=== PATIENT | female | born 1960 | race Caucasian/White ===

== ENCOUNTER 2016-05-01 12:46 | Emergency (ER) | payer MEDICARE ==
--- NOTE | 2016-05-01 14:02 | EDDOCDS ---
Nurse's Notes [facility] Name: Amy Mathis Age: 55 yrs Sex: Female : 1960 Arrival Date: 05/01/2016 Time: 12:46 Bed Triage 1 Private MD: Iban Carlos Diagnosis: Acute sinusitis Presentation: 05/01 12:55 Presenting complaint: Patient states: sick since day after Mary. Patient states hs1 needs something because she hasn't gotten any better. Patient states OTC not helping. Patient states ear ached left side and nasal congestion. Risk factors: Stridor is not present. Drooling is not present. Shortness of breath is not present. Cellulitis is not present. Adult Sepsis Screening: The patient does not have new or worsening altered mentation. Patient's respiratory rate is less than 22. Systolic blood pressure is greater than 100. Patient has a qSOFA score of 0- Negative Sepsis Screen. Suicide/Homicide risk assessment- the patient denies having any suicidal and/or homicidal ideations and does not present with any other emotional, behavioral or mental health complaints. Status: Patient is not a emergency service worker or dependent. Transition of care: patient was not received from another setting of care. 12:55 Acuity: KAYLEY Level 4 hs1 12:55 Method Of Arrival: Walkin/Carried/Asstd hs1 Triage Assessment: 12:57 General: Appears in no apparent distress, Behavior is appropriate for age, cooperative. hs1 Pain: Denies pain. Pain currently is 0 out of 10 on a pain scale. HIV screening NA for this visit Offered previously. EENT: Reports nasal congestion nasal discharge. Respiratory: Airway is patent Respiratory effort is even, unlabored, Respiratory pattern is regular, symmetrical. 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 none - PMHx: none; - PSHx: Cholecystectomy; Tubal ligation; - Family history: Son has/had similar symptoms recently. - Social history: Smoking status: Patient states former smoker of tobacco. No barriers to communication noted, The patient speaks fluent Gibraltarian. - : The pt / caregiver states he / she is not on anticoagulants. Home medication list is obtained from the patient. - Exposure Risk Screening:: None identified. Screenin:58 Screening information is obtained from the patient. Fall risk: No risks identified. hs1 Assistance ADL's: requires no assistance with activities of daily living. Abuse/DV Screen: The patient / caregiver reports he/she is: not in a situation that causes fear, pain or injury. Nutritional screening: No deficits noted. Advance Directives: There is no active DNR order. home support is adequate. Assessment: 13:52 General: Appears in no apparent distress, comfortable, obese, Behavior is appropriate ms18 for age, cooperative. Neurological: No deficits noted. Respiratory: Airway is patent Respiratory effort is even, unlabored. Derm: Skin is pink, warm & dry. 13:58 EENT: Throat is reddened. ms18 Vital Signs: 12:48 BP 156 / 94; Pulse 94; Resp 18 S; Temp 97.4(O); Pulse Ox 97% on R/A; Weight 125.19 kg dd6 (R); Height 5 ft. 4 in. (162.56 cm) (R); 13:55 Pulse 99; Resp 18; Pulse Ox 95% ; Pain 1/10; ms18 12:48 Body Mass Index 47.37 (125.19 kg, 162.56 cm) dd6 Vitals: 12:48 Log In Time: May 01, 2016 at 12:46. dd6 13:52 Strep Screen is obtained and tested: Negative, a GATSNEG culture is ordered in [facility] ms18 and sent. ED Course: 12:47 Patient visited by John Paul Oliva PCA. dd6 12:47 Iban Carlos is Private Physician. dd6 12:47 Patient moved to Waiting dd6 12:49 Patient moved to Pre RCE dd6 12:57 Triage Initiated hs1 13:16 [facility] ef1 13:16 Debbie Coles MD is Attending Physician. ef1 13:21 Patient moved to Triage 1 ms18 13:24 Patient visited by Verena Johnson PA-C. ef1 13:51 Iban Carlos is Referral Physician. ef1 13:53 No IV's were initiated during this patient's visit. No procedures done that require hs1 assistance. 13:55 The patient / caregiver is instructed regarding the plan of care and ED course. Patient ms18 has correct armband on for positive identification. Property sent home with patient. :Personal belongings accompany Pt. 13:55 GATS (NEGATIVE STREP SCREEN) Sent. ms18 Order Results: There are currently no results for this order. Outcome: 13:51 Discharge ordered by Provider. ef1 13:55 Discharge Assessment: Patient awake, alert and oriented x 3. No cognitive and/or ms18 functional deficits noted. Patient verbalized understanding of disposition instructions. patient administered narcotics - no. The following High Risk Discharge criteria are identified: None. Discharged to home ambulatory. Condition: good Condition: stable Condition: improved. Discharge instructions given to patient, Instructed on discharge instructions, follow up and referral plans. medication usage, Demonstrated understanding of instructions, medications, Pt was receptive of discharge instructions/ teaching. Prescriptions given X 3. No special radiology studies were completed. 14:01 Patient left the ED. ms18 Signatures: John Paul Oliva, CURING OVEN TENDER CURING OVEN TENDER dd6 Verena Johnson, PA-C PA-C ef1 Nikki Romano RN RN hs1 Maribell Luna RN RN ms18 Corrections: (The following items were deleted from the chart) 13:54 13:53 Discharge Assessment: Patient awake, alert and oriented x 3. No cognitive and/or hs1 functional deficits noted. Patient verbalized understanding of disposition instructions. patient administered narcotics - no [facility] 13:54 13:53 The following High Risk Discharge criteria are identified: None. Discharged to [facility] home ambulatory, with parent. [facility] 13:54 13:53 Condition: stable [place] [id number] 13:54 13:53 CT Study completed. [place] [address] 13:54 13:53 Discharge instructions given to parents Instructed on discharge instructions, [facility] follow up and referral plans. medication usage, Demonstrated understanding of instructions, medications, Pt was receptive of discharge instructions/ teaching. [facility] 13:54 13:53 Property sent home with patient. [place] [id number] MTDD
--- NOTE | 2016-05-01 14:02 | EDDOCDS ---
Physician Documentation [facility] Name: Amy Mathis Age: 55 yrs Sex: Female : 1960 Arrival Date: 05/01/2016 Time: 12:46 Bed Triage 1 Private MD: Iban Carlos Disposition: 05/01/16 13:51 Discharged to Home/Self Care. Impression: Acute sinusitis. - Condition is Stable. - Discharge Instructions: Sinusitis, [id number]. - Prescriptions for Augmentin 875- 125 mg Oral Tablet - take 1 tablet by ORAL route every 12 hours for 10 days; 20 tablet. Claritin 10 mg Oral Tablet - take 1 tablet by ORAL route once daily As needed; 30 tablet. Mucinex 600 mg - take 1 tablet by ORAL route 2 times per day; 30 tablet. - Medication Reconciliation, Local Pharmacy Hours form. - Follow up: Iban Carlos; When: 1 - 2 days; Reason: Recheck today's complaints, Continuance of care. Follow up: Emergency Department; Reason: Worsening of conditions. - Problem is new. - Symptoms are unchanged. Historical: - Allergies: No known drug Allergies; - Home Meds: 1. none - PMHx: none; - PSHx: Cholecystectomy; Tubal ligation; - Family history: Son has/had similar symptoms recently. - Social history: Smoking status: Patient states former smoker of tobacco. No barriers to communication noted, The patient speaks fluent Zambian. - : The pt / caregiver states he / she is not on anticoagulants. Home medication list is obtained from the patient. - Exposure Risk Screening:: None identified. 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 4 in. (162.56 cm) (R); 13:55 Pulse 99; Resp 18; Pulse Ox 95% ; Pain 1/10; ms18 12:48 Body Mass Index 47.37 (125.19 kg, 162.56 cm) dd6 MDM: 13:17 Strep Screen, Nursing ordered. ef1 13:53 GATS (NEGATIVE STREP SCREEN) Ordered. EDMS Signatures: Dispatcher [employer] EDMS Verena Johnson, JENELLE ALMANZAR ef1 Nikki Romano, RN RN hs1 Maribell LunaRN RN ms18 MTDD
--- NOTE | 2016-05-03 15:02 | EDDOCDS ---
Nurse's Notes [facility] Name: Amy Mathis Age: 55 yrs Sex: Female : 1960 Arrival Date: 05/01/2016 Time: 12:46 Bed Triage 1 Private MD: Iban Carlos Diagnosis: Acute sinusitis Presentation: 05/01 12:55 Presenting complaint: Patient states: sick since day after Mary. Patient states hs1 needs something because she hasn't gotten any better. Patient states OTC not helping. Patient states ear ached left side and nasal congestion. Risk factors: Stridor is not present. Drooling is not present. Shortness of breath is not present. Cellulitis is not present. Adult Sepsis Screening: The patient does not have new or worsening altered mentation. Patient's respiratory rate is less than 22. Systolic blood pressure is greater than 100. Patient has a qSOFA score of 0- Negative Sepsis Screen. Suicide/Homicide risk assessment- the patient denies having any suicidal and/or homicidal ideations and does not present with any other emotional, behavioral or mental health complaints. Status: Patient is not a support services specialist or dependent. Transition of care: patient was not received from another setting of care. 12:55 Acuity: KAYLEY Level 4 hs1 12:55 Method Of Arrival: Walkin/Carried/Asstd hs1 Triage Assessment: 12:57 General: Appears in no apparent distress, Behavior is appropriate for age, cooperative. hs1 Pain: Denies pain. Pain currently is 0 out of 10 on a pain scale. HIV screening NA for this visit Offered previously. EENT: Reports nasal congestion nasal discharge. Respiratory: Airway is patent Respiratory effort is even, unlabored, Respiratory pattern is regular, symmetrical. 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 none - PMHx: none; - PSHx: Cholecystectomy; Tubal ligation; - Family history: Son has/had similar symptoms recently. - Social history: Smoking status: Patient states former smoker of tobacco. No barriers to communication noted, The patient speaks fluent Prydeinig. - : The pt / caregiver states he / she is not on anticoagulants. Home medication list is obtained from the patient. - Exposure Risk Screening:: None identified. Screenin:58 Screening information is obtained from the patient. Fall risk: No risks identified. hs1 Assistance ADL's: requires no assistance with activities of daily living. Abuse/DV Screen: The patient / caregiver reports he/she is: not in a situation that causes fear, pain or injury. Nutritional screening: No deficits noted. Advance Directives: There is no active DNR order. home support is adequate. Assessment: 13:52 General: Appears in no apparent distress, comfortable, obese, Behavior is appropriate ms18 for age, cooperative. Neurological: No deficits noted. Respiratory: Airway is patent Respiratory effort is even, unlabored. Derm: Skin is pink, warm & dry. 13:58 EENT: Throat is reddened. ms18 Vital Signs: 12:48 BP 156 / 94; Pulse 94; Resp 18 S; Temp 97.4(O); Pulse Ox 97% on R/A; Weight 125.19 kg dd6 (R); Height 5 ft. 4 in. (162.56 cm) (R); 13:55 Pulse 99; Resp 18; Pulse Ox 95% ; Pain 1/10; ms18 12:48 Body Mass Index 47.37 (125.19 kg, 162.56 cm) dd6 Vitals: 12:48 Log In Time: May 01, 2016 at 12:46. dd6 13:52 Strep Screen is obtained and tested: Negative, a GATSNEG culture is ordered in [facility] ms18 and sent. ED Course: 12:47 Patient visited by John Paul Oliva PCA. dd6 12:47 Iban Carlos is Private Physician. dd6 12:47 Patient moved to Waiting dd6 12:49 Patient moved to Pre RCE dd6 12:57 Triage Initiated hs1 13:16 [facility] ef1 13:16 Debbie Coles MD is Attending Physician. ef1 13:21 Patient moved to Triage 1 ms18 13:24 Patient visited by Verena Johnson PA-C. ef1 13:51 Iban Carlos is Referral Physician. ef1 13:53 No IV's were initiated during this patient's visit. No procedures done that require hs1 assistance. 13:55 The patient / caregiver is instructed regarding the plan of care and ED course. Patient ms18 has correct armband on for positive identification. Property sent home with patient. :Personal belongings accompany Pt. 13:55 GATS (NEGATIVE STREP SCREEN) Sent. ms18 14:04 [facility] Payment Agreement was scanned into MED[employer] and attached to record. pm4 14:47 T-Sheet-- Draft Copy was scanned into [employer] and attached to record. gb Order Results: There are currently no results for this order. Outcome: 13:51 Discharge ordered by Provider. ef1 13:55 Discharge Assessment: Patient awake, alert and oriented x 3. No cognitive and/or ms18 functional deficits noted. Patient verbalized understanding of disposition instructions. patient administered narcotics - no. The following High Risk Discharge criteria are identified: None. Discharged to home ambulatory. Condition: good Condition: stable Condition: improved. Discharge instructions given to patient, Instructed on discharge instructions, follow up and referral plans. medication usage, Demonstrated understanding of instructions, medications, Pt was receptive of discharge instructions/ teaching. Prescriptions given X 3. No special radiology studies were completed. 14:01 Patient left the ED. ms18 Signatures: Naima Hernandez, Reg Reg gb John Paul Oliva, COOK HELPER PRESERVES COOK HELPER PRESERVES dd6 Verena Johnson, PA-C PA-C ef1 Nikki Romano RN RN hs1 Maribell Luna RN RN ms18 Vitor Dorsey, Reg Reg pm4 Corrections: (The following items were deleted from the chart) 13:54 13:53 Discharge Assessment: Patient awake, alert and oriented x 3. No cognitive and/or hs1 functional deficits noted. Patient verbalized understanding of disposition instructions. patient administered narcotics - no 1 13:54 13:53 The following High Risk Discharge criteria are identified: None. Discharged to [facility] home ambulatory, with parent. hs1 13:54 13:53 Condition: stable hs1 hs1 13:54 13:53 CT Study completed. 1 1 13:54 13:53 Discharge instructions given to parents Instructed on discharge instructions, 1 follow up and referral plans. medication usage, Demonstrated understanding of instructions, medications, Pt was receptive of discharge instructions/ teaching. hs1 13:54 13:53 Property sent home with patient. 1 [facility] Chart Complete MTDD
--- NOTE | 2016-05-03 15:02 | EDDOCDS ---
Physician Documentation [facility] Name: Amy Mathis Age: 55 yrs Sex: Female : 1960 Arrival Date: 05/01/2016 Time: 12:46 Bed Triage 1 Private MD: Iban Carlos Disposition: 05/01/16 13:51 Discharged to Home/Self Care. Impression: Acute sinusitis. - Condition is Stable. - Discharge Instructions: Sinusitis, [id number]. - Prescriptions for Augmentin 875- 125 mg Oral Tablet - take 1 tablet by ORAL route every 12 hours for 10 days; 20 tablet. Claritin 10 mg Oral Tablet - take 1 tablet by ORAL route once daily As needed; 30 tablet. Mucinex 600 mg - take 1 tablet by ORAL route 2 times per day; 30 tablet. - Medication Reconciliation, Local Pharmacy Hours form. - Follow up: Iban Carlos; When: 1 - 2 days; Reason: Recheck today's complaints, Continuance of care. Follow up: Emergency Department; Reason: Worsening of conditions. - Problem is new. - Symptoms are unchanged. Historical: - Allergies: No known drug Allergies; - Home Meds: 1. none - PMHx: none; - PSHx: Cholecystectomy; Tubal ligation; - Family history: Son has/had similar symptoms recently. - Social history: Smoking status: Patient states former smoker of tobacco. No barriers to communication noted, The patient speaks fluent Lithuanian. - : The pt / caregiver states he / she is not on anticoagulants. Home medication list is obtained from the patient. - Exposure Risk Screening:: None identified. 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 4 in. (162.56 cm) (R); 13:55 Pulse 99; Resp 18; Pulse Ox 95% ; Pain 1/10; ms18 12:48 Body Mass Index 47.37 (125.19 kg, 162.56 cm) dd6 MDM: 13:17 Strep Screen, Nursing ordered. ef1 13:53 GATS (NEGATIVE STREP SCREEN) Ordered. EDMS 14:04 [facility] Payment Agreement was scanned into MED[employer] and attached to record. pm4 14:47 T-Sheet-- Draft Copy was scanned into MEDHOST and attached to record. gb Signatures: Dispatcher [employer] EDMS Naima Hernandez, Reg Reg gb Verena Johnson PA-C PA-C ef1 Nikki Romano RN RN hs1 Maribell Luna RN RN ms18 Vitor Dorsey, Reg Reg pm4 The chart was reviewed and I authenticate all verbal orders and agree with the evaluation and treatment provided.Attachments: 14:04 [place] [place] pm4 14:47 T-Sheet-- Draft Copy gb Chart Complete MTDD
--- NOTE | 2016-05-03 15:02 | EDDOCDS ---
Physician Documentation [facility] Name: Amy Mathis Age: 55 yrs Sex: Female : 1960 Arrival Date: 05/01/2016 Time: 12:46 Bed Triage 1 Private MD: Iban Carlos Disposition: 05/01/16 13:51 Discharged to Home/Self Care. Impression: Acute sinusitis. - Condition is Stable. - Discharge Instructions: Sinusitis, [id number]. - Prescriptions for Augmentin 875- 125 mg Oral Tablet - take 1 tablet by ORAL route every 12 hours for 10 days; 20 tablet. Claritin 10 mg Oral Tablet - take 1 tablet by ORAL route once daily As needed; 30 tablet. Mucinex 600 mg - take 1 tablet by ORAL route 2 times per day; 30 tablet. - Medication Reconciliation, Local Pharmacy Hours form. - Follow up: Iban Carlos; When: 1 - 2 days; Reason: Recheck today's complaints, Continuance of care. Follow up: Emergency Department; Reason: Worsening of conditions. - Problem is new. - Symptoms are unchanged. Historical: - Allergies: No known drug Allergies; - Home Meds: 1. none - PMHx: none; - PSHx: Cholecystectomy; Tubal ligation; - Family history: Son has/had similar symptoms recently. - Social history: Smoking status: Patient states former smoker of tobacco. No barriers to communication noted, The patient speaks fluent Swiss. - : The pt / caregiver states he / she is not on anticoagulants. Home medication list is obtained from the patient. - Exposure Risk Screening:: None identified. 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 4 in. (162.56 cm) (R); 13:55 Pulse 99; Resp 18; Pulse Ox 95% ; Pain 1/10; ms18 12:48 Body Mass Index 47.37 (125.19 kg, 162.56 cm) dd6 MDM: 13:17 Strep Screen, Nursing ordered. ef1 13:53 GATS (NEGATIVE STREP SCREEN) Ordered. EDMS 14:04 [place] Payment Agreement was scanned into MEDHOST and attached to record. pm4 14:47 T-Sheet-- Draft Copy was scanned into MEDHOST and attached to record. gb Signatures: Dispatcher [employer] EDMS Naima Hernandez, Reg Reg gb Verena Johnson PA-C PA-C ef1 Nikki Romano RN RN hs1 Maribell Luna RN RN ms18 Vitor Dorsey, Reg Reg pm4 The chart was reviewed and I authenticate all verbal orders and agree with the evaluation and treatment provided.Attachments: 14:04 [place] [place] pm4 14:47 T-Sheet-- Draft Copy gb Chart Complete MTDD
--- NOTE | 2016-05-05 13:13 | EDDOCDS ---
Physician Documentation [facility] Name: Amy Mathis Age: 55 yrs Sex: Female : 1960 Arrival Date: 05/01/2016 Time: 12:46 Bed Triage 1 Private MD: Iban Carlos Disposition: 05/01/16 13:51 Discharged to Home/Self Care. Impression: Acute sinusitis. - Condition is Stable. - Discharge Instructions: Sinusitis, [id number]. - Prescriptions for Augmentin 875- 125 mg Oral Tablet - take 1 tablet by ORAL route every 12 hours for 10 days; 20 tablet. Claritin 10 mg Oral Tablet - take 1 tablet by ORAL route once daily As needed; 30 tablet. Mucinex 600 mg - take 1 tablet by ORAL route 2 times per day; 30 tablet. - Medication Reconciliation, Local Pharmacy Hours form. - Follow up: Iban Carlos; When: 1 - 2 days; Reason: Recheck today's complaints, Continuance of care. Follow up: Emergency Department; Reason: Worsening of conditions. - Problem is new. - Symptoms are unchanged. Historical: - Allergies: No known drug Allergies; - Home Meds: 1. none - PMHx: none; - PSHx: Cholecystectomy; Tubal ligation; - Family history: Son has/had similar symptoms recently. - Social history: Smoking status: Patient states former smoker of tobacco. No barriers to communication noted, The patient speaks fluent Salvadorean. - : The pt / caregiver states he / she is not on anticoagulants. Home medication list is obtained from the patient. - Exposure Risk Screening:: None identified. 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 4 in. (162.56 cm) (R); 13:55 Pulse 99; Resp 18; Pulse Ox 95% ; Pain 1/10; ms18 12:48 Body Mass Index 47.37 (125.19 kg, 162.56 cm) dd6 MDM: 13:17 Strep Screen, Nursing ordered. ef1 13:53 GATS (NEGATIVE STREP SCREEN) Ordered. EDMS 14:04 [place] Payment Agreement was scanned into MEDHOST and attached to record. pm4 14:47 T-Sheet-- Draft Copy was scanned into MEDHOST and attached to record. gb Signatures: Dispatcher [employer] EDMS Naima Hernandez, Reg Reg gb Verena Johnson PA-C PA-C ef1 Nikki Romano RN RN hs1 Maribell Luna RN RN ms18 Vitor Dorsey, Reg Reg pm4 The chart was reviewed and I authenticate all verbal orders and agree with the evaluation and treatment provided.Attachments: 14:04 [place] [place] Payment Agreement pm4 14:47 T-Sheet-- Draft Copy gb Chart Complete MTDD
--- NOTE | 2016-05-05 13:13 | EDDOCDS ---
Physician Documentation [facility] Name: Amy Mathis Age: 55 yrs Sex: Female : 1960 Arrival Date: 05/01/2016 Time: 12:46 Bed Triage 1 Private MD: Iban Carlos Disposition: 05/01/16 13:51 Discharged to Home/Self Care. Impression: Acute sinusitis. - Condition is Stable. - Discharge Instructions: Sinusitis, Aeal-[id number]. - Prescriptions for Augmentin 875- 125 mg Oral Tablet - take 1 tablet by ORAL route every 12 hours for 10 days; 20 tablet. Claritin 10 mg Oral Tablet - take 1 tablet by ORAL route once daily As needed; 30 tablet. Mucinex 600 mg - take 1 tablet by ORAL route 2 times per day; 30 tablet. - Medication Reconciliation, Local Pharmacy Hours form. - Follow up: Iban Carlos; When: 1 - 2 days; Reason: Recheck today's complaints, Continuance of care. Follow up: Emergency Department; Reason: Worsening of conditions. - Problem is new. - Symptoms are unchanged. Historical: - Allergies: No known drug Allergies; - Home Meds: 1. none - PMHx: none; - PSHx: Cholecystectomy; Tubal ligation; - Family history: Son has/had similar symptoms recently. - Social history: Smoking status: Patient states former smoker of tobacco. No barriers to communication noted, The patient speaks fluent Serbian. - : The pt / caregiver states he / she is not on anticoagulants. Home medication list is obtained from the patient. - Exposure Risk Screening:: None identified. 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 4 in. (162.56 cm) (R); 13:55 Pulse 99; Resp 18; Pulse Ox 95% ; Pain 1/10; ms18 12:48 Body Mass Index 47.37 (125.19 kg, 162.56 cm) dd6 MDM: 13:17 Strep Screen, Nursing ordered. ef1 13:53 GATS (NEGATIVE STREP SCREEN) Ordered. EDMS 14:04 [place] Payment Agreement was scanned into [employer] and attached to record. pm4 14:47 T-Sheet-- Draft Copy was scanned into MED[employer] and attached to record. gb Signatures: Dispatcher [employer] EDMS Naima Hernandez, Reg Reg gb Verena Johnson PA-C PA-C ef1 Nikki Romano RN RN hs1 Maribell Luna RN RN ms18 Vitor Dorsey, Reg Reg pm4 The chart was reviewed and I authenticate all verbal orders and agree with the evaluation and treatment provided.Attachments: 14:04 [place] Payment Agreement pm4 14:47 T-Sheet-- Draft Copy gb Chart Complete MTDD
--- NOTE | 2016-05-05 13:13 | EDDOCDS ---
[facility] Name: Amy Mathis Age: 55 yrs Sex: Female : 1960 Arrival Date: 05/01/2016 Time: 12:46 Bed Triage 1 Private MD: Iban Carlos Diagnosis: Acute sinusitis Presentation: 05/01 12:55 Presenting complaint: Patient states: sick since day after Mary. Patient states hs1 needs something because she hasn't gotten any better. Patient states OTC not helping. Patient states ear ached left side and nasal congestion. Risk factors: Stridor is not present. Drooling is not present. Shortness of breath is not present. Cellulitis is not present. Adult Sepsis Screening: The patient does not have new or worsening altered mentation. Patient's respiratory rate is less than 22. Systolic blood pressure is greater than 100. Patient has a qSOFA score of 0- Negative Sepsis Screen. Suicide/Homicide risk assessment- the patient denies having any suicidal and/or homicidal ideations and does not present with any other emotional, behavioral or mental health complaints. Status: Patient is not a provider service representative or dependent. Transition of care: patient was not received from another setting of care. 12:55 Acuity: KAYLEY Level 4 hs1 12:55 Method Of Arrival: Walkin/Carried/Asstd hs1 Triage Assessment: 12:57 General: Appears in no apparent distress, Behavior is appropriate for age, cooperative. hs1 Pain: Denies pain. Pain currently is 0 out of 10 on a pain scale. HIV screening NA for this visit Offered previously. EENT: Reports nasal congestion nasal discharge. Respiratory: Airway is patent Respiratory effort is even, unlabored, Respiratory pattern is regular, symmetrical. 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 none - PMHx: none; - PSHx: Cholecystectomy; Tubal ligation; - Family history: Son has/had similar symptoms recently. - Social history: Smoking status: Patient states former smoker of tobacco. No barriers to communication noted, The patient speaks fluent Iranian. - : The pt / caregiver states he / she is not on anticoagulants. Home medication list is obtained from the patient. - Exposure Risk Screening:: None identified. Screenin:58 Screening information is obtained from the patient. Fall risk: No risks identified. hs1 Assistance ADL's: requires no assistance with activities of daily living. Abuse/DV Screen: The patient / caregiver reports he/she is: not in a situation that causes fear, pain or injury. Nutritional screening: No deficits noted. Advance Directives: There is no active DNR order. home support is adequate. Assessment: 13:52 General: Appears in no apparent distress, comfortable, obese, Behavior is appropriate ms18 for age, cooperative. Neurological: No deficits noted. Respiratory: Airway is patent Respiratory effort is even, unlabored. Derm: Skin is pink, warm & dry. 13:58 EENT: Throat is reddened. ms18 Vital Signs: 12:48 BP 156 / 94; Pulse 94; Resp 18 S; Temp 97.4(O); Pulse Ox 97% on R/A; Weight 125.19 kg dd6 (R); Height 5 ft. 4 in. (162.56 cm) (R); 13:55 Pulse 99; Resp 18; Pulse Ox 95% ; Pain 1/10; ms18 12:48 Body Mass Index 47.37 (125.19 kg, 162.56 cm) dd6 Vitals: 12:48 Log In Time: May 01, 2016 at 12:46. dd6 13:52 Strep Screen is obtained and tested: Negative, a GATSNEG culture is ordered in [facility] ms18 and sent. ED Course: 12:47 Patient visited by John Paul Oliva PCA. dd6 12:47 Iban Carlos is Private Physician. dd6 12:47 Patient moved to Waiting dd6 12:49 Patient moved to Pre RCE dd6 12:57 Triage Initiated hs1 13:16 Verena Johnson PA-C is [facility]. ef1 13:16 Debbie Coles MD is Attending Physician. ef1 13:21 Patient moved to Triage 1 ms18 13:24 Patient visited by Verena Johnson PA-C. ef1 13:51 Iban Carlos is Referral Physician. ef1 13:53 No IV's were initiated during this patient's visit. No procedures done that require hs1 assistance. 13:55 The patient / caregiver is instructed regarding the plan of care and ED course. Patient ms18 has correct armband on for positive identification. Property sent home with patient. :Personal belongings accompany Pt. 13:55 GATS (NEGATIVE STREP SCREEN) Sent. ms18 14:04 [facility] Payment Agreement was scanned into MEDHOMotally and attached to record. pm4 14:47 T-Sheet-- Draft Copy was scanned into [email or web address] and attached to record. gb Order Results: Lab Order: GATS (NEGATIVE STREP SCREEN); SPEC'M 05/01/16 13:38 Test: GATS CULTURE (NEG STREP SCR); Value: GATS RESULT NEGATIVE FOR STREP PYOGENES (GROUP A); Status: F Test: GATS CULTURE (NEG STREP SCR); Value: ORGANISM 1: STREP AGALACTIAE GROUP B; Status: F Test: GATS CULTURE (NEG STREP SCR); Value: STREP AGALACTIAE GROUP B; Status: F Test: GATS CULTURE (NEG STREP SCR); Value: QUANTITY OF GROWTH FEW; Status: F Outcome: 13:51 Discharge ordered by Provider. ef1 13:55 Discharge Assessment: Patient awake, alert and oriented x 3. No cognitive and/or ms18 functional deficits noted. Patient verbalized understanding of disposition instructions. patient administered narcotics - no. The following High Risk Discharge criteria are identified: None. Discharged to home ambulatory. Condition: good Condition: stable Condition: improved. Discharge instructions given to patient, Instructed on discharge instructions, follow up and referral plans. medication usage, Demonstrated understanding of instructions, medications, Pt was receptive of discharge instructions/ teaching. Prescriptions given X 3. No special radiology studies were completed. 14:01 Patient left the ED. ms18 Signatures: Naima Hernandez, Reg Reg gb John Paul Oliva, GRAPHIC ART DESIGNER GRAPHIC ART DESIGNER dd6 Verena Johnson, PA-C PA-C ef1 Nikki Romano RN RN hs1 Maribell Luna RN RN ms18 Vitor Dorsey, Reg Reg pm4 Corrections: (The following items were deleted from the chart) 13:54 13:53 Discharge Assessment: Patient awake, alert and oriented x 3. No cognitive and/or hs1 functional deficits noted. Patient verbalized understanding of disposition instructions. patient administered narcotics - no hs1 13:54 13:53 The following High Risk Discharge criteria are identified: None. Discharged to [facility] home ambulatory, with parent. hs1 13:54 13:53 Condition: stable hs1 hs1 13:53 CT Study completed. hs1 hs1 13:53 Discharge instructions given to parents Instructed on discharge instructions, hs1 follow up and referral plans. medication usage, Demonstrated understanding of instructions, medications, Pt was receptive of discharge instructions/ teaching. hs1 13:53 Property sent home with patient. hs1 hs1 Chart Complete MTDD
== END 2016-05-01 14:01 | disposition home or self-care (01) ==
LOC: M ED 12:46
DX: J01.90 Acute sinusitis, unspecified (principal); Z87.891 Personal history of nicotine dependence

== ENCOUNTER 2016-07-30 20:39 | Emergency (ER) | payer MEDICARE ==
[~2016-07-30] VITALS: Ht 162.6 cm; Wt 117.9 kg
[2016-07-30 20:40] VITALS: BP 203/89
== END 2016-07-30 22:59 | disposition left against medical advice (07) ==
LOC: M ED 22:46
DX: R51 Headache (principal); Z53.21 Procedure and treatment not carried out due to patient leaving prior to being seen by health care provider

== ENCOUNTER → 2016-11-08 | Outpatient (REF) | payer MEDICARE ==
[2016-11-08 15:14] LABS: MEAN CORPUSCULAR HEMOGLOBIN 27.1 pg (27.0-33.0); MEAN CORPUSCULAR HGB CONC 32.9 g/dl (32.0-36.5); MEAN CORPUSCULAR VOLUME 82.4 fl (80.0-96.0); RED CELL DISTRIBUTION WIDTH 14.7 % (11.5-14.5)
[2016-11-08 16:09] LABS: ALBUMIN 3.6 GM/DL (3.2-5.2); ALBUMIN/GLOBULIN RATIO 0.95 (1.00-1.93); ALKALINE PHOSPHATASE 103 U/L (45-117); ALT/SGPT 23 U/L (12-78); ANION GAP 7 MEQ/L (8-16); AST/SGOT 16 U/L (15-37); BILIRUBIN,TOTAL 0.4 MG/DL (0.2-1.0); BLOOD UREA NITROGEN 17 MG/DL (7-18); CALCIUM LEVEL 9.3 MG/DL (8.5-10.1); CARBON DIOXIDE LEVEL 28 MEQ/L (21-32); CHLORIDE LEVEL 102 MEQ/L (98-107); CHOLESTEROL LEVEL 235 MG/DL (<200); CREATININE FOR GFR 0.74 MG/DL (0.55-1.02); GLOMERULAR FILTRATION RATE > 60.0 (>51); GLUCOSE, FASTING 100 MG/DL (70-105); POTASSIUM SERUM 4.4 MEQ/L (3.5-5.1); SODIUM LEVEL 137 MEQ/L (136-145); TOTAL PROTEIN 7.4 GM/DL (6.4-8.2); TRIGLYCERIDES LEVEL 333 MG/DL (<150)
== END ==
LOC: M LAB REF 12:56
PROVIDERS: ATTEND Nurse Practitioner Family
DX: I10 Essential (primary) hypertension (principal); R07.89 Other chest pain; R06.09 Other forms of dyspnea; R61 Generalized hyperhidrosis; Z13.220 Encounter for screening for lipoid disorders; R20.2 Paresthesia of skin; Z13.29 Encounter for screening for other suspected endocrine disorder

== ENCOUNTER → 2016-11-23 | Outpatient (CLI) | payer MEDICARE ==
--- NOTE | 2016-11-23 16:45 | ECGEPIP ---
Stationary ECG Study [facility] Test Date: 2016-11-23 Pat Name: ANGELY HOYOS Department: Room: - Gender: F Regional Trainer: NIKKI : 1960 Requested By: Dari Wood [facility] Order Number: [id number] Reading MD: Fredy Caba Measurements Intervals [place] Rate: 93 P: 58 [place]: 158 QRS: 26 QRSD: 86 T: 49 QT: 365 QTc: 454 Interpretive Statements SINUS RHYTHM Somewhat prominent R waves in V1 and V2, and persistent S waves in V5 and V6, and small Q waves III and aVF; body habitus versus pulmonary disease. Rule out prior inferoposterior injury. No acute ST/T-wave abnormality. No prior tracing for comparison. Clinical correlation advised Electronically Signed On 11-23-2016 16:45:27 EDT by Fredy Caba
--- NOTE | 2016-11-23 17:18 | REP ---
HISTORY: Dyspnea. COMPARISON: 06/25/2013 FINDINGS: The superior mediastinal structures are midline. The cardiac silhouette is unremarkable in size, shape and position. The diaphragmatic surfaces of the lungs are regular and the costophrenic angles are clear. The pulmonary troy are clear. The imaged osseous structures are intact. IMPRESSION: There is no acute cardiopulmonary disease. No significant change from the prior exam. Signed by Ace Vitale DO 11/28/2016 04:24 P
== END ==
LOC: M EKG 15:48
PROVIDERS: ATTEND Nurse Practitioner Family
DX: R06.09 Other forms of dyspnea (principal); R07.89 Other chest pain

== ENCOUNTER → 2018-07-23 | Outpatient (CLI) | payer BC ==
[2018-07-23 13:55] LABS: ALBUMIN 3.9 GM/DL (3.2-5.2); CALCIUM LEVEL 9.2 MG/DL (8.5-10.1); CREATININE FOR GFR 1.08 MG/DL (0.55-1.30); FREE T4 1.03 NG/DL (0.76-1.46); GLOMERULAR FILTRATION RATE 55.7 (>51); PHOSPHORUS LEVEL 4.6 MG/DL (2.5-4.9); POTASSIUM SERUM 4.3 MEQ/L (3.5-5.1); THYROID STIMULATING HORMONE 3.07 uIU/ML (0.358-3.740)
[2018-07-23 14:11] LABS: BASO # 0.1 10^3/uL (0.0-0.2); BASO % 0.7 % (0.0-1.0); EOS # 0.2 10^3/uL (0.0-0.50); EOS % 1.7 % (0.0-3.0); HEMATOCRIT 40.7 % (36.0-47.0); HEMOGLOBIN 12.8 g/dl (12.0-15.5); LYMPH # 3.2 10^3/uL (1.5-4.5); LYMPH % 29.3 % (24.0-44.0); MEAN CORPUSCULAR HEMOGLOBIN 26.4 pg (27.0-33.0); MEAN CORPUSCULAR HGB CONC 31.4 g/dl (32.0-36.5); MEAN CORPUSCULAR VOLUME 83.9 fl (80.0-96.0); MONO # 0.7 10^3/uL (0.0-0.8); MONO % 6.5 % (0.0-5.0); NEUTROPHILS # 6.6 10^3/uL (1.8-7.7); NEUTROPHILS % 61.1 % (36.0-66.0); PLATELET COUNT, AUTOMATED 284 10^3/uL (150-450); RED BLOOD COUNT 4.85 10^6/uL (4.00-5.40); WHITE BLOOD COUNT 10.8 10^3/uL (4.0-10.0)
[2018-07-23 15:02] LABS: HEMOGLOBIN A1c 5.7 %
== END ==
LOC: M WUC 09:36
PROVIDERS: ATTEND Physician Assistant
DX: I10 Essential (primary) hypertension (principal)

== ENCOUNTER → 2020-09-14 | Outpatient (REF) | payer BC | LOC: M LAB REF 14:56 | PROVIDERS: ATTEND Physician Assistant | DX: R30.0 Dysuria (principal) ==

== ENCOUNTER 2020-11-18 14:36 | Emergency (ER) | payer BC ==
[~2020-11-18] VITALS: Ht 162.6 cm; Wt 134.6 kg
[2020-11-18] MEDS ORDERED: LOSA25TA14 (15:30)
[2020-11-18 19:10] LABS: BASO # 0.1 10^3/uL (0.0-0.2); BASO % 0.4 % (0.0-1.0); EOS # 0.1 10^3/uL (0.0-0.5); EOS % 0.6 % (0.0-3.0); HEMATOCRIT 40.9 % (36.0-47.0); HEMOGLOBIN 13.1 g/dl (12.0-15.5); LYMPH % 13.6 % (24.0-44.0); MEAN CORPUSCULAR HEMOGLOBIN 25.6 pg (27.0-33.0); MONO # 0.9 10^3/uL (0.0-0.8); MONO % 5.9 % (2.0-8.0); NEUTROPHILS # 11.8 10^3/uL (1.5-8.5); PLATELET COUNT, AUTOMATED 274 10^3/uL (150-450); RED BLOOD COUNT 5.11 10^6/uL (4.00-5.40)
[2020-11-18 19:28] LABS: ALBUMIN 3.7 GM/DL (3.2-5.2); ALT/SGPT 19 U/L (12-78); BILIRUBIN,DIRECT < 0.1 MG/DL (0.0-0.2); BILIRUBIN,TOTAL 0.5 MG/DL (0.2-1.0); BLOOD UREA NITROGEN 30 MG/DL (7-18); CALCIUM LEVEL 9.8 MG/DL (8.5-10.1); CARBON DIOXIDE LEVEL 26 MEQ/L (21-32); CHLORIDE LEVEL 104 MEQ/L (98-107); CREATININE FOR GFR 1.99 MG/DL (0.55-1.30); GLOMERULAR FILTRATION RATE 27.3 (>51); GLUCOSE, FASTING 102 MG/DL (70-100); LIPASE 70 U/L (73-393); POTASSIUM SERUM 4.6 MEQ/L (3.5-5.1); SODIUM LEVEL 137 MEQ/L (136-145); TOTAL PROTEIN 8.5 GM/DL (6.4-8.2)
--- NOTE | 2020-11-18 21:33 | REPVR ---
PROCEDURE INFORMATION: Exam: US Pelvis Complete, Transabdominal and US Pelvis, Transvaginal Exam date and time: 11/18/2020 8:13 PM Age: 60 years old Clinical indication: Postmenopausal vaginal bleeding. TECHNIQUE: Imaging protocol: Real-time transabdominal and transvaginal pelvic ultrasound (complete) with image documentation. Transvaginal imaging was used for better evaluation of the endometrium, adnexa, and/or cervix. COMPARISON: No relevant prior studies available. FINDINGS: Uterus/cervix: The uterus is anteverted, heterogeneous, and measures 8.2 cm x 4.8 cm x 5.1 cm. The endometrium is thickened and measures approximately 14 mm in thickness. The uterus and endometrium are poorly visualized due to the patient's body habitus. Right adnexa: The right ovary was not visualized due to obscuration by intestinal gas. Left adnexa: The left ovary was not visualized due to obscuration by intestinal gas. Intraperitoneal space: No free fluid is seen in the pelvis from the images obtained. Urinary bladder: The urinary bladder was not distended for optimal evaluation. IMPRESSION: Thickened endometrium. Electronically signed by: Logan Barnes On 11/18/2020 21:32:41 PM
--- NOTE | 2020-11-18 21:33 | REPVR ---
PROCEDURE INFORMATION: Exam: US Retroperitoneal Limited, Kidneys Exam date and time: 11/18/2020 8:13 PM Age: 60 years old Clinical indication: Left flank pain. TECHNIQUE: Imaging protocol: Real-time ultrasound of the retroperitoneum with image documentation. Examination was focused on the kidneys. COMPARISON: No relevant prior studies available. FINDINGS: Right kidney: The right kidney is normal in appearance and measures 10.9 cm in length. There is no renal cortical thinning. The renal cortical echogenicity is within normal limits. No renal lesion is seen. There is no hydronephrosis. No obvious stones are seen in the renal collecting system. Left kidney: The left kidney measures 12.8 cm in length. There is no renal cortical thinning. The renal cortical echogenicity is within normal limits. No renal lesion is seen. There is mild left hydronephrosis. No obvious stones are seen in the renal collecting system. IMPRESSION: Mild left hydronephrosis. Electronically signed by: Logan Barnes On 11/18/2020 21:32:47 PM
[2020-11-18] MEDS ORDERED: NS 1,000 ML IV ONE (22:10)
[2020-11-18] MEDS ORDERED: MORPHINE 4 MG/ML 1ML VIAL/SYRINGE (J2270) IV ONE (23:30)
[2020-11-18] MEDS ORDERED: ONDANSETRON 4MG/2ML VIAL IV ONE (23:30)
--- NOTE | 2020-11-18 23:32 | REPVR ---
PROCEDURE INFORMATION: Exam: CT Abdomen And Pelvis Without Contrast Exam date and time: 11/18/2020 11:00 PM Age: 60 years old Clinical indication: Left flank pain, elevated CR. TECHNIQUE: Imaging protocol: Computed tomography of the abdomen and pelvis without contrast. Radiation optimization: All CT scans at this facility use at least one of these dose optimization techniques: automated exposure control; mA and/or kV adjustment per patient size (includes targeted exams where dose is matched to clinical indication); or iterative reconstruction. COMPARISON: 1. US PELVIC NON-OB COMPLETE 11/18/2020 7:59 PM 2. RENAL US 11/18/2020 7:53:09 PM FINDINGS: Lungs: There is a 3 mm calcified granuloma in the left lower lobe. The lungs were not fully imaged. Heart: No cardiomegaly or pericardial effusion is noted. There are aortic valve and mitral annular calcifications. Mediastinal space: There is a small sliding hiatal hernia. Liver: No liver lesion is seen. The contour of the liver is smooth. The liver is enlarged and in craniocaudal dimension and at the level of the right midclavicular line, the liver measures 16.7 cm. Gallbladder and bile ducts: There has been a cholecystectomy. There is no fluid collection in the gallbladder fossa. No dilation of the bile ducts is noted. No calcified stones are seen in the common bile duct. Pancreas: Unremarkable. No dilation of the main pancreatic duct is noted. Spleen: Unremarkable. No splenomegaly is noted. Adrenal glands: There is a 1.3 cm left adrenal nodule that measures 24 Hounsfield units. The right adrenal gland is normal. Kidneys and ureters: There is a 4 mm calculus in the left proximal ureter and mild left hydronephrosis. There is a 2 mm calculus in a lower pole calyx of the left kidney and a 4 mm calculus in an interpolar calyx of the left kidney. No calculi are noted in the right renal collecting system or right ureter. There is a 1.3 cm fat density lesion in the posterior aspect of the upper pole of the left kidney, which is compatible with an angiomyolipoma (image 57 of the axial series 201). Stomach and bowel: The intra-abdominal portion of the stomach is unremarkable. The small bowel is unremarkable. There is colonic diverticulosis without evidence for diverticulitis. There is no evidence for a bowel obstruction, colitis, pneumatosis intestinalis, intussusception, volvulus, or perforated viscus. Appendix: Normal. There is no evidence for appendicitis. Intraperitoneal space: No free air. No ascites. No abscess. Retroperitoneal space: No fluid collection. No mass. Vasculature: The abdominal aorta is normal in caliber. There are extensive atherosclerotic calcifications. Incidental note is made of small round calcifications in the pelvis, which are compatible with phleboliths. Lymph nodes: No enlarged lymph nodes. Urinary bladder: The partially distended urinary bladder is unremarkable. No stones or masses are seen in the bladder. Reproductive: The endometrium is thickened and measures approximately 14 mm in thickness. The uterus is anteverted. The ovaries are unremarkable. No ovarian cyst or adnexal mass is identified. Bones/joints: There is no fracture or dislocation. No suspicious osteolytic or osteoblastic lesion. There are degenerative changes involving the lower thoracic spine and lumbar spine. Soft tissues: There is a small fat and fluid containing right paramedian ventral hernia located at the level of the left hepatic lobe (image 45 of the axial series 201). IMPRESSION: 1. 4 mm calculus in the left proximal ureter, left nephrolithiasis, and mild left hydronephrosis. 2. Thickened endometrium, which measures approximately 14 mm in thickness. 4. Small fat and fluid containing right paramedian ventral hernia located at the level of the left hepatic lobe. 5. 1.3 cm left adrenal nodule. Consider further evaluation with an adrenal protocol CT abdomen without and with intravenous contrast using 70-second and 15-minute scan delays after the administration of the intravenous contrast in 12 months. ([facility] System[facility]remy Bermudez, ACR White Paper, 2017) 6. 1.3 cm angiomyolipoma arising from the posterior aspect of the upper pole of the left kidney. 7. Colonic diverticulosis without evidence for diverticulitis. 8. Hepatomegaly. COMMENTS: 1. Consistent with the [employer]'s Incidental Findings Committee white paper (J Am Risa Radiol 2017): For any incidental adrenal lesion greater than 1 cm but less than 4 cm classified in this report as benign, likely benign, or containing fat (including classification as an adenoma or myelolipoma), no follow-up imaging is recommended per consensus recommendations based on imaging criteria. Further lab evaluation could be pursued if warranted based on clinical findings. 2. Consistent with the [employer]'s Incidental Findings Committee white paper (J Am Risa Radiol 2018): Any incidental renal lesion less than 1 cm or classified as too small to characterize, or any incidental cystic renal lesion characterized as simple-appearing, is likely benign. No follow-up imaging is recommended for these lesions per consensus recommendations based on imaging criteria. Electronically signed by: Logan Barnes On 11/18/2020 23:32:13 PM
[2020-11-19] MEDS ORDERED: FLOM0.4C39 PO (00:39)
[2020-11-19] MEDS ORDERED: ONDA4TAB6 PO (00:39)
[2020-11-19] MEDS ORDERED: HYDR-3713 PO (00:39)
[2020-11-19 00:46] VITALS: BP 144/65
--- NOTE | 2020-11-19 09:52 | ED PDOC ---
Post-Departure Follow-Up radiology report faxed to Dr. Sanchez, Debbie Roberson MD Nov 19, 2020 09:52
== END 2020-11-19 00:57 | disposition home or self-care (01) ==
LOC: M ED 14:36
DX: K76.0 Fatty (change of) liver, not elsewhere classified (principal); N20.1 Calculus of ureter; D30.02 Benign neoplasm of left kidney; K43.9 Ventral hernia without obstruction or gangrene; E27.9 Disorder of adrenal gland, unspecified; N85.00 Endometrial hyperplasia, unspecified; K57.30 Diverticulosis of large intestine without perforation or abscess without bleeding; R16.2 Hepatomegaly with splenomegaly, not elsewhere classified; I10 Essential (primary) hypertension
CPT/HCPCS: 36415; 74176; 76775; 76830; 76856; 80048; 80076; 81001; 83690; 85025; 99284; J2270; J2405

== ENCOUNTER 2021-03-10 15:31 | Inpatient (IN) | payer BC ==
[~2021-03-10] VITALS: Ht 162.6 cm; Wt 133.6 kg
[~2021-03-10 15:31] MED LIST: FLOM0.4C39 PO; HYDR-3713 PO; LOSA25TA13; ONDA4TAB6 PO
[2021-03-10 18:30] LABS: ABG BASE EXCESS -0.5 (-2.0-2.0); ABG HCO3 23.3 MEQ/L (22.0-26.0); ABG O2 SATURATION 92.9 % (95.0-99.0); ABG PARTIAL PRESSURE CO2 35.7 mmHg (35.0-45.0); ABG STANDARD HCO3 23.9 MEQ/L (22.0-26.0); ABG TOTAL CO2 24.4 MEQ/L (22.0-29.0); ABG pH (ARTERIAL) 7.432 UNITS (7.350-7.450)
[2021-03-10 19:25] LABS: BASO # 0.1 10^3/uL (0.0-0.2); BASO % 0.4 % (0.0-1.0); HEMOGLOBIN 12.1 g/dl (12.0-15.5); LYMPH # 1.3 10^3/uL (1.5-5.0); LYMPH % 8.1 % (24.0-44.0); MEAN CORPUSCULAR HEMOGLOBIN 25.1 pg (27.0-33.0); MEAN CORPUSCULAR VOLUME 80.9 fl (80.0-96.0); MONO # 0.5 10^3/uL (0.0-0.8); MONO % 3.2 % (2.0-8.0); NEUTROPHILS # 13.7 10^3/uL (1.5-8.5); NEUTROPHILS % 85.3 % (36.0-66.0); PLATELET COUNT, AUTOMATED 358 10^3/uL (150-450); RED BLOOD COUNT 4.82 10^6/uL (4.00-5.40)
[2021-03-10 19:49] LABS: CK-MB VALUE MASS < 1.0 NG/ML (<3.6); CPK CREATINE PHOSPHOKINASE 90 U/L (26-192); MB/CK RELATIVE INDEX 1.11 (< OR =4); TROPONIN I 0.06 NG/ML (< 0.10)
[2021-03-10 19:50] LABS: INR 1.03; PROTHROMBIN TIME 13.9 SECONDS (12.7-14.5)
[2021-03-10 19:51] LABS: PARTIAL THROMBOPLASTIN TIME 32.2 SECONDS (25.9-37.0)
[2021-03-10 19:53] LABS: D-DIMER QUANT 1863.45 ng/ml (<500)
[2021-03-10 19:55] LABS: ALBUMIN 2.4 GM/DL (3.2-5.2); BILIRUBIN,TOTAL 0.5 MG/DL (0.2-1.0); C REACTIVE PROTEIN QUANTITATIV 20.9 MG/DL (0.00-0.30); CALCIUM LEVEL 8.8 MG/DL (8.5-10.1); CREATININE FOR GFR 2.28 MG/DL (0.55-1.30); GLOMERULAR FILTRATION RATE 23.3 (>51); POTASSIUM SERUM 4.7 MEQ/L (3.5-5.1); TOTAL PROTEIN 7.5 GM/DL (6.4-8.2)
[2021-03-10] MEDS ORDERED: NS 1,000 ML IV ONE (20:05)
[2021-03-10] MEDS ORDERED: HOME MED LIST COMPLETE! XX SCH (20:45)
[2021-03-10] MEDS ORDERED: ACETAMINOPHEN TAB 650MG DOSE (2X325MG) PO PRN (20:45)
[2021-03-10] MEDS ORDERED: IPRATROPIUM 0.5MG/ALBUTEROL 2.5MG INH SOL UD 3ML (DUONEB) NEB PRN (20:45)
[2021-03-10] MEDS: dexameTHASONE 4 MG/ML 1ML VIAL (J1100 PER 1MG) IV SCH (22:23)
[2021-03-10] MEDS: guaiFENesin ER 600 MG TAB PO SCH (22:24)
[2021-03-10] MEDS ORDERED: REMDESIVIR 200 MG in NS 250 ML IV ONE (23:00)
[2021-03-11 00:07] LABS: ABG HCO3 21.4 MEQ/L (22.0-26.0); ABG O2 SATURATION 90.6 % (95.0-99.0); ABG PARTIAL PRESSURE CO2 36.2 mmHg (35.0-45.0); ABG PARTIAL PRESSURE O2 60.5 mmHg (75.0-100.0); ABG STANDARD HCO3 21.8 MEQ/L (22.0-26.0); ABG TOTAL CO2 22.5 MEQ/L (22.0-29.0); ABG pH (ARTERIAL) 7.389 UNITS (7.350-7.450)
[2021-03-11] MEDS ORDERED: SODIUM CHLORIDE 0.9% INJ 10 ML SYR IV ONE (01:00)
[2021-03-11] MEDS ORDERED: KETOROLAC 30 MG/ML 1ML VIAL IV PRN (04:55)
[2021-03-11] MEDS ORDERED: diphenhydrAMINE 50MG/ML VIAL (J1200) IV PRN (04:55)
[2021-03-11 07:18] LABS: HEMOGLOBIN 11.5 g/dl (12.0-15.5); MEAN CORPUSCULAR HEMOGLOBIN 24.8 pg (27.0-33.0); MEAN CORPUSCULAR HGB CONC 31.1 g/dl (32.0-36.5); MEAN CORPUSCULAR VOLUME 79.7 fl (80.0-96.0); PLATELET COUNT, AUTOMATED 312 10^3/uL (150-450); RED BLOOD COUNT 4.64 10^6/uL (4.00-5.40); WHITE BLOOD COUNT 12.5 10^3/uL (4.0-10.0)
[2021-03-11 07:46] LABS: ALBUMIN 2.1 GM/DL (3.2-5.2); ALT/SGPT 58 U/L (12-78); BILIRUBIN,DIRECT < 0.1 MG/DL (0.0-0.2); BILIRUBIN,TOTAL 0.3 MG/DL (0.2-1.0); BLOOD UREA NITROGEN 59 MG/DL (7-18); CALCIUM LEVEL 8.9 MG/DL (8.5-10.1); CARBON DIOXIDE LEVEL 25 MEQ/L (21-32); CHLORIDE LEVEL 103 MEQ/L (98-107); CREATININE FOR GFR 1.72 MG/DL (0.55-1.30); GLOMERULAR FILTRATION RATE 32.3 (>51); GLUCOSE, FASTING 158 MG/DL (70-100); MAGNESIUM LEVEL 2.9 MG/DL (1.8-2.4); POTASSIUM SERUM 3.7 MEQ/L (3.5-5.1); SODIUM LEVEL 136 MEQ/L (136-145); TOTAL PROTEIN 7.6 GM/DL (6.4-8.2)
[2021-03-11 07:52] LABS: ANISOCYTOSIS 1+; HYPOCHROMASIA 1+; LYMPHOCYTES 9 % (16-44); NEUTROPHILS 90 % (28-66); PLATELET ESTIMATE NORMAL (NORMAL); PROMYELOCYTES 1 % (0-0)
[2021-03-11 07:53] LABS: MICROCYTOSIS 1+
[2021-03-11] MEDS ORDERED: IPRATROPIUM 0.5MG/ALBUTEROL 2.5MG INH SOL UD 3ML (DUONEB) NEB SCH (08:00)
[2021-03-11 08:13] VITALS: BP 126/72
[2021-03-11] MEDS: LIDOCAINE 5% (LIDODERM) PATCH TD SCH ×2 (08:38→20:04)
[2021-03-11] MEDS: **NOTE PATIENT COMMENT** MISC XX SCH (09:00)
[2021-03-11] MEDS: guaiFENesin ER 600 MG TAB PO SCH ×2 (09:41→20:21)
[2021-03-11] MEDS: DOXYCYCLINE HYCLATE 100 MG in D5W MINI-BAG PLUS 100 ML IV SCH ×2 (09:41→20:21)
[2021-03-11] MEDS: ASPIRIN 81MG ENTERIC TABLET PO SCH (09:41)
[2021-03-11] MEDS: dexameTHASONE 4 MG/ML 1ML VIAL (J1100 PER 1MG) IV SCH (09:42)
[2021-03-11] MEDS: cefTRIAXone SOD 1 GM in D5W MINI-BAG PLUS 50 ML IV SCH (11:05)
[2021-03-11] MEDS: COMBIVENT RESPIMAT 100-20MCG INHALER 4GM INH SCH ×2 (11:51→20:40)
[2021-03-11 12:00] VITALS: BP 132/72
[2021-03-11] MEDS: BARICITINIB 2MG TABLET (OLUMIANT) FOR EUA PO SCH (14:39)
[2021-03-11] MEDS: HEPARIN SOD (PORCINE) 5000UNITS/ML 1ML VIAL/SYRINGE SQ SCH ×2 (14:39→21:42)
[2021-03-11 16:00] VITALS: BP 130/84
[2021-03-11 20:00] VITALS: BP 143/69
[2021-03-11] MEDS ORDERED: SODIUM CHLORIDE NASAL 0.65% SPRAY BTL (OCEAN) PRN (21:00)
[2021-03-11] MEDS ORDERED: PANTOPRAZOLE 40MG VIAL (C9113 PER 1) IV ONE (21:05)
[2021-03-11] MEDS: REMDESIVIR 100 MG in NS 250 ML IV SCH (23:06)
[2021-03-12] VITALS: BP 147/79
[2021-03-12] MEDS: SODIUM CHLORIDE 0.9% INJ 10 ML SYR IV SCH (00:21)
[2021-03-12] MEDS: COMBIVENT RESPIMAT 100-20MCG INHALER 4GM INH SCH ×4 (00:26→20:02)
[2021-03-12 04:00] VITALS: BP 154/84
[2021-03-12 05:02] LABS: HEMATOCRIT 34.4 % (36.0-47.0); HEMOGLOBIN 10.6 g/dl (12.0-15.5); MEAN CORPUSCULAR HGB CONC 30.8 g/dl (32.0-36.5); MEAN CORPUSCULAR VOLUME 81.1 fl (80.0-96.0); PLATELET COUNT, AUTOMATED 347 10^3/uL (150-450); RED BLOOD COUNT 4.24 10^6/uL (4.00-5.40); WHITE BLOOD COUNT 12.5 10^3/uL (4.0-10.0)
[2021-03-12 05:13] LABS: INR 0.97; PROTHROMBIN TIME 13.3 SECONDS (12.7-14.5)
[2021-03-12 05:14] LABS: PARTIAL THROMBOPLASTIN TIME 29.4 SECONDS (25.9-37.0)
[2021-03-12 05:24] LABS: TROPONIN I 0.04 NG/ML (< 0.10)
[2021-03-12 05:32] LABS: LYMPHOCYTES 12 % (16-44); MONOCYTES 2 % (0-5); MYELOCYTES 1 % (0-0); NEUTROPHILS 85 % (28-66); PLATELET ESTIMATE NORMAL (NORMAL)
[2021-03-12 05:33] LABS: ANISOCYTOSIS 1+
[2021-03-12 05:41] LABS: ALBUMIN 2.1 GM/DL (3.2-5.2); BILIRUBIN,DIRECT 0.1 MG/DL (0.0-0.2); BILIRUBIN,TOTAL 0.3 MG/DL (0.2-1.0); CALCIUM LEVEL 8.7 MG/DL (8.5-10.1); CREATININE FOR GFR 1.28 MG/DL (0.55-1.30); GLOMERULAR FILTRATION RATE 45.4 (>51); MAGNESIUM LEVEL 2.4 MG/DL (1.8-2.4); TOTAL PROTEIN 6.3 GM/DL (6.4-8.2)
[2021-03-12] MEDS: HEPARIN SOD (PORCINE) 5000UNITS/ML 1ML VIAL/SYRINGE SQ SCH ×3 (06:16→20:42)
[2021-03-12 08:00] VITALS: BP 168/84
[2021-03-12] MEDS: DOXYCYCLINE HYCLATE 100 MG in D5W MINI-BAG PLUS 100 ML IV SCH ×2 (08:10→20:42)
[2021-03-12] MEDS: **NOTE PATIENT COMMENT** MISC XX SCH (09:00)
[2021-03-12] MEDS: cefTRIAXone SOD 1 GM in D5W MINI-BAG PLUS 50 ML IV SCH (09:23)
[2021-03-12] MEDS: dexameTHASONE 4 MG/ML 1ML VIAL (J1100 PER 1MG) IV SCH (09:24)
[2021-03-12] MEDS: BARICITINIB 2MG TABLET (OLUMIANT) FOR EUA PO SCH (09:25)
[2021-03-12] MEDS: guaiFENesin ER 600 MG TAB PO SCH ×2 (09:25→20:42)
[2021-03-12] MEDS: ASPIRIN 81MG ENTERIC TABLET PO SCH (09:25)
[2021-03-12 12:00] VITALS: BP 153/81
[2021-03-12 16:00] VITALS: BP 160/75
[2021-03-12 20:00] VITALS: BP 161/74
[2021-03-12] MEDS: LIDOCAINE 5% (LIDODERM) PATCH TD SCH (20:42)
[2021-03-12] MEDS: REMDESIVIR 100 MG in NS 250 ML IV SCH (22:28)
[2021-03-13] VITALS: BP 150/70
[2021-03-13] MEDS: SODIUM CHLORIDE 0.9% INJ 10 ML SYR IV SCH (00:06)
[2021-03-13] MEDS: COMBIVENT RESPIMAT 100-20MCG INHALER 4GM INH SCH ×4 (01:39→20:00)
[2021-03-13 04:00] VITALS: BP 143/68
[2021-03-13 04:31] LABS: HEMATOCRIT 34.5 % (36.0-47.0); HEMOGLOBIN 10.5 g/dl (12.0-15.5); MEAN CORPUSCULAR HEMOGLOBIN 25.1 pg (27.0-33.0); MEAN CORPUSCULAR HGB CONC 30.4 g/dl (32.0-36.5); MEAN CORPUSCULAR VOLUME 82.5 fl (80.0-96.0); PLATELET COUNT, AUTOMATED 377 10^3/uL (150-450); RED BLOOD COUNT 4.18 10^6/uL (4.00-5.40); WHITE BLOOD COUNT 14.4 10^3/uL (4.0-10.0)
[2021-03-13 04:51] LABS: CALCIUM LEVEL 8.8 MG/DL (8.5-10.1); CREATININE FOR GFR 1.06 MG/DL (0.55-1.30); GLOMERULAR FILTRATION RATE 56.5 (>51); POTASSIUM SERUM 4.2 MEQ/L (3.5-5.1)
[2021-03-13 05:00] LABS: LYMPHOCYTES 6 % (16-44); METAMYELOCYTES 1 % (0-0); MONOCYTES 2 % (0-5); MYELOCYTES 2 % (0-0); NEUTROPHILS 89 % (28-66); PLATELET ESTIMATE NORMAL (NORMAL)
[2021-03-13 05:01] LABS: HYPOCHROMASIA 1+
[2021-03-13] MEDS: HEPARIN SOD (PORCINE) 5000UNITS/ML 1ML VIAL/SYRINGE SQ SCH ×3 (06:15→21:16)
[2021-03-13 08:00] VITALS: BP 154/81
[2021-03-13] MEDS: DOXYCYCLINE HYCLATE 100 MG in D5W MINI-BAG PLUS 100 ML IV SCH ×2 (08:05→20:00)
[2021-03-13] MEDS: **NOTE PATIENT COMMENT** MISC XX SCH (09:00)
[2021-03-13] MEDS: ASPIRIN 81MG ENTERIC TABLET PO SCH (09:14)
[2021-03-13] MEDS: guaiFENesin ER 600 MG TAB PO SCH (09:15)
[2021-03-13] MEDS: BARICITINIB 2MG TABLET (OLUMIANT) FOR EUA PO SCH (09:15)
[2021-03-13] MEDS: dexameTHASONE 4 MG/ML 1ML VIAL (J1100 PER 1MG) IV SCH (09:16)
[2021-03-13] MEDS: cefTRIAXone SOD 1 GM in D5W MINI-BAG PLUS 50 ML IV SCH (09:20)
[2021-03-13 12:00] VITALS: BP 152/84
[2021-03-13 16:00] VITALS: BP 131/80
[2021-03-13 20:00] VITALS: BP 145/70
[2021-03-13] MEDS: LIDOCAINE 5% (LIDODERM) PATCH TD SCH (21:16)
[2021-03-13] MEDS: REMDESIVIR 100 MG in NS 250 ML IV SCH (23:10)
[2021-03-14] VITALS: BP 132/74
[2021-03-14] MEDS: SODIUM CHLORIDE 0.9% INJ 10 ML SYR IV SCH (00:11)
[2021-03-14] MEDS: COMBIVENT RESPIMAT 100-20MCG INHALER 4GM INH SCH ×4 (02:18→19:28)
[2021-03-14 04:00] VITALS: BP 130/68
[2021-03-14 04:52] LABS: HEMOGLOBIN 10.4 g/dl (12.0-15.5); MEAN CORPUSCULAR HEMOGLOBIN 25.1 pg (27.0-33.0); MEAN CORPUSCULAR HGB CONC 30.6 g/dl (32.0-36.5); MEAN CORPUSCULAR VOLUME 81.9 fl (80.0-96.0); PLATELET COUNT, AUTOMATED 346 10^3/uL (150-450); RED BLOOD COUNT 4.15 10^6/uL (4.00-5.40); WHITE BLOOD COUNT 12.8 10^3/uL (4.0-10.0)
[2021-03-14 05:02] LABS: INR 0.94
[2021-03-14 05:03] LABS: PARTIAL THROMBOPLASTIN TIME 28.5 SECONDS (25.9-37.0)
[2021-03-14 05:14] LABS: TROPONIN I 0.04 NG/ML (< 0.10)
[2021-03-14 05:19] LABS: ALT/SGPT 46 U/L (12-78); BILIRUBIN,DIRECT < 0.1 MG/DL (0.0-0.2); BILIRUBIN,TOTAL 0.3 MG/DL (0.2-1.0); BLOOD UREA NITROGEN 31 MG/DL (7-18); CALCIUM LEVEL 8.1 MG/DL (8.5-10.1); CARBON DIOXIDE LEVEL 27 MEQ/L (21-32); CHLORIDE LEVEL 109 MEQ/L (98-107); CREATININE FOR GFR 0.88 MG/DL (0.55-1.30); FERRITIN 352 NG/ML (8-252); GLOMERULAR FILTRATION RATE > 60.0 (>51); GLUCOSE, FASTING 127 MG/DL (70-100); LDH LACTATE DEHYDROGENASE 399 U/L (84-246); MAGNESIUM LEVEL 1.7 MG/DL (1.8-2.4); NT-PRO BNP 502 PG/ML (<125); POTASSIUM SERUM 4.8 MEQ/L (3.5-5.1); SODIUM LEVEL 141 MEQ/L (136-145); TOTAL PROTEIN 5.9 GM/DL (6.4-8.2)
[2021-03-14 05:30] LABS: ANISOCYTOSIS 1+; LYMPHOCYTES 12 % (16-44); MONOCYTES 5 % (0-5); MYELOCYTES 3 % (0-0); NEUTROPHILS 76 % (28-66); PLATELET ESTIMATE NORMAL (NORMAL)
[2021-03-14] MEDS: HEPARIN SOD (PORCINE) 5000UNITS/ML 1ML VIAL/SYRINGE SQ SCH ×3 (06:12→20:31)
[2021-03-14 08:00] VITALS: BP 161/85
[2021-03-14] MEDS ORDERED: MAG SULF 1GM/100ML (MAG RUN) 1 GM in IV 1 EA IV ONE (08:00)
[2021-03-14 08:18] LABS: CK-MB VALUE MASS 1.5 NG/ML (<3.6); MB/CK RELATIVE INDEX 6.52 (< OR =4)
[2021-03-14] MEDS: **NOTE PATIENT COMMENT** MISC XX SCH (09:00)
[2021-03-14] MEDS: DOXYCYCLINE HYCLATE 100 MG in D5W MINI-BAG PLUS 100 ML IV SCH ×2 (09:16→20:28)
[2021-03-14] MEDS: BARICITINIB 2MG TABLET (OLUMIANT) FOR EUA PO SCH (09:27)
[2021-03-14] MEDS: ASPIRIN 81MG ENTERIC TABLET PO SCH (09:28)
[2021-03-14] MEDS: dexameTHASONE 4 MG/ML 1ML VIAL (J1100 PER 1MG) IV SCH ×2 (09:31→20:31)
[2021-03-14] MEDS: cefTRIAXone SOD 1 GM in D5W MINI-BAG PLUS 50 ML IV SCH (09:37)
[2021-03-14 12:00] VITALS: BP 162/72
[2021-03-14] MEDS: guaiFENesin ER 600 MG TAB PO SCH ×2 (12:06→20:31)
[2021-03-14 16:00] VITALS: BP 133/61
[2021-03-14 20:14] VITALS: BP 198/95
[2021-03-14] MEDS: LIDOCAINE 5% (LIDODERM) PATCH TD SCH (20:31)
[2021-03-14] MEDS: REMDESIVIR 100 MG in NS 250 ML IV SCH (23:23)
[2021-03-15] VITALS (7 sets, daily range): BP systolic 117–162; BP diastolic 61–88
[2021-03-15] MEDS: SODIUM CHLORIDE 0.9% INJ 10 ML SYR IV SCH (00:05)
[2021-03-15] MEDS: COMBIVENT RESPIMAT 100-20MCG INHALER 4GM INH SCH ×4 (01:18→19:19)
[2021-03-15 05:43] LABS: HEMATOCRIT 33.9 % (36.0-47.0); HEMOGLOBIN 10.4 g/dl (12.0-15.5); MEAN CORPUSCULAR HEMOGLOBIN 24.9 pg (27.0-33.0); MEAN CORPUSCULAR HGB CONC 30.7 g/dl (32.0-36.5); MEAN CORPUSCULAR VOLUME 81.3 fl (80.0-96.0); PLATELET COUNT, AUTOMATED 379 10^3/uL (150-450); RED BLOOD COUNT 4.17 10^6/uL (4.00-5.40); WHITE BLOOD COUNT 17.7 10^3/uL (4.0-10.0)
[2021-03-15] MEDS: HEPARIN SOD (PORCINE) 5000UNITS/ML 1ML VIAL/SYRINGE SQ SCH ×3 (06:06→22:00)
[2021-03-15 06:09] LABS: BLOOD UREA NITROGEN 27 MG/DL (7-18); CALCIUM LEVEL 8.2 MG/DL (8.5-10.1); CARBON DIOXIDE LEVEL 25 MEQ/L (21-32); CHLORIDE LEVEL 109 MEQ/L (98-107); CREATININE FOR GFR 0.69 MG/DL (0.55-1.30); GLOMERULAR FILTRATION RATE > 60.0 (>51); GLUCOSE, FASTING 177 MG/DL (70-100); POTASSIUM SERUM 5.1 MEQ/L (3.5-5.1); SODIUM LEVEL 138 MEQ/L (136-145)
[2021-03-15 06:48] LABS: ANISOCYTOSIS 1+; LYMPHOCYTES 6 % (16-44); METAMYELOCYTES 4 % (0-0); MONOCYTES 6 % (0-5); MYELOCYTES 1 % (0-0); NEUTROPHILS 83 % (28-66); PLATELET ESTIMATE NORMAL (NORMAL)
[2021-03-15] MEDS: BARICITINIB 2MG TABLET (OLUMIANT) FOR EUA PO SCH (08:46)
[2021-03-15] MEDS: dexameTHASONE 4 MG/ML 1ML VIAL (J1100 PER 1MG) IV SCH ×2 (08:46→22:19)
[2021-03-15] MEDS: guaiFENesin ER 600 MG TAB PO SCH ×2 (08:46→22:01)
[2021-03-15] MEDS: PANTOPRAZOLE 40MG TAB (PROTONIX) PO SCH ×2 (08:46→22:01)
[2021-03-15] MEDS: ASPIRIN 81MG ENTERIC TABLET PO SCH (08:46)
[2021-03-15] MEDS: DOXYCYCLINE HYCLATE 100 MG in D5W MINI-BAG PLUS 100 ML IV SCH (08:47)
[2021-03-15] MEDS: **NOTE PATIENT COMMENT** MISC XX SCH (09:00)
[2021-03-15] MEDS: cefTRIAXone SOD 1 GM in D5W MINI-BAG PLUS 50 ML IV SCH (10:30)
[2021-03-15] MEDS: LIDOCAINE 5% (LIDODERM) PATCH TD SCH ×2 (22:01→22:31)
[2021-03-16] VITALS (9 sets, daily range): BP systolic 136–167; BP diastolic 63–80; O2SAT 92–97
[2021-03-16] MEDS: COMBIVENT RESPIMAT 100-20MCG INHALER 4GM INH SCH ×4 (01:32→20:31)
[2021-03-16] MEDS: HEPARIN SOD (PORCINE) 5000UNITS/ML 1ML VIAL/SYRINGE SQ SCH ×3 (06:08→22:25)
[2021-03-16] MEDS: LevoFLOXacin 750 MG TABLET PO SCH (06:08)
[2021-03-16 06:28] LABS: HEMATOCRIT 34.9 % (36.0-47.0); HEMOGLOBIN 10.4 g/dl (12.0-15.5); MEAN CORPUSCULAR HEMOGLOBIN 25.1 pg (27.0-33.0); MEAN CORPUSCULAR HGB CONC 29.8 g/dl (32.0-36.5); MEAN CORPUSCULAR VOLUME 84.3 fl (80.0-96.0); PLATELET COUNT, AUTOMATED 424 10^3/uL (150-450); RED BLOOD COUNT 4.14 10^6/uL (4.00-5.40); WHITE BLOOD COUNT 21.2 10^3/uL (4.0-10.0)
[2021-03-16 06:45] LABS: PROTHROMBIN TIME 13.6 SECONDS (12.7-14.5)
[2021-03-16 06:46] LABS: PARTIAL THROMBOPLASTIN TIME 26.5 SECONDS (25.9-37.0)
[2021-03-16 06:58] LABS: ALT/SGPT 34 U/L (12-78); BILIRUBIN,DIRECT < 0.1 MG/DL (0.0-0.2); BILIRUBIN,TOTAL 0.3 MG/DL (0.2-1.0); BLOOD UREA NITROGEN 26 MG/DL (7-18); CALCIUM LEVEL 8.8 MG/DL (8.5-10.1); CARBON DIOXIDE LEVEL 24 MEQ/L (21-32); CHLORIDE LEVEL 110 MEQ/L (98-107); FERRITIN 241 NG/ML (8-252); GLOMERULAR FILTRATION RATE > 60.0 (>51); GLUCOSE, FASTING 164 MG/DL (70-100); LDH LACTATE DEHYDROGENASE 315 U/L (84-246); NT-PRO BNP 787 PG/ML (<125); POTASSIUM SERUM 5.1 MEQ/L (3.5-5.1); SODIUM LEVEL 141 MEQ/L (136-145); TOTAL PROTEIN 6.2 GM/DL (6.4-8.2)
[2021-03-16] MEDS: BARICITINIB 2MG TABLET (OLUMIANT) FOR EUA PO SCH (08:59)
[2021-03-16] MEDS: PANTOPRAZOLE 40MG TAB (PROTONIX) PO SCH ×2 (08:59→22:24)
[2021-03-16] MEDS: ASPIRIN 81MG ENTERIC TABLET PO SCH (08:59)
[2021-03-16] MEDS: dexameTHASONE 4 MG/ML 1ML VIAL (J1100 PER 1MG) IV SCH ×2 (08:59→22:34)
[2021-03-16] MEDS: guaiFENesin ER 600 MG TAB PO SCH ×2 (09:00→22:24)
[2021-03-16] MEDS: **NOTE PATIENT COMMENT** MISC XX SCH (09:00)
[2021-03-16] MEDS: LIDOCAINE 5% (LIDODERM) PATCH TD SCH (22:27)
[2021-03-17] VITALS (9 sets, daily range): BP systolic 123–154; BP diastolic 58–67; O2SAT 92–98
[2021-03-17] MEDS: COMBIVENT RESPIMAT 100-20MCG INHALER 4GM INH SCH ×4 (01:40→20:44)
[2021-03-17] MEDS: LevoFLOXacin 750 MG TABLET PO SCH (05:35)
[2021-03-17] MEDS: HEPARIN SOD (PORCINE) 5000UNITS/ML 1ML VIAL/SYRINGE SQ SCH ×3 (05:35→20:45)
[2021-03-17] MEDS ORDERED: LIDOCAINE 5% (LIDODERM) PATCH TD PRN (05:45)
[2021-03-17 07:34] LABS: HEMATOCRIT 35.7 % (36.0-47.0); HEMOGLOBIN 10.8 g/dl (12.0-15.5); MEAN CORPUSCULAR HEMOGLOBIN 25.2 pg (27.0-33.0); MEAN CORPUSCULAR HGB CONC 30.3 g/dl (32.0-36.5); MEAN CORPUSCULAR VOLUME 83.4 fl (80.0-96.0); PLATELET COUNT, AUTOMATED 427 10^3/uL (150-450); RED BLOOD COUNT 4.28 10^6/uL (4.00-5.40); WHITE BLOOD COUNT 22.1 10^3/uL (4.0-10.0)
[2021-03-17 07:55] LABS: BLOOD UREA NITROGEN 30 MG/DL (7-18); CALCIUM LEVEL 8.6 MG/DL (8.5-10.1); CARBON DIOXIDE LEVEL 26 MEQ/L (21-32); CHLORIDE LEVEL 108 MEQ/L (98-107); CREATININE FOR GFR 0.83 MG/DL (0.55-1.30); GLOMERULAR FILTRATION RATE > 60.0 (>51); GLUCOSE, FASTING 134 MG/DL (70-100); MAGNESIUM LEVEL 1.6 MG/DL (1.8-2.4); SODIUM LEVEL 140 MEQ/L (136-145)
[2021-03-17] MEDS: guaiFENesin ER 600 MG TAB PO SCH ×2 (08:52→20:44)
[2021-03-17] MEDS: BARICITINIB 2MG TABLET (OLUMIANT) FOR EUA PO SCH (08:52)
[2021-03-17] MEDS: ASPIRIN 81MG ENTERIC TABLET PO SCH (08:52)
[2021-03-17] MEDS: PANTOPRAZOLE 40MG TAB (PROTONIX) PO SCH ×2 (08:53→20:44)
[2021-03-17] MEDS: dexameTHASONE 4 MG/ML 1ML VIAL (J1100 PER 1MG) IV SCH ×2 (08:56→20:45)
[2021-03-17] MEDS ORDERED: MAG SULF 1GM/100ML (MAG RUN) 1 GM in IV 1 EA IV ONE (12:00)
[2021-03-17] MEDS: **NOTE PATIENT COMMENT** MISC XX SCH (21:00)
[2021-03-18] VITALS (8 sets, daily range): BP systolic 128–139; BP diastolic 60–75; O2SAT 92–95
[2021-03-18] MEDS: COMBIVENT RESPIMAT 100-20MCG INHALER 4GM INH SCH ×4 (01:00→20:32)
[2021-03-18] MEDS: LevoFLOXacin 750 MG TABLET PO SCH (06:02)
[2021-03-18] MEDS: HEPARIN SOD (PORCINE) 5000UNITS/ML 1ML VIAL/SYRINGE SQ SCH ×3 (06:02→22:22)
[2021-03-18] MEDS: PANTOPRAZOLE 40MG TAB (PROTONIX) PO SCH ×2 (08:24→20:29)
[2021-03-18] MEDS: dexameTHASONE 4 MG/ML 1ML VIAL (J1100 PER 1MG) IV SCH ×2 (08:24→20:31)
[2021-03-18] MEDS: ASPIRIN 81MG ENTERIC TABLET PO SCH (08:24)
[2021-03-18] MEDS: BARICITINIB 2MG TABLET (OLUMIANT) FOR EUA PO SCH (08:24)
[2021-03-18] MEDS: guaiFENesin ER 600 MG TAB PO SCH ×2 (08:25→20:29)
[2021-03-18 08:41] LABS: HEMATOCRIT 36.2 % (36.0-47.0); HEMOGLOBIN 10.9 g/dl (12.0-15.5); MEAN CORPUSCULAR HEMOGLOBIN 25.2 pg (27.0-33.0); MEAN CORPUSCULAR HGB CONC 30.1 g/dl (32.0-36.5); MEAN CORPUSCULAR VOLUME 83.8 fl (80.0-96.0); PLATELET COUNT, AUTOMATED 450 10^3/uL (150-450); RED BLOOD COUNT 4.32 10^6/uL (4.00-5.40); WHITE BLOOD COUNT 20.7 10^3/uL (4.0-10.0)
[2021-03-18 09:01] LABS: BLOOD UREA NITROGEN 30 MG/DL (7-18); CALCIUM LEVEL 8.9 MG/DL (8.5-10.1); CARBON DIOXIDE LEVEL 28 MEQ/L (21-32); CHLORIDE LEVEL 106 MEQ/L (98-107); CREATININE FOR GFR 0.75 MG/DL (0.55-1.30); GLOMERULAR FILTRATION RATE > 60.0 (>51); GLUCOSE, FASTING 136 MG/DL (70-100); SODIUM LEVEL 138 MEQ/L (136-145)
[2021-03-18] MEDS: **NOTE PATIENT COMMENT** MISC XX SCH (20:31)
[2021-03-19] VITALS (14 sets, daily range): BP systolic 135–153; BP diastolic 61–66; O2SAT 93–98
[2021-03-19] MEDS: COMBIVENT RESPIMAT 100-20MCG INHALER 4GM INH SCH ×4 (02:44→18:29)
[2021-03-19] MEDS: LevoFLOXacin 750 MG TABLET PO SCH (05:27)
[2021-03-19] MEDS: HEPARIN SOD (PORCINE) 5000UNITS/ML 1ML VIAL/SYRINGE SQ SCH (05:27)
[2021-03-19 07:27] LABS: HEMATOCRIT 36.7 % (36.0-47.0); HEMOGLOBIN 11.3 g/dl (12.0-15.5); MEAN CORPUSCULAR HEMOGLOBIN 25.5 pg (27.0-33.0); MEAN CORPUSCULAR HGB CONC 30.8 g/dl (32.0-36.5); MEAN CORPUSCULAR VOLUME 82.7 fl (80.0-96.0); PLATELET COUNT, AUTOMATED 422 10^3/uL (150-450); RED BLOOD COUNT 4.44 10^6/uL (4.00-5.40); WHITE BLOOD COUNT 18.4 10^3/uL (4.0-10.0)
[2021-03-19 07:45] LABS: BLOOD UREA NITROGEN 34 MG/DL (7-18); CALCIUM LEVEL 9.3 MG/DL (8.5-10.1); CARBON DIOXIDE LEVEL 26 MEQ/L (21-32); CHLORIDE LEVEL 106 MEQ/L (98-107); CREATININE FOR GFR 0.85 MG/DL (0.55-1.30); GLOMERULAR FILTRATION RATE > 60.0 (>51); GLUCOSE, FASTING 119 MG/DL (70-100); MAGNESIUM LEVEL 1.7 MG/DL (1.8-2.4); POTASSIUM SERUM 5.1 MEQ/L (3.5-5.1); SODIUM LEVEL 138 MEQ/L (136-145)
[2021-03-19] MEDS: BARICITINIB 2MG TABLET (OLUMIANT) FOR EUA PO SCH (09:18)
[2021-03-19] MEDS: dexameTHASONE 4 MG/ML 1ML VIAL (J1100 PER 1MG) IV SCH ×2 (09:18→20:23)
[2021-03-19] MEDS: guaiFENesin ER 600 MG TAB PO SCH ×2 (09:18→20:21)
[2021-03-19] MEDS: PANTOPRAZOLE 40MG TAB (PROTONIX) PO SCH ×2 (09:19→20:22)
[2021-03-20] VITALS: O2SAT 99
[2021-03-20] MEDS: COMBIVENT RESPIMAT 100-20MCG INHALER 4GM INH SCH ×3 (01:51→14:06)
[2021-03-20 04:00] VITALS: BP 141/71
[2021-03-20] MEDS ORDERED: PRED10TA2 PO (05:44)
[2021-03-20] MEDS ORDERED: PROV108A INH (05:44)
[2021-03-20] MEDS ORDERED: MUCI600T31 PO (05:44)
[2021-03-20] MEDS: LevoFLOXacin 750 MG TABLET PO SCH (05:59)
[2021-03-20 07:58] LABS: HEMATOCRIT 37.2 % (36.0-47.0); HEMOGLOBIN 11.4 g/dl (12.0-15.5); MEAN CORPUSCULAR HEMOGLOBIN 25.6 pg (27.0-33.0); MEAN CORPUSCULAR HGB CONC 30.6 g/dl (32.0-36.5); MEAN CORPUSCULAR VOLUME 83.6 fl (80.0-96.0); PLATELET COUNT, AUTOMATED 385 10^3/uL (150-450); RED BLOOD COUNT 4.45 10^6/uL (4.00-5.40); WHITE BLOOD COUNT 16.7 10^3/uL (4.0-10.0)
[2021-03-20 08:29] LABS: BLOOD UREA NITROGEN 33 MG/DL (7-18); CARBON DIOXIDE LEVEL 28 MEQ/L (21-32); CHLORIDE LEVEL 104 MEQ/L (98-107); CREATININE FOR GFR 0.78 MG/DL (0.55-1.30); GLOMERULAR FILTRATION RATE > 60.0 (>51); GLUCOSE, FASTING 121 MG/DL (70-100); POTASSIUM SERUM 5.4 MEQ/L (3.5-5.1); SODIUM LEVEL 138 MEQ/L (136-145)
[2021-03-20] MEDS: guaiFENesin ER 600 MG TAB PO SCH (09:16)
[2021-03-20 09:18] VITALS: BP 133/67; O2SAT 81
[2021-03-20] MEDS: PANTOPRAZOLE 40MG TAB (PROTONIX) PO SCH (09:18)
[2021-03-20] MEDS: BARICITINIB 2MG TABLET (OLUMIANT) FOR EUA PO SCH (09:19)
[2021-03-20 09:20] VITALS: O2SAT 95
[2021-03-20] MEDS: dexameTHASONE 4 MG/ML 1ML VIAL (J1100 PER 1MG) IV SCH (09:20)
[2021-03-20 14:00] VITALS: BP 145/79
[2021-04-06] MEDS ORDERED: ARNU1INH3 PO (18:08)
== END 2021-03-20 16:00 | disposition home health service (06) | DRG 137 ==
LOC: M ED 15:31 → M ED INP 20:43 → ENRESERV 03-11 06:24 → M ICU 03-11 08:10 → M 4MAIN 03-15 05:45
PROVIDERS: ADMIT Internal Medicine; ATTEND General Practice
PROC: 3E0333Z Introduction of Anti-inflammatory into Peripheral Vein, Percutaneous Approach (ICD-10-PCS; principal; 2021-03-10)
PROC: XW033E5 Introduction of Remdesivir Anti-infective into Peripheral Vein, Percutaneous Approach, New Technology Group 5 (ICD-10-PCS; 2021-03-10)
DX: U07.1 COVID-19 (principal); J96.01 Acute respiratory failure with hypoxia; J12.82 Pneumonia due to coronavirus disease 2019; I12.9 Hypertensive chronic kidney disease with stage 1 through stage 4 chronic kidney disease, or unspecified chronic kidney disease; E66.9 Obesity, unspecified; Z90.49 Acquired absence of other specified parts of digestive tract; N17.9 Acute kidney failure, unspecified; N18.9 Chronic kidney disease, unspecified; Z68.42 Body mass index [BMI] 45.0-49.9, adult; E83.42 Hypomagnesemia; D72.829 Elevated white blood cell count, unspecified

== ENCOUNTER 2021-04-03 12:03 | Inpatient (IN) | payer BC ==
[~2021-04-03] VITALS: Ht 165.1 cm; Wt 135.2 kg
[~2021-04-03 12:03] MED LIST changes: -LOSA25TA13; +LOSA25TA14; +MUCI600T31 PO; +PRED10TA2 PO; +PROV108A INH
--- OUTSIDE RECORDS SUMMARY | 2021-04-03 12:08 | CCD ---
Author Author [facility] Organization [facility] Address Unknown Phone Unavailable Care Team Providers Care Border Patrol Agent Name Role Phone MARLI, Ada GARZA Unavailable Unavailable LETTIERE, Ada GARZA Unavailable Unavailable LETTIERE, Ada GARZA Unavailable Unavailable LETTIERE, Ada GARZA Unavailable Unavailable LETTIERE, Ada GARZA Unavailable Unavailable LETTIERE, Ada GARZA Unavailable Unavailable LETTIERE, Ada GARZA Unavailable Unavailable LETTIERE, Ada GARZA Unavailable Unavailable LETTIERE, Ada GARZA Unavailable Unavailable LETTIERE, Ada GARZA Unavailable Unavailable LETTIERE, Ada GARZA Unavailable Unavailable LETTIERE, Ada GARZA Unavailable Unavailable LETTIERE, Ada GARZA Unavailable Unavailable LETTIERE, Ada GARZA Unavailable Unavailable LETTIERE, Ada GARZA Unavailable Unavailable LETTIERE, Ada GARZA Unavailable Unavailable LETTIERE, Ada GARZA Unavailable Unavailable LETTIERE, Ada GARZA Unavailable Unavailable LETTIERE, A PARKER PA Unavailable Unavailable LETTIERE, A PARKER PA Unavailable Unavailable LETTIERE, A PARKER PA Unavailable Unavailable LETTIERE, A PARKER PA Unavailable Unavailable LETTIERE, A PARKER PA Unavailable Unavailable LETTIERE, A PARKER PA Unavailable Unavailable LETTIERE, A PARKER PA Unavailable Unavailable LETTIERE, A PARKER PA Unavailable Unavailable LETTIERE, A PARKER PA Unavailable Unavailable LETTIERE, A PARKER PA Unavailable Unavailable LETTIERE, A PARKER PA Unavailable Unavailable LETTIERE, A PARKER PA Unavailable Unavailable LETTIERE, A PARKER PA Unavailable Unavailable RING, K BEN PA Unavailable Unavailable RING, K BEN PA Unavailable Unavailable RING, K BEN PA Unavailable Unavailable RING, K BEN PA Unavailable Unavailable RING, K BEN PA Unavailable Unavailable RING, K BEN PA Unavailable Unavailable RING, K BEN PA Unavailable Unavailable RING, K BEN PA Unavailable Unavailable RING, K BEN PA Unavailable Unavailable RING, K BEN PA Unavailable Unavailable RING, K BEN PA Unavailable Unavailable RING, K BEN PA Unavailable Unavailable RING, K BEN PA Unavailable Unavailable RING, K BEN PA Unavailable Unavailable RING, K BEN PA Unavailable Unavailable RING, K BEN PA Unavailable Unavailable RING, K BEN PA Unavailable Unavailable RING, K BEN PA Unavailable Unavailable RING, K BEN PA Unavailable Unavailable RING, K BEN PA Unavailable Unavailable RING, K BEN PA Unavailable Unavailable RING, K BEN PA Unavailable Unavailable RING, K BEN PA Unavailable Unavailable Re-disclosure Warning The records that you are about to access may contain information from federally-assisted alcohol or drug abuse programs. If such information is present, then the following federally mandated warning applies: This information has been disclosed to you from records protected by federal confidentiality rules (42 CFR part 2). The federal rules prohibit you from making any further disclosure of this information unless further disclosure is expressly permitted by the written consent of the person to whom it pertains or as otherwise permitted by 42 CFR part 2. A general authorization for the release of medical or other information is NOT sufficient for this purpose. The Federal rules restrict any use of the information to criminally investigate or prosecute any alcohol or drug abuse patient.The records that you are about to access may contain highly sensitive health information, the redisclosure of which is protected by Article 27-F of the [place] State Public Health law. If you continue you may have access to information: Regarding HIV / AIDS; Provided by facilities licensed or operated by the [facility] Office of Mental Health; or Provided by the [facility] Office for People With Developmental Disabilities. If such information is present, then the following [facility] mandated warning applies: This information has been disclosed to you from confidential records which are protected by state law. State law prohibits you from making any further disclosure of this information without the specific written consent of the person to whom it pertains, or as otherwise permitted by law. Any unauthorized further disclosure in violation of state law may result in a fine or mcfp sentence or both. A general authorization for the release of medical or other information is NOT sufficient authorization for further disc losure. Family History Family Member Name Family Member Gender Family Member Status Date o f Status Description Data Source(s) Unknown Unknown Problem [facility]ENT ([facility], [facility]) Encounters Encounter Providers Location Date Indications Data Source(s ) Outpatient Attender: PARKER Wong Prim neelam 01/31/2021 01:45:00 PM EDT [facility] ([facility]) Outpatient Attender: BEN Wong Primary 09/14/2020 12:30:00 PM EDT [facility] ([facility], [facility]) Medications Medication Brand Name Start Date Product Form Dose Route Admi nistrative Instructions Pharmacy Instructions Status Indications Reaction Description Data Source(s) Amoxicillin 875 MG Oral Tablet Amoxicillin 01/31/2021 12:00:00 AM EDT active MEDENT ([facility], [facility]) Amoxicillin 875 MG / Clavulanate 125 MG Oral Tablet Am oxicillin/Clavulanate Potassium 09/14/2020 12:00:00 AM EDT ORAL completed [facility] ([facility], [facility]) Losartan Potassium 25 MG Oral Tablet Losartan Potassium 12:00:00 AM EDT ORAL active MEDENT ([facility], [facility]) No Active Medications 09/14/2020 12:00:00 AM EDT completed [facility] ([facility], [facility]) Insurance Providers Payer name Policy type / Coverage type Policy ID Covered democrat ID Covered democrat's relationship to engel Policy Engel Plan Information [employer] [id number] SP U [id number] Managed Care [place] P [id number] S [id number] Managed [place] P [id number] S [id number] Medicaid S [id number] S [id number] BCBS/[employer] Commercial [id number] Self [id number] BCBS/[employer] [id number] Self [id number] [place]/307 [id number] SP [id number] [place]/307 [id number] SP [id number] [place] MED[place] [id number] SP [id number] [employer] BCBS B [id number] S [id number] [place] P[place] 302/307 [id number] SP [id number] [place] 306/806 [id number] SP [id number] [place] 306/806 [id number] SP [id number] Problems, Conditions, and Diagnoses No Information Surgeries/Procedures Procedure Description Date Indications Data Source(s) OFFICE OUTPATIENT VISIT 15 MINUTES 01/31/2021 12:00:00 AM EDT [facility] ([facility], [facility]) OFFICE OUTPATIENT VISIT 25 MINUTES 09/14/2020 12:00:00 AM EDT [facility] ([facility], [facility]) Results ID Date Data Source [id number] 03/10/2021 06:41:00 PM EST [facility] Name Value Range Interpretation Code Description Data Hortencia rce(s) Supporting Document(s) Respiratory pathogens identified [Type] in Nasopharynx by Probe and target amplification method SARS-CoV-2 (COVID 19) [facility] This lab was ordered by [facility] a nd reported by [facility]. ID Date Data Source [id number] 01/31/2021 12:00:00 AM EDT [facility] Name Value Range Interpretation Code Description Data Hortencia rce(s) Supporting Document(s) SARS-CoV2 Rapid Antigen Negative [facility] This lab was ordered by [facility] and reported by [facility]. ID Date Data Source [id number] 09/14/2020 01:29:00 PM EDT [facility] Name Value Range Interpretation Code Description Data Hortencia rce(s) Supporting Document(s) Bacteria identified in Urine by Culture Laboratory test result [facility] ([facility]) FULL REPORT IN LAB NOTES ([facility] and [facility] ). NO GROWTH CLINICAL SIGNIFICANCE 2 OR MORE ORGANISMS ID Date Data Source [id number] 09/14/2020 12:00:00 AM EDT [facility] Name Value Range Interpretation Code Description Data Hortencia rce(s) Supporting Document(s) SARS-CoV2 Rapid Antigen Negative [facility] This lab was reported by [facility]. Procedure Social History Code Duration Value Status Description Data Source(s ) Smoking 01/31/2021 12:00:00 AM EDT Patient is a former smoker completed Patient is a former smoker [facility] ([facility]) Vital Signs ID Date Data Source UNK Name Value Range Interpretation Code Description Data Source(s) Systolic blood pressure 160 mm[Hg] 160 mm[Hg] [facility] Diastolic blood pressure 93 mm[Hg] 93 mm[Hg] [facility] ([facility]) Body height 64 [in_i] 64 [in_i] [facility] ([facility]) 5'4" Body mass index (BMI) [Ratio] 50.8 kg/m2 50.8 k g/m2 [facility] ([facility]) Heart rate 89 /min 89 /min [facility] ([facility]) Respiratory rate 19 /min 19 /min [facility] ( [facility]) Oxygen saturation in Arterial blood by Pulse oximetry 98 % 98 % [facility] ([facility]) Body temperature 98.7 [degF] 98.7 [degF] [facility] ([facility], [facility]) Body weight 296.00 [lb_av] 296.00 [lb_av] MEDEN T ([facility], [facility]) Body temperature 99.1 [degF] 99.1 [degF] [facility] ([facility], [facility]) Respiratory rate 20 /min 20 /min [facility]) Oxygen saturation in Arterial blood by Pulse oximetry 97 % 97 % [facility] ([facility], [facility]) Systolic blood pressure 148 mm[Hg] 148 mm[Hg] EDENT ([facility], [facility]) Diastolic blood pressure 100 mm[Hg] 100 mm[Hg] [facility], [facility]) Heart rate 89 /min 89 /min [facility] ([facility], [facility]) Body height 64 [in_i] 64 [in_i] [facility] ([facility], [facility]) 5'4"
[2021-04-03 13:07] LABS: VENOUS BASE EXCESS 1.2 (-2.0-2.0); VENOUS O2 SATURATION 89.4 % (60.0-80.0); VENOUS PARTIAL PRESSURE CO2 47.4 mmHg (38.0-50.0); VENOUS PH 7.373 UNITS (7.330-7.430); VENOUS STANDARD HCO3 25.4 MEQ/L; VENOUS TOTAL CO2 28.4 MEQ/L (24.0-28.0)
--- OUTSIDE RECORDS SUMMARY | 2021-04-03 13:07 | CCD ---
Author Author [facility] Organization [facility] Address Unknown Phone Unavailable Care Team Providers Care Inspector Canned Food Reconditioning Name Role Phone MARLI, Ada GARZA Unavailable [...] is protected by Article 27-F of the [place] State Public Health law. If you continue you may have access to information: Regarding HIV / AIDS; Provided by facilities licensed or operated by the [facility] Office of Mental Health; or Provided by the [facility] Office for People With Developmental Disabilities. If such information is present, then the following [facility] mandated warning applies: This information has been [...] law may result in a fine or penitentiary sentence or both. A general authorization for the release of medical or other information is NOT sufficient authorization for further disc losure. Family History Family Member Name Family Member Gender Family Member Status Date o f Status Description Data Source(s) Unknown Unknown Problem [facility] ([facility], [facility]) Encounters Encounter Providers Location Date Indications Data Source(s ) Outpatient Attender: PARKER Wong Prim neelam 01/31/2021 01:45:00 PM EDT [facility] ([facility], [facility]) Outpatient Attender: BEN Wong Primary 09/14/2020 12:30:00 PM EDT [facility] ([facility], [facility]) Medications Medication Brand Name Start Date Product Form Dose Route Admi nistrative Instructions Pharmacy Instructions Status Indications Reaction Description Data Source(s) Amoxicillin 875 MG Oral Tablet Amoxicillin 01/31/2021 12:00:00 AM EDT active [facility] ([facility], [facility]) Amoxicillin 875 MG / Clavulanate 125 MG Oral Tablet Am oxicillin/Clavulanate Potassium 09/14/2020 12:00:00 AM EDT ORAL completed [facility] ([facility], [facility]) Losartan Potassium 25 MG Oral Tablet Losartan Potassium 12:00:00 AM EDT ORAL active [facility] ([facility], [facility]) No Active Medications 09/14/2020 12:00:00 AM EDT completed [facility] ([facility] [facility], [facility]) Insurance Providers Payer name Policy type / Coverage type Policy ID Covered alliance party ID Covered alliance party's relationship to engel Policy Engel Plan Information [employer] [id number] SP U [id number] Managed Care [place] P [id number] S [id number] Managed Care [place] P [id number] S [id number] Medicaid S [id number] S [id number] BCBS/[employer] Commercial [id number] Self [id number] BCBS/[employer] Commercial [id number] Self [id number] [place]/307 [id number] SP [id number] [place] 302/307 [id number] SP [id number] [place] MED[place]ARE [id number] SP [id number] [employer]CELLUS BCBS B [id number] S [id number] BCBS [place] PPO 302/307 [id number] SP [id number] [place] 306/806 [id number] SP [id number] [place] 306/806 [id number] SP [id number] Problems, Conditions, and Diagnoses No Information Surgeries/Procedures Procedure Description Date Indications Data Source(s) OFFICE OUTPATIENT VISIT 15 MINUTES 01/31/2021 12:00:00 AM EDT [facility] ([facility], [facility]) OFFICE OUTPATIENT VISIT 25 MINUTES 09/14/2020 12:00:00 AM EDT [facility] ([facility], [facility]) Results ID Date Data Source [id number] 03/10/2021 06:41:00 PM EST [facility] Name Value Range Interpretation Code Description Data Hortencia rce(s) Supporting Document(s) Respiratory pathogens identified [Type] in Nasopharynx by Probe and target amplification method SARS-CoV-2 (COVID 19) [facility] This lab was ordered by [facility] a nd reported by [facility]. ID Date Data Source [id number] 01/31/2021 12:00:00 AM EDT [facility] Name Value Range Interpretation Code Description Data Hortencia rce(s) Supporting Document(s) SARS-CoV2 Rapid Antigen Negative [facility] This lab was ordered by [facility] and reported by [facility]. ID Date Data Source [id number] 09/14/2020 01:29:00 PM EDT [facility] Name Value Range Interpretation Code Description Data Hortencia rce(s) Supporting Document(s) Bacteria identified in Urine by Culture Laboratory test result [facility] ([facility]) FULL REPORT IN LAB NOTES [facility] NO GROWTH CLINICAL SIGNIFICANCE 2 OR MORE ORGANISMS ID Date Data Source [id number] 09/14/2020 12:00:00 AM [facility] Name Value Range Interpretation Code Description Data Hortencia rce(s) Supporting Document(s) SARS-CoV2 Rapid Antigen Negative [facility] This lab was reported by [facility]. Procedure Social History Code Duration Value Status Description Data Source(s ) Smoking 01/31/2021 12:00:00 AM EDT Patient is a former smoker completed Patient is a former smoker [facility] ([facility]) Vital Signs ID Date Data Source UNK Name Value Range Interpretation Code Description Data Source(s) Heart rate 89 /min 89 /min [facility] ([facility]) Systolic blood pressure 160 mm[Hg] 160 mm[Hg] [facility] Respiratory rate 19 /min 19 /min [facility] ( [facility]) Diastolic blood pressure 93 mm[Hg] 93 mm[Hg] [facility] ([facility]) Body height 64 [in_i] 64 [in_i] [facility] ([facility]) 5'4" Body mass index (BMI) [Ratio] 50.8 kg/m2 50.8 k g/m2 [facility] ([facility]) Oxygen saturation in Arterial blood by Pulse oximetry 98 % 98 % [facility] ([facility]) Body temperature 98.7 [degF] 98.7 [degF] [facility] ([facility], [facility]) Body weight 296.00 [lb_av] 296.00 [lb_av] MEDEN T ([facility], [facility]) Body temperature 99.1 [degF] 99.1 [degF] [facility] ([facility], [facility]) Systolic blood pressure 148 mm[Hg] 148 mm[Hg] EDENT ([place] [facility], [facility]) Diastolic blood pressure 100 mm[Hg] 100 mm[Hg] [facility] ([facility], [facility]) Heart rate 89 /min 89 /min [facility] ([facility], [facility]) Respiratory rate 20 /min 20 /min [facility] ( [facility], [facility]) Oxygen saturation in Arterial blood by Pulse oximetry 97 % 97 % [facility] ([facility], [facility]) Body height 64 [in_i] 64 [in_i] [facility] ([facility], [facility]) 5'4"
[2021-04-03 13:11] LABS: BASO % 0.3 % (0.0-1.0); EOS # 0.3 10^3/uL (0.0-0.5); EOS % 4.4 % (0.0-3.0); HEMATOCRIT 34.5 % (36.0-47.0); HEMOGLOBIN 10.6 g/dl (12.0-15.5); LYMPH # 0.9 10^3/uL (1.5-5.0); LYMPH % 13.1 % (24.0-44.0); MEAN CORPUSCULAR HEMOGLOBIN 25.7 pg (27.0-33.0); MEAN CORPUSCULAR HGB CONC 30.7 g/dl (32.0-36.5); MEAN CORPUSCULAR VOLUME 83.5 fl (80.0-96.0); MONO # 0.5 10^3/uL (0.0-0.8); MONO % 6.3 % (2.0-8.0); NEUTROPHILS # 5.1 10^3/uL (1.5-8.5); NEUTROPHILS % 72.1 % (36.0-66.0); PLATELET COUNT, AUTOMATED 129 10^3/uL (150-450); RED BLOOD COUNT 4.13 10^6/uL (4.00-5.40); WHITE BLOOD COUNT 7.1 10^3/uL (4.0-10.0)
--- NOTE | 2021-04-03 13:29 | REP ---
INDICATION: DYSPNEA/COUGH COMPARISON: 03/10/2021 TECHNIQUE: Portable AP view of the chest FINDINGS: Examination is limited by portable technique and underpenetration. Mediastinum and cardiac silhouette suggest stable cardiomegaly. The lung troy demonstrate diffuse bilateral airspace disease again consistent with COVID-19 pulmonary disease versus multifocal pneumonia. No obvious effusion. No pneumothorax. IMPRESSION: Diffuse bilateral infiltrates highly suspicious for COVID-19 pulmonary disease. Differential diagnosis includes multifocal pneumonia. <Electronically signed by Kevin Coe > 04/03/21 [id number]
[2021-04-03] MEDS ORDERED: COMBIVENT RESPIMAT 100-20MCG INHALER 4GM INH PRN (13:40)
[2021-04-03 13:48] LABS: ALBUMIN 2.8 GM/DL (3.2-5.2); BILIRUBIN,DIRECT 0.2 MG/DL (0.0-0.2); BILIRUBIN,TOTAL 0.5 MG/DL (0.2-1.0); CALCIUM LEVEL 8.9 MG/DL (8.5-10.1); CREATININE FOR GFR 1.03 MG/DL (0.55-1.30); GLOMERULAR FILTRATION RATE 58.4 (>51); POTASSIUM SERUM 4.6 MEQ/L (3.5-5.1); THYROID STIMULATING HORMONE 1.1 uIU/ML (0.358-3.740); TOTAL PROTEIN 6.6 GM/DL (6.4-8.2)
[2021-04-03] MEDS ORDERED: ISOVUE-370 76% 100ML VIAL As Ordered ONE (14:04)
[2021-04-03 14:31] VITALS: O2SAT 97
--- NOTE | 2021-04-03 15:00 | REP ---
INDICATION: sob COMPARISON: None. TECHNIQUE: Axial contrast enhanced images from the thoracic inlet to the upper abdomen using pulmonary embolus technique with multiplanar re-formations. 75 ml Isovue 370 intravenous contrast material administered without complication. This CT examination was performed using the following dose reduction techniques: Automated exposure control, adjustment of mA and/or kv according to the patient's size, and use of iterative reconstruction technique. FINDINGS: Satisfactory enhancement of the pulmonary vasculature is achieved and no filling defects are identified to suggest pulmonary embolus. Further evaluation of the mediastinum demonstrates normal thoracic aorta, heart and pericardium. The bilateral lung troy demonstrate chronic emphysematous changes with superimposed scattered ground-glass opacities and early infiltrates. No effusion. No pneumothorax. Tracheobronchial tree is patent. Mild reactive mediastinal adenopathy noted IMPRESSION: No evidence for pulmonary embolus. Multifocal infiltrates. <Electronically signed by Kevin Coe > 04/03/21 [id number]
[2021-04-03] MEDS ORDERED: cefTRIAXone SOD 1 GM in D5W MINI-BAG PLUS 50 ML IV ONE (15:20)
[2021-04-03] MEDS ORDERED: AZITHROMYCIN INJ 500 MG, VIAL MATE ADAPTER 1 EACH in NS 250 ML IV ONE (15:20)
[2021-04-03] MEDS ORDERED: FERR1TAB8 PO (16:10)
[2021-04-03] MEDS ORDERED: D31000TA2 PO (16:10)
[2021-04-03] MEDS ORDERED: PROV108A INH (16:10)
[2021-04-03] MEDS ORDERED: HOME MED LIST COMPLETE! XX SCH (16:10)
[2021-04-03] MEDS ORDERED: MUCI1TAB16 PO (16:10)
[2021-04-03] MEDS ORDERED: VIAL MATE ADAPTER XX ONE (17:03)
[2021-04-03] MEDS ORDERED: MOM 30ML SUSPENSION UDC PO PRN (17:10)
[2021-04-03] MEDS ORDERED: ACETAMINOPHEN TAB 650MG DOSE (2X325MG) PO PRN (17:10)
[2021-04-03] MEDS ORDERED: guaiFENesin ER 600 MG TAB PO PRN (17:10)
[2021-04-03] MEDS ORDERED: ALBUTEROL 90 MCG/ACT 8GM HFA INHALER INH PRN (17:10)
--- OUTSIDE RECORDS SUMMARY | 2021-04-03 17:58 | CCD ---
Author Author [facility] Organization [facility] Address Unknown Phone Unavailable Care Team Providers Care Sales Planning Manager Name Role Phone MARLI, Ada GARZA Unavailable [...] is protected by Article 27-F of the [place] State Public Health law. If you continue you may have access to information: Regarding HIV / AIDS; Provided by facilities licensed or operated by the [facility] Office of Mental Health; or Provided by the [facility] Office for People With Developmental Disabilities. If such information is present, then the following [facility] mandated warning applies: This information [...] law may result in a fine or snf sentence or both. A general authorization for the release of medical or other information is NOT sufficient authorization for further disc losure. Family History Family Member Name Family Member Gender Family Member Status Date o f Status Description Data Source(s) Unknown Unknown Problem [facility] ([facility], [facility]) Encounters Encounter Providers Location Date Indications Data Source(s ) Outpatient Attender: PARKER Wong Prim neelam 01/31/2021 01:45:00 PM EDT [facility] ([facility], [facility]) Outpatient Attender: BEN Wong Primary 09/14/2020 12:30:00 PM EDT [facility] ([facility], [facility]) Medications Medication Brand Name Start Date Product Form Dose Route Admi nistrative Instructions Pharmacy Instructions Status Indications Reaction Description Data Source(s) Amoxicillin 875 MG Oral Tablet Amoxicillin 01/31/2021 12:00:00 AM EDT active [facility] ([facility], [facility]) Amoxicillin 875 MG / Clavulanate 125 MG Oral Tablet Am oxicillin/Clavulanate Potassium 09/14/2020 12:00:00 AM EDT ORAL completed [facility] ([facility], [facility]) Losartan Potassium 25 MG Oral Tablet Losartan Potassium 12:00:00 AM EDT ORAL active [facility] ([facility], [facility]) No Active Medications 09/14/2020 12:00:00 AM EDT completed [facility] ([facility], [facility]) Insurance Providers Payer name Policy type / Coverage type Policy ID Covered republican ID Covered republican's relationship to engel Policy Engel Plan Information [employer] [id number] SP U [id number] Managed Care [place] P [id number] S [id number] Managed Care [place] P [id number] S [id number] Medicaid S [id number] [employer] [id number] Self [id number] [employer] [id number] Self [id number] [place] 302/307 [id number] SP [id number] [place] 302/307 [id number] SP [id number] [place] MEDICARE [id number] SP [id number] [employer]BS B [id number] S [id number] [place] PPO 302/307 [id number] SP [id number] [place] 306/806 [id number] SP [id number] [place] 306/806 [id number] SP [id number] Problems, Conditions, and Diagnoses No Information Surgeries/Procedures Procedure Description Date Indications Data Source(s) OFFICE OUTPATIENT VISIT 15 MINUTES 01/31/2021 12:00:00 AM EDT [facility] ([facility], [facility]) OFFICE OUTPATIENT VISIT 25 MINUTES 09/14/2020 12:00:00 AM EDT [facility] ([facility], [facility]) Results ID Date Data Source [id number] 03/10/2021 06:41:00 PM EST [facility] Name Value Range Interpretation Code Description Data Hortencia rce(s) Supporting Document(s) Respiratory pathogens identified [Type] in Nasopharynx by Probe and target amplification method SARS-CoV-2 (COVID 19) [facility] This lab was ordered by [facility] a nd reported by [facility]. ID Date Data Source [id number] 01/31/2021 12:00:00 AM EDT [facility] Name Value Range Interpretation Code Description Data Hortencia rce(s) Supporting Document(s) SARS-CoV2 Rapid Antigen Negative [facility] This lab was ordered by [facility] and reported by [facility]. ID Date Data Source [id number] 09/14/2020 01:29:00 PM EDT [facility] Name Value Range Interpretation Code Description Data Hortencia rce(s) Supporting Document(s) Bacteria identified in Urine by Culture Laboratory test result [facility] ([facility]) FULL REPORT IN LAB NOTES ([facility] NO GROWTH CLINICAL SIGNIFICANCE 2 OR MORE ORGANISMS ID Date Data Source [id number] 09/14/2020 12:00:00 AM EDT [facility] Name Value Range Interpretation Code Description Data Hortencia rce(s) Supporting Document(s) SARS-CoV2 Rapid Antigen Negative [facility] This lab was reported by [facility]. Procedure Social History Code Duration Value Status Description Data Source(s ) Smoking 01/31/2021 12:00:00 AM EDT Patient is a former smoker completed Patient is a former smoker [facility] ([facility]) Vital Signs ID Date Data Source UNK Name Value Range Interpretation Code Description Data Source(s) Systolic blood pressure 160 mm[Hg] 160 mm[Hg] [facility] Heart rate 89 /min 89 /min [facility] ([facility]) Diastolic blood pressure 93 mm[Hg] 93 mm[Hg] [facility] ([facility]) Respiratory rate 19 /min 19 /min [facility] ( [facility]) Oxygen saturation in Arterial blood by Pulse oximetry 98 % 98 % [facility] ([facility]) Body temperature 98.7 [degF] 98.7 [degF] [facility] ([facility]) Body weight 296.00 [lb_av] 296.00 [lb_av] [facility] Body height 64 [in_i] 64 [in_i] [facility] ([facility], [facility]) 5'4" Body mass index (BMI) [Ratio] 50.8 kg/m2 50.8 k g/m2 [facility] ([facility], [facility]) Systolic blood pressure 148 mm[Hg] 148 mm[Hg] [facility], [facility]) Diastolic blood pressure 100 mm[Hg] 100 mm[Hg] [facility] ([facility], [facility]) Heart rate 89 /min 89 /min [facility] ([facility], [facility]) Body temperature 99.1 [degF] 99.1 [degF] [facility] ([facility], [facility]) Body height 64 [in_i] 64 [in_i] [facility] ([facility], [facility]) 5'4" Respiratory rate 20 /min 20 /min [facility] ( [facility], [facility]) Oxygen saturation in Arterial blood by Pulse oximetry 97 % 97 % [facility] ([facility], [facility])
--- NOTE | 2021-04-03 18:29 | ECGEPIP ---
[facility] - ED Test Date: 2021-04-03 Pat Name: ANGELY HOYOS Department: Room: - Gender: Female Individualized Education Plan Aide: ED : 1960 Requested By: Debbie Coles Order Number: [id number] Reading MD: Donte Mcclure Measurements Intervals [place] Rate: 95 P: 62 [place]: 142 QRS: 5 QRSD: 72 T: 33 QT: 326 QTc: 409 Interpretive Statements Normal sinus rhythm Inferior infarct , age undetermined Similar to tracing done 03-10-21 Electronically Signed on 04-03-2021 18:29:41 EST by Donte Mcclure
--- NOTE | 2021-04-03 19:17 | HPEPDOC ---
[facility] Medical History & Physical Date of Admission Apr 03, 2021 Date of Service: Apr 03, 2021 Attending Physician: SAMANTHA ZUNIGA MD History and Physical CHIEF COMPLAINT: worsening SOB, worsening acute on subacute hypoxemia, fever, increased yellow sputum and cough HISTORY OF PRESENT ILLNESS: 60yo W with significant history of recent covid-19 PNA with acute hypoxemic respiratory failure for which she was discharged home on 3L NC, allergies, chronic sinusitis, obesity and hypertension who reports recent interval improvement and had been doing better with each day, but 2-3days ago she re- developed fever, chills, a productive cough, worsening SOB and noted worsening hypoxemia with ambulatory saturations on 3L reportedly in the 60% and therefore returns to the ED. She denied monika chest pain with deep breathing or substernal, palpitations, N/V/D, dysuria, hematuria, blood in sputum or stool. In the ED, she is afebrile and is currently on 4L and otherwise hemodynamically stable. Workup revealed a WBC of 7.1, hgb 10.6, platelets 129, na 139, K 4.6, Cr 1.03, lactic acid 1.9, TSH 1.1, ABG showed pure hypoxemia with pH 7.37/pCO47/pO260 on 4L NC, CXR continues to show diffuse bilateral infiltrates while CTA showed no PE, with diffuse GGOs, no effusions or pneumothorax. Respi ratory panel was negative for covid-19 this time, but was positive for human metapneumovirus. Given the fever, sputum and worsening hypoxemia i will admit for viral pneumonia with new infection of human metapneumovirus while recovering from covid-19 and for now will also empirically cover for potential CAP with ceftriaxone/doxy given fever, increased sputum and worsening hypoxemia and will follow up procalcitonin. Allergies Coded Allergies: No Known Allergies (Verified , 10/26/02) Past Medical History Recent covid-19 PNA with acute hypoxemic respiratory failure for which she is still on 3L NC Chronic sinusitis hypertensionpatient reports diet and exercise controlled and no longer on medication obesity Surgical History Tubal ligation cholecystectomy Social History Smoker: Denies Alcohol: Denies Drugs: denies REVIEW OF SYSTEMS: All noted pertinent positives were noted in the HPI, all other elements of the 10 point ROS were otherwise negative. PHYSICAL EXAMINATION: VITAL SIGNS: see below GENERAL APPEARANCE: NAD, morbidly obese HEENT: NCAT, EOMI, MMM CARDIOVASCULAR: RRR, no m/r/g LUNGS: Diminished throughout, no wheezing, rhonchi or crackling, on 4l NC, breathing comfortably ABDOMEN: Obese, normoactive sounds, soft, NTND EXTREMITIES: WWP, no LE edema NEUROLOGICAL: CN3-12 intact, grossly nonfocal examination PSYCHIATRIC: AOx3 LABORATORY DATA: Reviewe above. See below. IMAGING: Reviewed above. Otherwise please see the imaging section. MICROBIOLOGY: Please see below. ASSESSMENT: 60yo W with significant history of recent covid-19 PNA with acute hypoxemic resp iratory failure for which she was discharged home on 3L NC, allergies, chronic sinusitis, obesity and hypertension who reports recent interval improvement and had been doing better with each day, but 2-3days ago she re-developed fever, chills, a productive cough, worsening SOB and noted worsening hypoxemia with ambulatory saturations on 3L reportedly in the 60% and therefore returned to the ED and now getting admitted with viral pneumonia with new infection of human metapneumovirus while recovering from covid-19 and for now will also empirically cover for potential CAP with ceftriaxone/doxy given fever, increased sputum and worsening hypoxemia and will follow up procalcitonin. PLAN: Viral PNA: new human metapneumovirus infection -still recovering from covid-19 -continue albuterol mdi -supplemental O2 to goal >90% -mucinex -incentive spirometry -empiric abx until procalcitonin has resulted -Acetaminophen for fever PRN -No steroids at this time, low threshold if hypoxemia becomes severe. Currently without wheezing, on 4L Potential CAP: -Although she has known viral PNA, will empirically cover for now with ceftriaxone/doxy -check MRSA PCR -f/u BCx -urine strep, legionella and mycoplasma DVT ppx: TEDs and SCDs, lovenox Dispo: medsurg inpatient Vital Signs Vital Signs Date Time Temp Pulse Resp B/P (MAP) Pulse Ox O2 Delivery O2 Flow Rate FiO2 04/03/21 14:31 97 Nasal Cannula 4.0 Laboratory Data Labs 24H Laboratory Tests 2 04/03/21 12:32: Procalcitonin <0.05 04/03/21 12:33: Immature Granulocyte % (Auto) 3.8H, Neutrophils (%) (Auto) 72.1H, Lymphocytes (%) (Auto) 13.1L, Monocytes (%) (Auto) 6.3, Eosinophils (%) (Auto) 4.4H, Basophils (%) (Auto) 0.3, Neutrophils # (Auto) 5.1, Lymphocytes # (Auto) 0.9L, Monocytes # (Auto) 0.5, Eosinophils # (Auto) 0.3, Basophils # (Auto) 0.0, Nucleated Red Blood Cells % (auto) 0.0, Blood Gas Bicarbonate Standard 25.4, Venous Blood pH 7.373, Venous Blood Partial Pressure CO2 47.4, Venous Blood Partial Pressure O2 60.0H, Venous Blood Total Carbon Dioxide 28.4H, Venous Blood HCO3 27.0, Venous Blood Oxygen Saturation 89.4H, Venous Blood Base Excess 1.2, Anion Gap 8, Glomerular Filtration Rate 58.4, Calcium Level 8.9, Total Bilirubin 0.5, Direct Bilirubin 0.2, Aspartate Amino Transf (AST/SGOT) 19, Alanine Aminotransferase (ALT/SGPT) 29, Alkaline Phosphatase 85, VK-Wsv-K-Type Natriuretic Peptide 100, Total Protein 6.6, Albumin 2.8L, Albumin/Globulin Ratio 0.7L, Thyroid Stimulating Hormone (TSH) 1.100 04/03/21 12:34: Lactic Acid Level 1.9 04/03/21 12:56: POC Troponin I (Misc) 0.02 CBC/BMP Laboratory Tests 04/03/21 12:33 Microbiology Microbiology 04/03/21 Respiratory Virus Panel (PCR) ([facility]) - Final, Complete Human Metapneumovirus 04/03/21 Blood Culture, Received Pending 04/03/21 Blood Culture, Received Pending Home Medications Scheduled Cholecalciferol (Vitamin D3) (Vitamin D3) 1,000 Unit Tablet, 1,000 UNITS PO DAILY Ferrous Sulfate (Ferrous Sulfate) 325 Mg Tablet, 325 MG PO DAILY Scheduled PRN Albuterol Sulfate (Proventil Hfa) 6.7 Gm Hfa.aer.ad, 2 PUFF INH Q4H PRN for SOB/WHEEZING Guaifenesin (Mucinex) 1,200 Mg Tab.er.12h, 1,200 MG PO BID PRN for CONGESTION Allergies Coded Allergies: No Known Allergies (Verified , 10/26/02) A-FIB/CHADSVASC A-FIB History Current/History of A-Fib/PAF?: No Current PO Anticoag Therapy: No Age/Risk Factor Scoring CHADSVASC: CHADSVASC Response (Comments) Value Age Risk Factor Age < 65 years old 0 Gender Risk Factor Female 1 Hx of CHF No 0 Hx of HTN No 0 Hx of Stroke/TIA/or VTE No 0 Hx of Diabetes No 0 Hx of Vascular Disease No 0 Total 1 Treatment Treatment ordered: NONE Reason Anticoagulant not given: Not indicated/[id number] SAMANTHA ZUNIGA MD Apr 03, 2021 17:51
[2021-04-03] MEDS: DOXYCYCLINE HYCLATE 100 MG in D5W MINI-BAG PLUS 100 ML IV SCH (21:05)
[2021-04-04 02:00] VITALS: BP 152/76
[2021-04-04] MEDS: VITAMIN D 1,000 INTERNATIONAL UNITS TABLET PO SCH (08:49)
[2021-04-04] MEDS: DOXYCYCLINE HYCLATE 100 MG in D5W MINI-BAG PLUS 100 ML IV SCH (08:49)
[2021-04-04] MEDS: ENOXAPARIN 40MG/0.4ML SYRINGE (J1650 PER 10MG) SC SCH (08:49)
[2021-04-04] MEDS: FERROUS SULFATE 325MG TAB PO SCH (08:49)
[2021-04-04 10:27] LABS: HEMATOCRIT 32.8 % (36.0-47.0); HEMOGLOBIN 10.1 g/dl (12.0-15.5); MEAN CORPUSCULAR HEMOGLOBIN 25.4 pg (27.0-33.0); MEAN CORPUSCULAR HGB CONC 30.8 g/dl (32.0-36.5); MEAN CORPUSCULAR VOLUME 82.6 fl (80.0-96.0); PLATELET COUNT, AUTOMATED 137 10^3/uL (150-450); RED BLOOD COUNT 3.97 10^6/uL (4.00-5.40); WHITE BLOOD COUNT 6.4 10^3/uL (4.0-10.0)
[2021-04-04 10:45] LABS: BLOOD UREA NITROGEN 18 MG/DL (7-18); CALCIUM LEVEL 9.1 MG/DL (8.5-10.1); CARBON DIOXIDE LEVEL 28 MEQ/L (21-32); CHLORIDE LEVEL 104 MEQ/L (98-107); GLOMERULAR FILTRATION RATE > 60.0 (>51); GLUCOSE, FASTING 124 MG/DL (70-100); MAGNESIUM LEVEL 2.1 MG/DL (1.8-2.4); POTASSIUM SERUM 4.2 MEQ/L (3.5-5.1); SODIUM LEVEL 139 MEQ/L (136-145)
--- NOTE | 2021-04-04 13:25 | IPNPDOC ---
Subjective Date Seen The patient was seen on 04/04/21. Subjective Chief Complaint/HPI Patient reports that if she is at rest sitting in 1 [address] she is doing okay with 2 to 3 L of oxygen with oxygen saturations above 90% but as soon as she starts walking even for 1 or 2 minutes it dropped to 70% and if she goes to the bathroom/showering it had been dropping down to 60%. No fever after admission. Objective Physical Examination General Exam: Positive: Alert, Cooperative, No Acute Distress Eye Exam: Positive: PERRLA, Conjunctiva & lids normal, EOMI; Negative: Sclera icteric ENT Exam: Positive: Atraumatic, Mucous membr. moist/pink, Pharynx Normal Neck Exam: Positive: Supple; Negative: JVD, thyromegaly Chest Exam: Positive: Normal air movement, Rales, Diminished, Other (Diffuse crackles); Negative: Rhonchi, Wheezing Heart Exam: Positive: Rate Normal, Regular Rhythm, Normal S1, Normal S2; Negative: Murmurs, Rubs Abdomen Exam: Positive: Normal bowel sounds, Soft, Other (OB); Negative: Tenderness Extremity Exam: Negative: Clubbing, Cyanosis, Edema Psych Exam: Positive: Memory Intact, Oriented x 3 Assessment /Plan Assessment 60yo W with significant history of recent covid-19 PNA (03/10/21 to 03/20/21) with acute hypoxemic respiratory failure for which she was discharged home on 3L NC, allergies, chronic sinusitis, Morbid obesity and hypertension who reported recent interval improvement and had been doing better with each day, but 2-3days prior to this admission she re-developed fever, chills, a productive cough, worsening SOB and noted worsening hypoxemia with ambulatory saturations on 3L reportedly in the 60% and therefore returned to the ED and now getting admitted with viral pneumonia with new infection of human metapneumovirus while gerber vering from covid-19 and for now will also empirically cover for potential CAP with ceftriaxone/doxy given fever, increased sputum and worsening hypoxemia and will follow up procalcitonin. Viral PNA: new human metapneumovirus infection continue albuterol mdi supplemental O2 to goal >90% mucinex incentive spirometry Procalcitonin not elevated will stop antibiotics. Recovering from covid-19 pneumonia with hypoxic respiratory failure Diagnosed on 03/10/2021 Morbid obesity Complicating care Emphysema CT angio of the chest shows the bilateral lung troy demonstrate chronic emphysematous changes with superimposed scattered ground-glass opacities and early infiltrates. No effusion. No pneumothorax. Tracheobronchial tree is patent. Mild reactive mediastinal adenopathy noted Will start on duonebs Hypertension Blood pressure now controlled without any medications. Plan/VTE VTE Prophylaxis Ordered?: Yes VS, I&O, 24H, Fishbone Vital Signs/I&O Vital Signs Date Time Temp Pulse Resp B/P (MAP) Pulse Ox O2 Delivery O2 Flow Rate FiO2 04/04/21 09:00 3.0 04/04/21 02:00 98.1 80 18 152/76 (101) 93 Nasal Cannula I&O- Last 24 Hours up to 6 AM 04/04/21 06:00 Intake Total 450 ml Output Total 0 ml Balance 450 ml Laboratory Data 24H LABS Laboratory Tests 2 04/04/21 02:11: Methicillin-Resist S.aureus DNA PCR NOT DETECTED 04/04/21 08:41: 04/04/21 09:35: Nucleated Red Blood Cells % (auto) 0.0, Anion Gap 7L, Glomerular Filtration Rate > 60.0, Calcium Level 9.1, Magnesium Level 2.1 CBC/BMP Laboratory Tests 04/04/21 09:35 Microbiology Microbiology 04/03/21 Respiratory Virus Panel (PCR) ([facility]) - Final, Complete Human Metapneumovirus 04/03/21 Blood Culture - Preliminary, Resulted No growth after 24 hours . All specim... 04/03/21 Blood Culture - Preliminary, Resulted No growth after 24 hours . All specim... Nelly Heredia MD Apr 04, 2021 13:25
[2021-04-04 14:00] VITALS: BP 144/72
[2021-04-04] MEDS: IPRATROPIUM 0.5MG/ALBUTEROL 2.5MG INH SOL UD 3ML (DUONEB) NEB SCH (14:28)
[2021-04-04] MEDS ORDERED: cefTRIAXone SOD 1 GM in D5W MINI-BAG PLUS 50 ML IV SCH (16:00)
[2021-04-04 21:00] VITALS: BP 148/88
[2021-04-04] MEDS ORDERED: DOXYCYCLINE HYCLATE 100MG TABLET PO SCH (21:00)
[2021-04-05 06:00] VITALS: BP 131/78
[2021-04-05 06:49] LABS: HEMATOCRIT 31.3 % (36.0-47.0); HEMOGLOBIN 9.4 g/dl (12.0-15.5); MEAN CORPUSCULAR HEMOGLOBIN 25.6 pg (27.0-33.0); MEAN CORPUSCULAR VOLUME 85.3 fl (80.0-96.0); PLATELET COUNT, AUTOMATED 130 10^3/uL (150-450); RED BLOOD COUNT 3.67 10^6/uL (4.00-5.40); WHITE BLOOD COUNT 5.6 10^3/uL (4.0-10.0)
[2021-04-05 07:02] LABS: GLUCOSE, FASTING 99 MG/DL (70-100)
[2021-04-05 07:03] LABS: BLOOD UREA NITROGEN 23 MG/DL (7-18); CALCIUM LEVEL 8.2 MG/DL (8.5-10.1); CARBON DIOXIDE LEVEL 29 MEQ/L (21-32); CHLORIDE LEVEL 109 MEQ/L (98-107); CREATININE FOR GFR 0.79 MG/DL (0.55-1.30); GLOMERULAR FILTRATION RATE > 60.0 (>51); MAGNESIUM LEVEL 1.9 MG/DL (1.8-2.4); POTASSIUM SERUM 3.9 MEQ/L (3.5-5.1); SODIUM LEVEL 144 MEQ/L (136-145)
[2021-04-05] MEDS: IPRATROPIUM 0.5MG/ALBUTEROL 2.5MG INH SOL UD 3ML (DUONEB) NEB SCH ×2 (07:48)
[2021-04-05] MEDS: VITAMIN D 1,000 INTERNATIONAL UNITS TABLET PO SCH (08:38)
[2021-04-05] MEDS: ENOXAPARIN 40MG/0.4ML SYRINGE (J1650 PER 10MG) SC SCH (08:38)
[2021-04-05] MEDS: FERROUS SULFATE 325MG TAB PO SCH (08:38)
[2021-04-05] MEDS ORDERED: predniSONE 20 MG TAB PO ONE (12:25)
[2021-04-05] MEDS ORDERED: PROV108A INH (12:29)
[2021-04-05] MEDS ORDERED: LASI20TA3 PO (12:29)
[2021-04-05] MEDS ORDERED: PRED10TA2 PO (12:29)
[2021-04-05] MEDS ORDERED: FUROSEMIDE 40MG/4ML VIAL (J1940) IV ONE (12:30)
[2021-04-05] MEDS ORDERED: PULM90IN INH (12:31)
[2021-04-05 14:08] LABS: MYCOPLASMA PNEUMONIAE IgG 463 U/mL (0-99); MYCOPLASMA PNEUMONIAE IgM <770 U/mL (0-769)
--- NOTE | 2021-04-05 17:01 | DS.PDOC ---
Discharge Summary General Date of Admission Apr 03, 2021 at 17:10 Date of Discharge 04/05/2021 Discharge Summary PROCEDURES PERFORMED DURING STAY: [None]. DISCHARGE DIAGNOSES: Human metapneumovirus pneumonia Recovering COVID-19 pneumonia Acute on Chronic hypoxic respiratory failure remains on 3 L oxygen Morbid obesity Emphysema in CT scan (ex smoker quit 8 years ago) COMPLICATIONS/CHIEF COMPLAINT: Community Acquired Pneumonia. HOSPITAL COURSE: 60yo W with significant history of recent covid-19 PNA (03/10/21 to 03/20/21) with acute hypoxemic respiratory failure for which she was discharged home on 3L NC, allergies, chronic sinusitis, Morbid obesity and hypertension who reported recent interval improvement and had been doing better with each day, but 2-3days prior to this admission she re-developed fever, chills, a productive cough, worsening SOB and noted worsening hypoxemia with ambulatory saturations on 3L reportedly in the 60% and therefore returned to the ED. She was admitted for acute on chronic hypoxic respiratory failure due to with viral pneumonia with new infection by human metapneumovirus while recovering from covid-19. Acute on Chronic hypoxic respiratory failure From recovering COVID-19 pneumonia as well as human metapneumovirus more virus infection Continue 3 L of oxygen 24 x 7. 6-minute walk test prior to discharge showed that the lowest she desaturated was 87% with 3 L oxygen with rapid recovery. At rest she is needing mostly 2 L of oxygen. On further questioning patient admitted that at home while she was going to the bathroom or walking around she was not using the oxygen so her oxygen saturations were dropping to 70s and 60s. Now she reports that she has a longer oxygen tube so will be able to take the oxygen with her to the bathroom and when she walks from one room to the other. We will give another course of prednisone taper. Viral PNA: new human metapneumovirus infection continue albuterol mdi and budesonide MDI, Mucinex Continue incentive spirometry Procalcitonin not elevated so no antibiotics given Will give a tapering course of prednisone Recovering from covid-19 pneumonia with hypoxic respiratory failure Diagnosed on 03/10/2021 Will give another tapering course of prednisone Patient appears to be mildly fluid overloaded we will start on Lasix 20 mg daily Morbid obesity Complicating care Emphysema CT angio of the chest shows the bilateral lung troy demonstrate chronic emphysematous changes with superimposed scattered ground-glass opacities and early infiltrates. No effusion. No pneumothorax. Tracheobronchial tree is patent. Mild reactive mediastinal adenopathy noted Continue albuterol and budesonide Hypertension Blood pressure now controlled without any medications. DISCHARGE MEDICATIONS: Please see below. ALLERGIES: Please see below. PHYSICAL EXAMINATION ON DISCHARGE: VITAL SIGNS: Please see below. General Exam: Positive: Alert, Cooperative, No Acute Distress Eye Exam: Positive: PERRLA, Conjunctiva & lids normal, EOMI; Negative: Sclera icteric ENT Exam: Positive: Atraumatic, Mucous membr. moist/pink, Pharynx Normal Neck Exam: Positive: Supple; Negative: JVD, thyromegaly Chest Exam: Positive: Normal air movement, Rales, Diminished, Other (Diffuse crackles); Negative: Rhonchi, Wheezing Heart Exam: Positive: Rate Normal, Regular Rhythm, Normal S1, Normal S2; Negative: Murmurs, Rubs Abdomen Exam: Positive: Normal bowel sounds, Soft, Other (OB); Negative: Tenderness Extremity Exam: Negative: Clubbing, Cyanosis, Edema Psych Exam: Positive: Memory Intact, Oriented x 3 LABORATORY DATA: Please see below. IMAGING: Satisfactory enhancement of the pulmonary vasculature is achieved and no filling defects are identified to suggest pulmonary embolus. Further evaluation of the mediastinum demonstrates normal thoracic aorta, heart and pericardium. The bilateral lung troy demonstrate chronic emphysematous changes with superimposed scattered ground-glass opacities and early infiltrates. No effusion. No pneumothorax. Tracheobronchial tree is patent. Mild reactive mediastinal a denopathy noted IMPRESSION: No evidence for pulmonary embolus. Multifocal infiltrates ACTIVITY: [As tolerated]. DIET: As tolerated DISPOSITION: 01 Home, Self-Care. DISCHARGE INSTRUCTIONS: Follow-up with PMD new appointment set up for April 21, 2021 at [facility] DISCHARGE CONDITION: [Stable]. TIME SPENT ON DISCHARGE: 35 minutes. Vital Signs/I&Os Vital Signs Date Time Temp Pulse Resp B/P (MAP) Pulse Ox O2 Delivery O2 Flow Rate FiO2 04/05/21 09:00 3.0 04/05/21 06:00 96.9 78 19 131/78 (95) 93 Nasal Cannula I&O- Last 24 Hours up to 6 AM 04/05/21 06:00 Intake Total 1060 ml Balance 1060 ml Laboratory Data Labs 24H Laboratory Tests 2 04/05/21 06:05: Nucleated Red Blood Cells % (auto) 0.0, Anion Gap 6L, Glomerular Filtration Rate > 60.0, Calcium Level 8.2L, Magnesium Level 1.9 CBC/BMP Laboratory Tests 04/05/21 06:05 Microbiology Microbiology 04/03/21 Respiratory Virus Panel (PCR) ([facility]) - Final, Complete Human Metapneumovirus 04/03/21 Blood Culture - Preliminary, Resulted No Growth after 48 hours. All Specime... 04/03/21 Blood Culture - Preliminary, Resulted No Growth after 48 hours. All Specime... Discharge Medications Scheduled Albuterol Sulfate (Proventil Hfa) 6.7 Gm Hfa.aer.ad, 2 PUFF INH QID Budesonide (Pulmicort Flexhaler) 90 Mcg Aer.pow.ba, 2 PUFF INH BID Cholecalciferol (Vitamin D3) (Vitamin D3) 1,000 Unit Tablet, 1,000 UNITS PO DAILY, (Reported) Ferrous Sulfate (Ferrous Sulfate) 325 Mg Tablet, 325 MG PO DAILY, (Reported) Furosemide (Lasix) 20 Mg Tablet, 1 TAB PO DAILY Prednisone (Prednisone) 10 Mg Tablet, 10 MG PO TAPER Take 4 tabs daily x 3 days, then 3 tabs daily x 3 days, then 2 tabs daily x 3 days, then 1 tab daily x 3 days and stop Scheduled PRN Guaifenesin (Mucinex) 1,200 Mg Tab.er.12h, 1,200 MG PO BID PRN for CONGESTION, (Reported) Allergies Coded Allergies: No Known Allergies (Verified , 10/26/02) eNlly Heredia MD Apr 05, 2021 17:01
[2021-04-06 17:08] LABS: BODY FLUID CULTURE Not indicated. (.); LEGIONELLA ANTIGEN URINE Negative (Negative); ORGANISM ID Not indicated. (.); SPECIMEN SOURCE Urine (.); URINE STREP PNEUMONIAE ANTIGEN Negative (Negative)
[2021-04-06] MEDS ORDERED: ARNU1INH3 PO (18:08)
== END 2021-04-05 15:10 | disposition home or self-care (01) | DRG 139 ==
LOC: M ED 12:03 → M ED INP 17:10 → ENRESERV 22:55 → M MS5PR 04-04 01:45
PROVIDERS: ADMIT Internal Medicine; ATTEND Internal Medicine Nephrology
DX: J12.3 Human metapneumovirus pneumonia (principal); J96.21 Acute and chronic respiratory failure with hypoxia; J43.9 Emphysema, unspecified; E66.01 Morbid (severe) obesity due to excess calories; Z87.891 Personal history of nicotine dependence; Z79.899 Other long term (current) drug therapy

== ENCOUNTER → 2021-04-27 | Outpatient (CLI) | payer OTHER ==
[~2021-04-27] MED LIST changes: +ARNU1INH3 PO; +D31000TA2 PO; +FERR1TAB8 PO; +LASI20TA3 PO; +MUCI1TAB16 PO; +PULM90IN INH
[2021-04-27 12:50] LABS: APPEARANCE, URINE HAZY (CLEAR); BACTERIA, URINE AUTO NEGATIVE (NEGATIVE); BILIRUBIN, URINE AUTO NEGATIVE (NEGATIVE); BLOOD, URINE BLOOD NEGATIVE (NEGATIVE); COLOR, URINE YELLOW (YELLOW); GLUCOSE, URINE (UA) AUTO NEGATIVE (NEGATIVE); KETONE, URINE AUTO NEGATIVE (NEGATIVE); LEUKOCYTE ESTERASE, URINE AUTO NEGATIVE (NEGATIVE); MUCUS, URINE SMALL (NEGATIVE); NITRITE, URINE AUTO NEGATIVE (NEGATIVE); PROTEIN, URINE AUTO 3+ mg/dL (NEGATIVE); RBC, URINE AUTO 0 /HPF (0-3); SPECIFIC GRAVITY URINE AUTO 1.017 (1.002-1.035); SQUAMOUS EPITHELIAL CELL UR AU 0 /HPF (0-6); UROBILINOGEN, URINE AUTO 0.2 mg/dL (0.0-2.0); WBC, URINE AUTO 4 /HPF (0-3)
[2021-04-27 12:54] LABS: BASO # 0.1 10^3/uL (0.0-0.2); BASO % 0.6 % (0.0-1.0); EOS # 0.1 10^3/uL (0.0-0.5); EOS % 0.6 % (0.0-3.0); HEMATOCRIT 35.8 % (36.0-47.0); HEMOGLOBIN 10.9 g/dl (12.0-15.5); LYMPH % 15.8 % (24.0-44.0); MEAN CORPUSCULAR HEMOGLOBIN 26.2 pg (27.0-33.0); MEAN CORPUSCULAR HGB CONC 30.4 g/dl (32.0-36.5); MEAN CORPUSCULAR VOLUME 86.1 fl (80.0-96.0); MONO # 0.8 10^3/uL (0.0-0.8); NEUTROPHILS # 9.2 10^3/uL (1.5-8.5); NEUTROPHILS % 74.3 % (36.0-66.0); PLATELET COUNT, AUTOMATED 216 10^3/uL (150-450); RED BLOOD COUNT 4.16 10^6/uL (4.00-5.40); WHITE BLOOD COUNT 12.5 10^3/uL (4.0-10.0)
[2021-04-27 13:37] LABS: BLOOD UREA NITROGEN 14 MG/DL (7-18); CALCIUM LEVEL 9.5 MG/DL (8.5-10.1); CARBON DIOXIDE LEVEL 30 MEQ/L (21-32); CHLORIDE LEVEL 105 MEQ/L (98-107); CHOLESTEROL LEVEL 322 MG/DL (<200); CHOLESTEROL RISK RATIO 7.488 (<5); CREATININE FOR GFR 0.86 MG/DL (0.55-1.30); GLOMERULAR FILTRATION RATE > 60.0 (>51); GLUCOSE, FASTING 117 MG/DL (70-100); HDL CHOLESTEROL 43 MG/DL (>40); NON-HDL-C 279 MG/DL; POTASSIUM SERUM 4.4 MEQ/L (3.5-5.1); SODIUM LEVEL 143 MEQ/L (136-145); TRIGLYCERIDES LEVEL 417 MG/DL (<150)
== END ==
LOC: M PLALAB 10:38
PROVIDERS: ATTEND Student in an Organized Health Care Education/Training Program
DX: D64.9 Anemia, unspecified (principal)

== ENCOUNTER 2021-05-23 09:07 | Observation (INO) | payer OTHER ==
[~2021-05-23] VITALS: Ht 162.6 cm; Wt 142.9 kg
[~2021-05-23 09:07] MED LIST changes: +LOSA25TA13; -LOSA25TA14
[2021-05-23] MEDS ORDERED: FLUO20CA22 PO (09:19)
[2021-05-23 10:48] LABS: BASO # 0.1 10^3/uL (0.0-0.2); BASO % 0.6 % (0.0-1.0); EOS # 0.1 10^3/uL (0.0-0.5); EOS % 0.8 % (0.0-3.0); HEMATOCRIT 34.3 % (36.0-47.0); HEMOGLOBIN 10.8 g/dl (12.0-15.5); LYMPH % 20.8 % (24.0-44.0); MEAN CORPUSCULAR HEMOGLOBIN 26.7 pg (27.0-33.0); MEAN CORPUSCULAR HGB CONC 31.5 g/dl (32.0-36.5); MEAN CORPUSCULAR VOLUME 84.9 fl (80.0-96.0); MONO # 0.6 10^3/uL (0.0-0.8); MONO % 6.5 % (2.0-8.0); NEUTROPHILS # 6.8 10^3/uL (1.5-8.5); NEUTROPHILS % 70.3 % (36.0-66.0); PLATELET COUNT, AUTOMATED 241 10^3/uL (150-450); RED BLOOD COUNT 4.04 10^6/uL (4.00-5.40); WHITE BLOOD COUNT 9.7 10^3/uL (4.0-10.0)
[2021-05-23 11:00] LABS: INR 0.88; PROTHROMBIN TIME 12.3 SECONDS (12.7-14.5)
[2021-05-23 11:01] LABS: PARTIAL THROMBOPLASTIN TIME 30.3 SECONDS (25.9-37.0)
[2021-05-23 11:15] LABS: ALBUMIN 3.3 GM/DL (3.2-5.2); ALT/SGPT 20 U/L (12-78); BILIRUBIN,DIRECT 0.1 MG/DL (0.0-0.2); BILIRUBIN,TOTAL 0.3 MG/DL (0.2-1.0); BLOOD UREA NITROGEN 12 MG/DL (7-18); CALCIUM LEVEL 9.6 MG/DL (8.5-10.1); CARBON DIOXIDE LEVEL 27 MEQ/L (21-32); CHLORIDE LEVEL 108 MEQ/L (98-107); CREATININE FOR GFR 0.75 MG/DL (0.55-1.30); GLOMERULAR FILTRATION RATE > 60.0 (>51); GLUCOSE, FASTING 107 MG/DL (70-100); LIPASE 83 U/L (73-393); NT-PRO BNP 513 PG/ML (<125); POTASSIUM SERUM 3.8 MEQ/L (3.5-5.1); SODIUM LEVEL 141 MEQ/L (136-145); TOTAL PROTEIN 6.8 GM/DL (6.4-8.2)
[2021-05-23] MEDS ORDERED: LOSARTAN 25 MG TAB PO ONE (11:20)
[2021-05-23] MEDS ORDERED: FUROSEMIDE 40 MG TAB PO ONE (11:20)
[2021-05-23 11:33] LABS: CK-MB VALUE MASS < 1.0 NG/ML (<3.6); CPK CREATINE PHOSPHOKINASE 80 U/L (26-192); MB/CK RELATIVE INDEX 1.25 (< OR =4)
[2021-05-23] MEDS ORDERED: ASPIRIN 81 MG CHEW TABLET PO ONE (12:25)
[2021-05-23 13:09] LABS: CK-MB VALUE MASS 1.2 NG/ML (<3.6); MB/CK RELATIVE INDEX 1.48 (< OR =4)
[2021-05-23] MEDS ORDERED: hydrALAZINE 20MG/ML 1ML VIAL (J0360 PER 20MG) IV ONE (13:40)
[2021-05-23] MEDS ORDERED: HOME MED LIST COMPLETE! XX SCH (15:40)
[2021-05-23] MEDS ORDERED: C 50TAB PO (15:40)
[2021-05-23] MEDS ORDERED: FURO20TA2 PO (15:40)
[2021-05-23] MEDS ORDERED: ZINC1TAB2 PO (15:40)
[2021-05-23] MEDS ORDERED: ALBU8.5H INH (15:40)
[2021-05-23] MEDS ORDERED: CYAN100050 PO (15:40)
[2021-05-23 15:55] LABS: RSV AMPLIFICATION NEGATIVE (NEGATIVE)
[2021-05-23] MEDS: FUROSEMIDE 40MG/4ML VIAL (J1940) IV SCH (17:00)
[2021-05-23] MEDS ORDERED: ISOVUE-370 76% 100ML VIAL As Ordered ONE (17:06)
[2021-05-23] MEDS: METOPROLOL TART 50 MG TAB PO SCH ×2 (18:00→23:33)
[2021-05-23 18:16] LABS: FERRITIN 54 NG/ML (8-252); IRON (FE) 46 UG/DL (50-170); PERCENT SATURATION 14.3 % (13.2-45.0); TOTAL IRON BINDING CAPACITY 321 UG/DL (250-450)
[2021-05-23 18:34] LABS: FOLATE 14.7 NG/ML (>5.4); VITAMIN B12 LEVEL 450 PG/ML (247-911)
[2021-05-23 20:40] VITALS: BP 134/71
[2021-05-23] MEDS: LOSARTAN 50MG TABLET PO SCH (21:04)
[2021-05-24] VITALS: BP 131/61
[2021-05-24 00:18] LABS: CK-MB VALUE MASS < 1.0 NG/ML (<3.6); CPK CREATINE PHOSPHOKINASE 57 U/L (26-192); MB/CK RELATIVE INDEX 1.75 (< OR =4)
[2021-05-24 04:00] VITALS: BP 117/60
[2021-05-24 05:25] VITALS: BP 117/64
[2021-05-24] MEDS: METOPROLOL TART 50 MG TAB PO SCH (05:25)
[2021-05-24 06:52] LABS: HEMATOCRIT 32.1 % (36.0-47.0); HEMOGLOBIN 10.2 g/dl (12.0-15.5); MEAN CORPUSCULAR HEMOGLOBIN 27.6 pg (27.0-33.0); MEAN CORPUSCULAR HGB CONC 31.8 g/dl (32.0-36.5); MEAN CORPUSCULAR VOLUME 86.8 fl (80.0-96.0); PLATELET COUNT, AUTOMATED 227 10^3/uL (150-450); WHITE BLOOD COUNT 8.3 10^3/uL (4.0-10.0)
[2021-05-24 07:18] LABS: BLOOD UREA NITROGEN 14 MG/DL (7-18); CALCIUM LEVEL 8.9 MG/DL (8.5-10.1); CARBON DIOXIDE LEVEL 31 MEQ/L (21-32); CHLORIDE LEVEL 105 MEQ/L (98-107); CREATININE FOR GFR 0.86 MG/DL (0.55-1.30); GLOMERULAR FILTRATION RATE > 60.0 (>51); GLUCOSE, FASTING 105 MG/DL (70-100); MAGNESIUM LEVEL 2.1 MG/DL (1.8-2.4); POTASSIUM SERUM 3.6 MEQ/L (3.5-5.1); SODIUM LEVEL 140 MEQ/L (136-145)
[2021-05-24 07:26] LABS: CK-MB VALUE MASS < 1.0 NG/ML (<3.6); CPK CREATINE PHOSPHOKINASE 41 U/L (26-192); MB/CK RELATIVE INDEX 2.44 (< OR =4)
[2021-05-24 08:03] VITALS: BP 138/74
[2021-05-24] MEDS ORDERED: FLUoxetine 20 MG CAP PO SCH (09:00)
[2021-05-24] MEDS ORDERED: ENOXAPARIN 40MG/0.4ML SYRINGE (J1650 PER 10MG) SC SCH (09:00)
[2021-05-24] MEDS ORDERED: COZA50TA PO (09:36)
[2021-05-24] MEDS ORDERED: TOPR100T PO (09:36)
[2021-05-24] MEDS ORDERED: ACETAMINOPHEN 500 MG TAB PO PRN (09:45)
[2021-05-24] MEDS: LOSARTAN 50MG TABLET PO SCH (09:59)
[2021-05-24] MEDS: FUROSEMIDE 40MG/4ML VIAL (J1940) IV SCH (10:00)
[2021-05-25 18:10] LABS: FREE KAPPA LIGHT CHAINS SERUM 32.3 mg/L (3.3-19.4); FREE LAMBDA LIGHT CHAINS SERUM 23.5 mg/L (5.7-26.3); KAPPA/LAMBDA RATIO SERUM 1.37 (0.26-1.65)
== END 2021-05-24 12:18 | disposition home or self-care (01) ==
LOC: M ED 09:07 → M ED INP 09:08 → M PCU 20:37
PROVIDERS: ADMIT Family Medicine; ATTEND Family Medicine
DX: I16.0 Hypertensive urgency (principal); I11.0 Hypertensive heart disease with heart failure; I50.9 Heart failure, unspecified; D64.9 Anemia, unspecified; E11.9 Type 2 diabetes mellitus without complications; E66.01 Morbid (severe) obesity due to excess calories; Z68.43 Body mass index [BMI] 50.0-59.9, adult; R74.8 Abnormal levels of other serum enzymes; Z86.16 Personal history of COVID-19; R06.00 Dyspnea, unspecified; R53.82 Chronic fatigue, unspecified; F32.9 Major depressive disorder, single episode, unspecified; J44.9 Chronic obstructive pulmonary disease, unspecified; Z79.899 Other long term (current) drug therapy; F17.210 Nicotine dependence, cigarettes, uncomplicated
CPT/HCPCS: 36415; 71045; 71275; 80048; 80076; 82550; 82553; 82607; 82728; 82746; 83036; 83521; 83550; 83605; 83690; 83735; 83880; 84443; 84484; 85025; 85027; 85610; 85730; 87040; 87631; 93005; 93041; 93306; 94760; 96372; 96374; 96375; 99285; J0360; J1650; J1940; Q9967

== ENCOUNTER → 2021-06-15 | Outpatient (REF) | payer OTHER ==
[~2021-06-15] MED LIST changes: +ALBU8.5H INH; +C 50TAB PO; +COZA50TA PO; +CYAN100050 PO; +FLUO20CA22 PO; +FURO20TA2 PO; +TOPR100T PO; +ZINC1TAB2 PO
== END ==
LOC: M SFHCPLAZ 14:08
PROVIDERS: ATTEND Family Medicine
DX: E11.9 Type 2 diabetes mellitus without complications (principal); Z13.220 Encounter for screening for lipoid disorders; Z53.9 Procedure and treatment not carried out, unspecified reason

== ENCOUNTER → 2022-04-10 | Outpatient (CLI) | payer MEDICAID ==
[~2022-04-10] MED LIST changes: +ALBU6.7H6 INH; -D31000TA2 PO; -PROV108A INH; +VITA100093 PO
== END ==
LOC: M RAD 11:29
PROVIDERS: ATTEND Nurse Practitioner Family
DX: R06.00 Dyspnea, unspecified (principal); R91.8 Other nonspecific abnormal finding of lung field

== ENCOUNTER 2022-04-30 16:51 | Emergency (ER) | payer BC, MEDICAID ==
[~2022-04-30] VITALS: Ht 162.6 cm; Wt 153.1 kg
[2022-04-30 16:52] VITALS: BP 162/88
[2022-04-30] MEDS ORDERED: ATOR40TA75 PO (17:05)
== END 2022-04-30 18:03 | disposition left against medical advice (07) ==
LOC: M ED 16:51
DX: Z53.21 Procedure and treatment not carried out due to patient leaving prior to being seen by health care provider (principal)

== ENCOUNTER 2022-06-04 15:35 | Emergency (ER) | payer BC ==
[~2022-06-04] VITALS: Ht 162.6 cm; Wt 140.0 kg
[~2022-06-04 15:35] MED LIST changes: +ATOR40TA75 PO
[2022-06-04] MEDS ORDERED: NAPR220C14 PO (15:59)
[2022-06-04] MEDS ORDERED: VENTAER (15:59)
[2022-06-04 22:35] VITALS: BP 138/83
== END 2022-06-04 23:40 | disposition left against medical advice (07) ==
LOC: M ED 15:35
DX: Z53.21 Procedure and treatment not carried out due to patient leaving prior to being seen by health care provider (principal)

== ENCOUNTER → 2022-09-04 | Outpatient (CLI) | payer BC ==
[~2022-09-04] MED LIST changes: -COZA50TA PO; +LOSA-528 PO; +NAPR220C14 PO; +VENTAER
[2022-09-04 15:55] LABS: BASO # 0.1 10^3/uL (0.0-0.2); BASO % 0.6 % (0.0-1.0); EOS # 0.2 10^3/uL (0.0-0.5); EOS % 1.5 % (0.0-3.0); HEMATOCRIT 39.9 % (36.0-47.0); HEMOGLOBIN 11.8 g/dl (12.0-15.5); LYMPH # 2.9 10^3/uL (1.5-5.0); LYMPH % 19.8 % (24.0-44.0); MEAN CORPUSCULAR HEMOGLOBIN 24.4 pg (27.0-33.0); MEAN CORPUSCULAR HGB CONC 29.6 g/dl (32.0-36.5); MEAN CORPUSCULAR VOLUME 82.4 fl (80.0-96.0); MONO # 0.7 10^3/uL (0.0-0.8); MONO % 4.9 % (2.0-8.0); NEUTROPHILS # 10.5 10^3/uL (1.5-8.5); NEUTROPHILS % 72.1 % (36.0-66.0); PLATELET COUNT, AUTOMATED 325 10^3/uL (150-450); RED BLOOD COUNT 4.84 10^6/uL (4.00-5.40); WHITE BLOOD COUNT 14.5 10^3/uL (4.0-10.0)
[2022-09-04 16:15] LABS: HEMOGLOBIN A1c 5.8 % (4.0-6.0)
[2022-09-04 16:24] LABS: THYROID STIMULATING HORMONE 2.852 uIU/ML (0.55-4.78)
[2022-09-04 16:25] LABS: FREE T4 1.05 NG/DL (0.89-1.76)
[2022-09-04 16:33] LABS: BILIRUBIN,TOTAL 0.4 MG/DL (0.3-1.2); CHOLESTEROL RISK RATIO 6.78 (<5); HDL CHOLESTEROL 35.2 MG/DL (>40); NON-HDL-C 203.8 MG/DL; POTASSIUM SERUM 4.6 MMOL/L (3.5-5.1); TOTAL PROTEIN 6.7 G/DL (5.7-8.2)
== END ==
LOC: M PLALAB 12:41
PROVIDERS: ATTEND Registered Nurse
DX: E66.9 Obesity, unspecified (principal)

== ENCOUNTER → 2022-09-20 | Outpatient (CLI) | payer BC | LOC: M WHC 10:26 | PROVIDERS: ATTEND Registered Nurse | DX: Z12.31 Encounter for screening mammogram for malignant neoplasm of breast (principal) ==

== ENCOUNTER → 2022-09-20 | Outpatient (CLI) | payer BC | LOC: M SLEEP 20:00 | PROVIDERS: ATTEND Nurse Practitioner Family | DX: G47.33 Obstructive sleep apnea (adult) (pediatric) (principal); I27.20 Pulmonary hypertension, unspecified; Z68.43 Body mass index [BMI] 50.0-59.9, adult ==

== ENCOUNTER → 2022-12-03 | Outpatient (CLI) | payer BC ==
[~2022-12-03] MED LIST changes: +CYAN-1 PO; -CYAN100050 PO
== END ==
LOC: M SLEEP 20:00
PROVIDERS: ATTEND Nurse Practitioner Family
DX: G47.33 Obstructive sleep apnea (adult) (pediatric) (principal); Z71.2 Person consulting for explanation of examination or test findings

== ENCOUNTER → 2023-09-30 | Outpatient (CLI) | payer OTHER ==
[~2023-09-30] MED LIST changes: +FLUO-365 PO; -FLUO20CA22 PO; +ONDA-282 PO; -ONDA4TAB6 PO
[2023-09-30 15:33] LABS: BASO # 0.1 10^3/uL (0.0-0.2); BASO % 0.7 % (0.0-1.0); EOS # 0.2 10^3/uL (0.0-0.5); EOS % 1.8 % (0.0-3.0); HEMATOCRIT 37.9 % (36.0-47.0); HEMOGLOBIN 11.4 g/dl (12.0-15.5); LYMPH # 2.3 10^3/uL (1.5-5.0); LYMPH % 18.5 % (24.0-44.0); MEAN CORPUSCULAR HEMOGLOBIN 24.7 pg (27.0-33.0); MEAN CORPUSCULAR HGB CONC 30.1 g/dl (32.0-36.5); MONO # 0.7 10^3/uL (0.0-0.8); MONO % 5.7 % (2.0-8.0); NEUTROPHILS # 8.8 10^3/uL (1.5-8.5); NEUTROPHILS % 72.6 % (36.0-66.0); PLATELET COUNT, AUTOMATED 287 10^3/uL (150-450); RED BLOOD COUNT 4.62 10^6/uL (4.00-5.40); WHITE BLOOD COUNT 12.2 10^3/uL (4.0-10.0)
[2023-09-30 15:43] LABS: HEMOGLOBIN A1c 5.9 % (4.0-6.0)
[2023-09-30 16:08] LABS: ALBUMIN 3.1 G/DL (3.2-5.2); BILIRUBIN,TOTAL 0.2 MG/DL (0.3-1.2); CALCIUM LEVEL 9.3 MG/DL (8.3-10.6); CHOLESTEROL RISK RATIO 6.3 (<5); CREATININE FOR GFR 1.02 MG/DL (0.55-1.30); GLOMERULAR FILTRATION RATE 58.5 (>45); HDL CHOLESTEROL 36.8 MG/DL (>40); NON-HDL-C 195.2 MG/DL; POTASSIUM SERUM 4.7 MMOL/L (3.5-5.1); TOTAL PROTEIN 6.8 G/DL (5.7-8.2)
== END ==
LOC: M PLALAB 12:37
PROVIDERS: ATTEND Registered Nurse
DX: E66.01 Morbid (severe) obesity due to excess calories (principal); E78.2 Mixed hyperlipidemia; R06.02 Shortness of breath; R31.9 Hematuria, unspecified

== ENCOUNTER 2023-10-16 19:16 | Inpatient (IN) | payer OTHER ==
[~2023-10-16] VITALS: Ht 162.6 cm; Wt 154.9 kg
[2023-10-16 20:51] LABS: BASO # 0.1 10^3/uL (0.0-0.2); BASO % 0.4 % (0.0-1.0); EOS # 0.1 10^3/uL (0.0-0.5); EOS % 0.5 % (0.0-3.0); HEMATOCRIT 37.1 % (36.0-47.0); HEMOGLOBIN 11.3 g/dl (12.0-15.5); LYMPH # 1.8 10^3/uL (1.5-5.0); MEAN CORPUSCULAR HEMOGLOBIN 24.4 pg (27.0-33.0); MEAN CORPUSCULAR HGB CONC 30.5 g/dl (32.0-36.5); MEAN CORPUSCULAR VOLUME 80.1 fl (80.0-96.0); MONO % 6.1 % (2.0-8.0); NEUTROPHILS # 13.5 10^3/uL (1.5-8.5); NEUTROPHILS % 81.2 % (36.0-66.0); PLATELET COUNT, AUTOMATED 301 10^3/uL (150-450); RED BLOOD COUNT 4.63 10^6/uL (4.00-5.40); WHITE BLOOD COUNT 16.7 10^3/uL (4.0-10.0)
[2023-10-16 21:20] LABS: LIPASE 24 U/L (12-53)
[2023-10-16 21:22] LABS: ALBUMIN 2.9 G/DL (3.2-5.2); ALKALINE PHOSPHATASE 147 U/L (46-116); ALT/SGPT 26 U/L (7.0-40); AST/SGOT 18 U/L (<34); BILIRUBIN,DIRECT 0.3 MG/DL (<0.4); BILIRUBIN,TOTAL 0.8 MG/DL (0.3-1.2); BLOOD UREA NITROGEN 16 MG/DL (9-23); CALCIUM LEVEL 8.9 MG/DL (8.3-10.6); CARBON DIOXIDE LEVEL 28 MMOL/L (20-31); CHLORIDE LEVEL 107 MMOL/L (98-107); CREATININE FOR GFR 1.31 MG/DL (0.55-1.30); GLOMERULAR FILTRATION RATE 43.8 (>45); GLUCOSE, FASTING 125 MG/DL (74-106); POTASSIUM SERUM 4.2 MMOL/L (3.5-5.1); SODIUM LEVEL 141 MMOL/L (136-145)
[2023-10-16 22:21] LABS: CK-MB VALUE MASS < 1.0 NG/ML (<3.6)
[2023-10-16 22:22] LABS: CPK CREATINE PHOSPHOKINASE 46 U/L (34-145); MB/CK RELATIVE INDEX 2.17 (< OR =4)
[2023-10-16] MEDS ORDERED: ISOVUE-370 76% 100ML VIAL As Ordered ONE (22:42)
[2023-10-16 22:47] LABS: CK-MB VALUE MASS < 1.0 NG/ML (<3.6)
[2023-10-16 22:50] LABS: CPK CREATINE PHOSPHOKINASE 53 U/L (34-145); MB/CK RELATIVE INDEX 1.88 (< OR =4)
[2023-10-16] MEDS: ASPIRIN 81MG CHEW TABLET PO ONE (23:52)
[2023-10-16] MEDS: AZITHROMYCIN 250MG TABLET PO ONE (23:52)
[2023-10-16] MEDS: cefTRIAXone SOD 2 GM in D5W MINI-BAG PLUS 50 ML IV ONE (23:53)
[2023-10-17] MEDS: ALBUTEROL SULFATE 2.5MG/0.5ML INH NEB SOLN NEB ONE ×2 (00:25→00:26)
[2023-10-17] MEDS: NS 1,000 ML IV ONE (00:58)
[2023-10-17] MEDS ORDERED: ACETAMINOPHEN TAB 650MG DOSE (2X325MG) PO PRN (01:40)
[2023-10-17] MEDS ORDERED: ONDANSETRON 4MG 2ML VIAL IV PRN (01:40)
[2023-10-17] MEDS ORDERED: FLUO40CA PO (03:22)
[2023-10-17] MEDS ORDERED: LOSA50TA28 PO (03:22)
[2023-10-17] MEDS ORDERED: ALEV220T22 PO (03:22)
[2023-10-17] MEDS ORDERED: ALBU8.5H INH (03:22)
[2023-10-17] MEDS ORDERED: HOME MED LIST COMPLETE! XX SCH (03:30)
[2023-10-17] MEDS ORDERED: ALBUTEROL 90 MCG/ACT 8GM HFA INHALER INH PRN (04:05)
[2023-10-17 04:10] VITALS: BP 147/73; TEMP 97; O2SAT 95
[2023-10-17 08:24] LABS: BASO # 0.1 10^3/uL (0.0-0.2); BASO % 0.5 % (0.0-1.0); EOS # 0.2 10^3/uL (0.0-0.5); EOS % 1.5 % (0.0-3.0); HEMATOCRIT 32.1 % (36.0-47.0); HEMOGLOBIN 9.7 g/dl (12.0-15.5); LYMPH # 1.6 10^3/uL (1.5-5.0); LYMPH % 16.1 % (24.0-44.0); MEAN CORPUSCULAR HEMOGLOBIN 24.2 pg (27.0-33.0); MEAN CORPUSCULAR HGB CONC 30.2 g/dl (32.0-36.5); MONO # 0.7 10^3/uL (0.0-0.8); MONO % 6.6 % (2.0-8.0); NEUTROPHILS # 7.5 10^3/uL (1.5-8.5); NEUTROPHILS % 74.7 % (36.0-66.0); PLATELET COUNT, AUTOMATED 240 10^3/uL (150-450); RED BLOOD COUNT 4.01 10^6/uL (4.00-5.40); WHITE BLOOD COUNT 10.1 10^3/uL (4.0-10.0)
[2023-10-17 08:59] LABS: PROCALCITONIN 0.11 ng/ml
[2023-10-17 09:00] LABS: ALBUMIN 2.5 G/DL (3.2-5.2); BILIRUBIN,TOTAL 0.4 MG/DL (0.3-1.2); CALCIUM LEVEL 8.4 MG/DL (8.3-10.6); CREATININE FOR GFR 1.23 MG/DL (0.55-1.30); GLOMERULAR FILTRATION RATE 47.1 (>45); POTASSIUM SERUM 3.6 MMOL/L (3.5-5.1)
[2023-10-17] MEDS: VITAMIN D 1,000 INTERNATIONAL UNITS TABLET PO SCH (09:00)
[2023-10-17] MEDS ORDERED: LOSARTAN 50MG TABLET PO SCH (09:00)
[2023-10-17] MEDS ORDERED: FUROSEMIDE 20 MG TAB PO SCH (09:00)
[2023-10-17] MEDS: ASCORBIC ACID 500 MG TAB PO SCH (09:00)
[2023-10-17] MEDS: DOCUSATE SODIUM 100MG CAPSULE PO SCH (09:12)
[2023-10-17] MEDS: ENOXAPARIN 80MG/0.8ML SYRINGE (J1650 PER 10MG) SC SCH (09:12)
[2023-10-17] MEDS: FLUoxetine 20MG CAP PO SCH (09:13)
[2023-10-17] MEDS ORDERED: cefTRIAXone SOD 2 GM in D5W MINI-BAG PLUS 50 ML IV SCH (12:00)
[2023-10-17] MEDS: LIDOCAINE 5% (LIDODERM) PATCH TD SCH (12:33)
[2023-10-17 13:59] VITALS: BP 167/94; TEMP 97.5; O2SAT 93
[2023-10-17] MEDS: CYCLOBENZAPRINE 5MG TABLET PO SCH (14:00)
[2023-10-17] MEDS: TIOTROPIUM INHALER/CAPSULE (SPIRIVA) INH SCH (14:36)
[2023-10-17] MEDS: HEPARIN SOD (PORCINE) 5000UNITS/ML 1ML VIAL/SYRINGE SQ SCH (15:00)
[2023-10-17 20:00] VITALS: BP 155/90; TEMP 97.2; O2SAT 92
[2023-10-17] MEDS: AZITHROMYCIN 250MG TABLET PO SCH (21:20)
[2023-10-17] MEDS: cefTRIAXone SOD 2 GM in D5W MINI-BAG PLUS 50 ML IV SCH (21:21)
[2023-10-18 04:00] VITALS: BP 163/85; TEMP 96.8; O2SAT 95
[2023-10-18 08:31] LABS: CALCIUM LEVEL 8.4 MG/DL (8.3-10.6); CREATININE FOR GFR 1.2 MG/DL (0.55-1.30); GLOMERULAR FILTRATION RATE 48.5 (>45); POTASSIUM SERUM 4.4 MMOL/L (3.5-5.1)
[2023-10-18] MEDS ORDERED: LOSARTAN 50MG TABLET PO SCH (09:00)
[2023-10-18 09:13] LABS: BASO # 0.1 10^3/uL (0.0-0.2); BASO % 0.5 % (0.0-1.0); EOS # 0.2 10^3/uL (0.0-0.5); EOS % 2.2 % (0.0-3.0); HEMATOCRIT 34.7 % (36.0-47.0); HEMOGLOBIN 10.1 g/dl (12.0-15.5); LYMPH # 1.8 10^3/uL (1.5-5.0); LYMPH % 16.3 % (24.0-44.0); MEAN CORPUSCULAR HEMOGLOBIN 24.1 pg (27.0-33.0); MEAN CORPUSCULAR HGB CONC 29.1 g/dl (32.0-36.5); MEAN CORPUSCULAR VOLUME 82.8 fl (80.0-96.0); MONO # 0.8 10^3/uL (0.0-0.8); MONO % 7.2 % (2.0-8.0); NEUTROPHILS % 72.7 % (36.0-66.0); PLATELET COUNT, AUTOMATED 292 10^3/uL (150-450); RED BLOOD COUNT 4.19 10^6/uL (4.00-5.40); WHITE BLOOD COUNT 10.9 10^3/uL (4.0-10.0)
[2023-10-18] MEDS: FUROSEMIDE 20 MG TAB PO SCH (10:55)
[2023-10-18] MEDS: IBUPROFEN 800 MG TAB PO ONE (10:56)
[2023-10-18 20:11] VITALS: BP 163/85; TEMP 97.3; O2SAT 95
[2023-10-18] MEDS: IBUPROFEN 400MG TAB PO ONE (22:08)
[2023-10-19 04:00] VITALS: BP 155/84; TEMP 97.1; O2SAT 92
[2023-10-19] MEDS: KETOROLAC TROMETHAMINE 10 MG TAB PO ONE (06:24)
[2023-10-19] MEDS: AUGMENTIN 875 MG TAB PO SCH (08:44)
[2023-10-19 08:45] VITALS: BP 148/86
[2023-10-19] MEDS: LOSARTAN 50MG TABLET PO SCH (08:45)
[2023-10-19] MEDS ORDERED: AMOX875T2 PO (09:36)
[2023-10-19] MEDS ORDERED: LIDO5TD TD (09:36)
[2023-10-19] MEDS ORDERED: TIOT18INH INH (09:36)
[2023-10-19] MEDS ORDERED: CYCL5TAB PO (09:36)
[2023-10-19] MEDS ORDERED: SUMA100T2 PO (09:38)
[2023-10-19] MEDS: SUMAtriptan SUCCINATE 25 MG TAB PO ONE (11:59)
[2023-10-19 12:00] VITALS: BP 131/80; TEMP 97.7; O2SAT 96
== END 2023-10-19 16:20 | disposition home or self-care (01) | DRG 139 ==
LOC: M ED 19:16 → M ED INP 10-17 01:39 → M MS4PR 10-17 04:10 → M MSPAV 10-17 13:59
PROVIDERS: ADMIT Preventive Medicine Undersea and Hyperbaric Medicine; ATTEND Student in an Organized Health Care Education/Training Program
DX: J18.9 Pneumonia, unspecified organism (principal); I21.A1 Myocardial infarction type 2; J96.11 Chronic respiratory failure with hypoxia; N17.9 Acute kidney failure, unspecified; N18.30 Chronic kidney disease, stage 3 unspecified; I13.0 Hypertensive heart and chronic kidney disease with heart failure and stage 1 through stage 4 chronic kidney disease, or unspecified chronic kidney disease; I50.32 Chronic diastolic (congestive) heart failure; J44.0 Chronic obstructive pulmonary disease with (acute) lower respiratory infection; Z68.43 Body mass index [BMI] 50.0-59.9, adult; E66.01 Morbid (severe) obesity due to excess calories; J43.9 Emphysema, unspecified; E78.5 Hyperlipidemia, unspecified; F32.A Depression, unspecified; G89.29 Other chronic pain; M54.59 Other low back pain; Z86.16 Personal history of COVID-19; Z79.899 Other long term (current) drug therapy; D64.9 Anemia, unspecified; Z87.891 Personal history of nicotine dependence; E53.8 Deficiency of other specified B group vitamins

== ENCOUNTER 2023-11-23 22:23 | Inpatient (IN) | payer MEDICAID, OTHER ==
[~2023-11-23] VITALS: Ht 162.6 cm; Wt 154.2 kg
[~2023-11-23 22:23] MED LIST changes: +ALEV220T22 PO; +AMOX875T2 PO; +CYCL5TAB PO; +FLUO40CA PO; +LIDO5TD TD; +LOSA50TA28 PO; +SUMA100T2 PO; +TIOT18INH INH
[2023-11-23 23:15] LABS: BASO # 0.1 10^3/uL (0.0-0.2); BASO % 0.6 % (0.0-1.0); EOS # 0.3 10^3/uL (0.0-0.5); EOS % 1.5 % (0.0-3.0); HEMATOCRIT 35.2 % (36.0-47.0); HEMOGLOBIN 10.9 g/dl (12.0-15.5); LYMPH # 3.2 10^3/uL (1.5-5.0); LYMPH % 16.1 % (24.0-44.0); MEAN CORPUSCULAR HEMOGLOBIN 24.4 pg (27.0-33.0); MEAN CORPUSCULAR VOLUME 78.9 fl (80.0-96.0); MONO % 4.8 % (2.0-8.0); NEUTROPHILS # 14.9 10^3/uL (1.5-8.5); NEUTROPHILS % 75.3 % (36.0-66.0); PLATELET COUNT, AUTOMATED 349 10^3/uL (150-450); RED BLOOD COUNT 4.46 10^6/uL (4.00-5.40); WHITE BLOOD COUNT 19.8 10^3/uL (4.0-10.0)
[2023-11-23 23:33] LABS: CK-MB VALUE MASS 1.1 NG/ML (<3.6)
[2023-11-23 23:35] LABS: ALBUMIN 3.3 G/DL (3.2-5.2); ALKALINE PHOSPHATASE 129 U/L (46-116); ALT/SGPT 13 U/L (7.0-40); AST/SGOT 9 U/L (<34); BILIRUBIN,DIRECT < 0.1 MG/DL (<0.4); BILIRUBIN,TOTAL 0.2 MG/DL (0.3-1.2); BLOOD UREA NITROGEN 45 MG/DL (9-23); CALCIUM LEVEL 8.9 MG/DL (8.3-10.6); CARBON DIOXIDE LEVEL 20 MMOL/L (20-31); CHLORIDE LEVEL 105 MMOL/L (98-107); CPK CREATINE PHOSPHOKINASE 60 U/L (34-145); GLOMERULAR FILTRATION RATE 20.8 (>45); GLUCOSE, FASTING 152 MG/DL (74-106); MB/CK RELATIVE INDEX 1.83 (< OR =4); POTASSIUM SERUM 4.3 MMOL/L (3.5-5.1); SODIUM LEVEL 139 MMOL/L (136-145); TOTAL PROTEIN 6.9 G/DL (5.7-8.2)
[2023-11-24] MEDS: NS 1,000 ML IV ONE (00:43)
[2023-11-24] MEDS: cefTRIAXone SOD 1 GM in D5W MINI-BAG PLUS 50 ML IV ONE (00:56)
[2023-11-24] MEDS: AZITHROMYCIN 250MG TABLET PO ONE (00:56)
[2023-11-24 01:01] LABS: PROCALCITONIN 0.13 ng/ml
[2023-11-24] MEDS ORDERED: HOME MED LIST COMPLETE! XX SCH (05:40)
[2023-11-24] MEDS ORDERED: OMEP-173 PO (05:40)
[2023-11-24] MEDS: methylPREDNISolone 125MG 2ML VIAL IV ONE (06:10)
[2023-11-24] MEDS: KETOROLAC 30 MG/ML 1ML VIAL IV ONE (07:29)
[2023-11-24 09:38] LABS: HEMATOCRIT 34.5 % (36.0-47.0); HEMOGLOBIN 10.6 g/dl (12.0-15.5); MEAN CORPUSCULAR HEMOGLOBIN 24.5 pg (27.0-33.0); MEAN CORPUSCULAR HGB CONC 30.7 g/dl (32.0-36.5); MEAN CORPUSCULAR VOLUME 79.7 fl (80.0-96.0); PLATELET COUNT, AUTOMATED 253 10^3/uL (150-450); RED BLOOD COUNT 4.33 10^6/uL (4.00-5.40); WHITE BLOOD COUNT 14.4 10^3/uL (4.0-10.0)
[2023-11-24] MEDS: DOCUSATE SODIUM 100MG CAPSULE PO SCH (10:07)
[2023-11-24] MEDS: PANTOPRAZOLE 40MG TAB (PROTONIX) PO SCH (10:07)
[2023-11-24] MEDS: guaiFENesin ER TABLET 600 MG TAB PO SCH (10:07)
[2023-11-24 10:08] LABS: ALBUMIN 3.2 G/DL (3.2-5.2); BILIRUBIN,TOTAL 0.2 MG/DL (0.3-1.2); CALCIUM LEVEL 8.8 MG/DL (8.3-10.6); CREATININE FOR GFR 2.01 MG/DL (0.55-1.30); GLOMERULAR FILTRATION RATE 26.7 (>45); POTASSIUM SERUM 4.5 MMOL/L (3.5-5.1); TOTAL PROTEIN 6.9 G/DL (5.7-8.2)
[2023-11-24] MEDS: AZITHROMYCIN INJ 500 MG, VIAL MATE ADAPTER 1 EACH in NS 250 ML IV SCH (10:08)
[2023-11-24] MEDS: ENOXAPARIN 40MG/0.4ML SYRINGE (J1650 PER 10MG) SC SCH (10:09)
[2023-11-24] MEDS: NS 1,000 ML IV SCH (10:10)
[2023-11-24 10:19] LABS: PROCALCITONIN 0.1 ng/ml
[2023-11-24] MEDS: cefTRIAXone SOD 1 GM in D5W MINI-BAG PLUS 50 ML IV SCH (11:59)
[2023-11-24] MEDS: IPRATROPIUM 0.5MG/ALBUTEROL 2.5MG INH SOL UD 3ML (DUONEB) NEB SCH (13:33)
[2023-11-24 14:30] VITALS: BP 122/63; TEMP 97.1; O2SAT 91
[2023-11-24] MEDS: methylPREDNISolone 40MG 1ML VIAL IV SCH (15:06)
[2023-11-24 15:28] LABS: MAGNESIUM LEVEL 1.7 MG/DL (1.8-2.4)
[2023-11-24 16:00] VITALS: BP 128/69; TEMP 97; O2SAT 92
[2023-11-24 20:18] VITALS: BP 137/77; TEMP 96.9; O2SAT 94
[2023-11-24] MEDS: CYCLOBENZAPRINE 5MG TABLET PO PRN (21:11)
[2023-11-24] MEDS: ACETAMINOPHEN TAB 650MG DOSE (2X325MG) PO PRN (21:11)
[2023-11-24 23:51] VITALS: BP 127/57; TEMP 97; O2SAT 94
[2023-11-25 04:00] VITALS: BP 110/53; TEMP 97; O2SAT 96
[2023-11-25 06:03] LABS: HEMATOCRIT 31.8 % (36.0-47.0); HEMOGLOBIN 9.6 g/dl (12.0-15.5); MEAN CORPUSCULAR HEMOGLOBIN 24.2 pg (27.0-33.0); MEAN CORPUSCULAR HGB CONC 30.2 g/dl (32.0-36.5); MEAN CORPUSCULAR VOLUME 80.3 fl (80.0-96.0); PLATELET COUNT, AUTOMATED 259 10^3/uL (150-450); RED BLOOD COUNT 3.96 10^6/uL (4.00-5.40); WHITE BLOOD COUNT 15.8 10^3/uL (4.0-10.0)
[2023-11-25 06:34] LABS: PROCALCITONIN <0.04 ng/ml
[2023-11-25 06:39] LABS: ALBUMIN 2.7 G/DL (3.2-5.2); ALKALINE PHOSPHATASE 107 U/L (46-116); ALT/SGPT 10 U/L (7.0-40); AST/SGOT < 8 U/L (<34); BILIRUBIN,TOTAL 0.2 MG/DL (0.3-1.2); BLOOD UREA NITROGEN 39 MG/DL (9-23); CALCIUM LEVEL 8.7 MG/DL (8.3-10.6); CARBON DIOXIDE LEVEL 23 MMOL/L (20-31); CHLORIDE LEVEL 110 MMOL/L (98-107); CREATININE FOR GFR 1.43 MG/DL (0.55-1.30); GLOMERULAR FILTRATION RATE 39.6 (>45); GLUCOSE, FASTING 165 MG/DL (74-106); MAGNESIUM LEVEL 1.8 MG/DL (1.8-2.4); POTASSIUM SERUM 5.3 MMOL/L (3.5-5.1); SODIUM LEVEL 141 MMOL/L (136-145); TOTAL PROTEIN 6.1 G/DL (5.7-8.2)
[2023-11-25 08:13] VITALS: BP 150/89; TEMP 97; O2SAT 99
[2023-11-25] MEDS: LIDOCAINE 5% (LIDODERM) PATCH TD SCH (09:40)
[2023-11-25] MEDS: FLUoxetine 20MG CAP PO SCH (09:42)
[2023-11-25] MEDS: predniSONE 20 MG TAB PO SCH (14:21)
[2023-11-25 16:42] VITALS: BP 132/62; TEMP 97.4; O2SAT 96
[2023-11-25 20:38] VITALS: BP 119/63; TEMP 97.1; O2SAT 95
[2023-11-26] VITALS (15 sets, daily range): BP systolic 141–184; BP diastolic 64–100; TEMP 96.3–98.1; O2SAT 74–97
[2023-11-26 06:38] LABS: CALCIUM LEVEL 8.4 MG/DL (8.3-10.6); CREATININE FOR GFR 1.07 MG/DL (0.55-1.30); GLOMERULAR FILTRATION RATE 55.3 (>45); POTASSIUM SERUM 4.9 MMOL/L (3.5-5.1)
[2023-11-26] MEDS ORDERED: ALBU8.5H INH (08:37)
[2023-11-26] MEDS ORDERED: PRED20TA PO (08:37)
[2023-11-26] MEDS ORDERED: DOXY-440 PO (08:37)
[2023-11-26] MEDS ORDERED: AZIT-12 PO (08:37)
[2023-11-26] MEDS: AZITHROMYCIN 250MG TABLET PO SCH (08:54)
[2023-11-26] MEDS ORDERED: METO25TA4 PO (10:57)
[2023-11-26] MEDS: METOPROLOL 5 MG/5 ML VIAL IV STA (11:05)
[2023-11-26] MEDS: METOPROLOL TART 25 MG TABLET PO ONE (11:06)
[2023-11-26] MEDS: cloNIDine 0.1MG TABLET PO SCH ×2 (13:15→16:00)
[2023-11-26] MEDS: KETOROLAC 30 MG/ML 1ML VIAL IV ONE (13:15)
[2023-11-26] MEDS: METOCLOPRAMIDE INJ 10MG/2ML VIAL IV ONE (13:16)
[2023-11-26] MEDS: SUMAtriptan SUCCINATE 6MG/0.5ML VIAL SC ONE (14:05)
[2023-11-26] MEDS ORDERED: CEFD300CAP PO (14:44)
[2023-11-26] MEDS: CEFDINIR 300 MG CAP (OMNICEF) PO SCH (15:39)
[2023-11-26 23:20] LABS: CALCIUM LEVEL 8.2 MG/DL (8.3-10.6); CREATININE FOR GFR 1.4 MG/DL (0.55-1.30); GLOMERULAR FILTRATION RATE 40.6 (>45); POTASSIUM SERUM 5.4 MMOL/L (3.5-5.1)
[2023-11-26] MEDS: FUROSEMIDE 40MG/4ML VIAL IV ONE (23:55)
[2023-11-27] VITALS (11 sets, daily range): BP systolic 118–170; BP diastolic 62–98; TEMP 97–97.9; O2SAT 89–98
[2023-11-27 06:54] LABS: HEMOGLOBIN 10.3 g/dl (12.0-15.5); MEAN CORPUSCULAR HEMOGLOBIN 24.6 pg (27.0-33.0); MEAN CORPUSCULAR HGB CONC 29.4 g/dl (32.0-36.5); MEAN CORPUSCULAR VOLUME 83.7 fl (80.0-96.0); PLATELET COUNT, AUTOMATED 236 10^3/uL (150-450); RED BLOOD COUNT 4.18 10^6/uL (4.00-5.40); WHITE BLOOD COUNT 17.5 10^3/uL (4.0-10.0)
[2023-11-27] MEDS: metOLazone 5 MG TAB PO ONE (08:32)
[2023-11-27] MEDS: FUROSEMIDE 100MG/10ML VIAL IV ONE (09:30)
[2023-11-27] MEDS: FUROSEMIDE 40MG/4ML VIAL IV ONE (12:45)
[2023-11-27] MEDS ORDERED: PATIROMER SORBITEX CALCIUM 8.4 GM POWDER PACKET (VELTASSA) PO ONE (14:05)
[2023-11-27] MEDS ORDERED: CALCIUM GLUCONATE 1,000 MG in D5W MINI-BAG PLUS 100 ML IV ONE ×2 (14:05→17:00)
[2023-11-27 15:04] LABS: IONIZED CALCIUM 4.6 MG/DL (4.5-5.3)
[2023-11-27 15:29] LABS: MAGNESIUM LEVEL 1.4 MG/DL (1.8-2.4)
[2023-11-27 15:32] LABS: CALCIUM LEVEL 8.8 MG/DL (8.3-10.6); CREATININE FOR GFR 1.29 MG/DL (0.55-1.30); GLOMERULAR FILTRATION RATE 44.6 (>45); POTASSIUM SERUM 4.6 MMOL/L (3.5-5.1)
[2023-11-27] MEDS: MAG SULF 1GM/100ML (MAG RUN) 1 GM in IV 1 EA IV ONE (16:23)
[2023-11-27] MEDS: FUROSEMIDE 40MG/4ML VIAL IV SCH (18:44)
[2023-11-27 23:15] LABS: CALCIUM LEVEL 8.7 MG/DL (8.3-10.6); CREATININE FOR GFR 1.44 MG/DL (0.55-1.30); GLOMERULAR FILTRATION RATE 39.3 (>45); POTASSIUM SERUM 4.4 MMOL/L (3.5-5.1)
[2023-11-28] VITALS (19 sets, daily range): BP systolic 122–150; BP diastolic 58–81; TEMP 96.8–99.1; O2SAT 78–97
[2023-11-28 03:53] LABS: BASO % 0.1 % (0.0-1.0); EOS % 0.1 % (0.0-3.0); HEMATOCRIT 32.6 % (36.0-47.0); HEMOGLOBIN 9.9 g/dl (12.0-15.5); LYMPH # 1.6 10^3/uL (1.5-5.0); LYMPH % 9.5 % (24.0-44.0); MEAN CORPUSCULAR HEMOGLOBIN 24.1 pg (27.0-33.0); MEAN CORPUSCULAR HGB CONC 30.4 g/dl (32.0-36.5); MEAN CORPUSCULAR VOLUME 79.5 fl (80.0-96.0); MONO # 0.8 10^3/uL (0.0-0.8); MONO % 4.4 % (2.0-8.0); NEUTROPHILS # 14.3 10^3/uL (1.5-8.5); NEUTROPHILS % 84.7 % (36.0-66.0); PLATELET COUNT, AUTOMATED 284 10^3/uL (150-450); WHITE BLOOD COUNT 16.9 10^3/uL (4.0-10.0)
[2023-11-28 04:17] LABS: CALCIUM LEVEL 8.8 MG/DL (8.3-10.6); CREATININE FOR GFR 1.42 MG/DL (0.55-1.30); GLOMERULAR FILTRATION RATE 39.9 (>45); POTASSIUM SERUM 4.2 MMOL/L (3.5-5.1)
[2023-11-28] MEDS: ALBUTEROL 90 MCG/ACT 8GM HFA INHALER INH PRN (04:50)
[2023-11-28] MEDS: FIORICET TAB PO PRN (06:48)
[2023-11-28] MEDS: IPRATROPIUM 0.02% SOLN 0.5MG 2.5ML NEB INH SCH (08:00)
[2023-11-28] MEDS: LEVALBUTEROL 1.25MG 0.5ML CONCENTRATE NEB INH SCH (08:00)
[2023-11-28] MEDS ORDERED: IPRATROPIUM 0.02% SOLN 0.5MG 2.5ML NEB INH PRN (10:25)
[2023-11-28] MEDS ORDERED: LEVALBUTEROL 1.25MG 0.5ML CONCENTRATE NEB INH PRN (10:25)
[2023-11-28 10:39] LABS: MAGNESIUM LEVEL 1.7 MG/DL (1.8-2.4)
[2023-11-28] MEDS: MAG SULF 1GM/100ML (MAG RUN) 1 GM in IV 1 EA IV SCH (11:31)
[2023-11-28] MEDS: CETIRIZINE (ZyrTEC) 10 MG TAB PO ONE (11:32)
[2023-11-28] MEDS: PERCOCET 5MG/325MG TAB PO ONE (11:32)
[2023-11-28] MEDS: methylPREDNISolone 125MG 2ML VIAL IV ONE (11:32)
[2023-11-28] MEDS: MONTELUKAST 10 MG TAB PO ONE (11:39)
[2023-11-28] MEDS: LIDOCAINE 5% (LIDODERM) PATCH TD SCH (13:56)
[2023-11-28] MEDS: FUROSEMIDE 40MG/4ML VIAL IV SCH ×2 (13:56→18:34)
[2023-11-28] MEDS: methylPREDNISolone 125MG 2ML VIAL IV SCH (15:54)
[2023-11-28] MEDS: metOLazone 5 MG TAB PO ONE (18:03)
[2023-11-28 23:57] LABS: CALCIUM LEVEL 8.9 MG/DL (8.3-10.6); CREATININE FOR GFR 1.5 MG/DL (0.55-1.30); GLOMERULAR FILTRATION RATE 37.5 (>45); POTASSIUM SERUM 4.2 MMOL/L (3.5-5.1)
[2023-11-29] VITALS (30 sets, daily range): BP systolic 116–180; BP diastolic 54–150; TEMP 97.1–98.2; O2SAT 85–98
[2023-11-29 06:49] LABS: BASO % 0.1 % (0.0-1.0); HEMATOCRIT 36.6 % (36.0-47.0); HEMOGLOBIN 11.1 g/dl (12.0-15.5); LYMPH # 0.8 10^3/uL (1.5-5.0); LYMPH % 4.1 % (24.0-44.0); MEAN CORPUSCULAR HGB CONC 30.3 g/dl (32.0-36.5); MEAN CORPUSCULAR VOLUME 79.2 fl (80.0-96.0); MONO # 0.4 10^3/uL (0.0-0.8); MONO % 2.2 % (2.0-8.0); NEUTROPHILS # 18.5 10^3/uL (1.5-8.5); NEUTROPHILS % 91.9 % (36.0-66.0); PLATELET COUNT, AUTOMATED 409 10^3/uL (150-450); RED BLOOD COUNT 4.62 10^6/uL (4.00-5.40); WHITE BLOOD COUNT 20.1 10^3/uL (4.0-10.0)
[2023-11-29 07:20] LABS: CALCIUM LEVEL 9.8 MG/DL (8.3-10.6); CREATININE FOR GFR 1.46 MG/DL (0.55-1.30); GLOMERULAR FILTRATION RATE 38.6 (>45); MAGNESIUM LEVEL 2.1 MG/DL (1.8-2.4); POTASSIUM SERUM 4.3 MMOL/L (3.5-5.1)
[2023-11-29] MEDS: METOPROLOL 5 MG/5 ML VIAL IV STA ×2 (08:11→11:36)
[2023-11-29] MEDS ORDERED: IPRATROPIUM 0.02% SOLN 0.5MG 2.5ML NEB INH PRN (08:15)
[2023-11-29] MEDS: amLODIPine 5 MG TAB PO SCH (09:37)
[2023-11-29] MEDS: ACETAMINOPHEN 500 MG TAB PO ONE (09:38)
[2023-11-29] MEDS: CETIRIZINE (ZyrTEC) 10 MG TAB PO SCH (09:38)
[2023-11-29] MEDS: METOPROLOL TART 25 MG TABLET PO ONE ×2 (09:38→12:47)
[2023-11-29] MEDS: MONTELUKAST 10 MG TAB PO SCH (09:39)
[2023-11-29] MEDS: hydrALAZINE 20MG/ML 1ML VIAL IV PRN (10:45)
[2023-11-29] MEDS ORDERED: IPRATROPIUM 0.02% SOLN 0.5MG 2.5ML NEB INH SCH (12:00)
[2023-11-29] MEDS: BUDESONIDE 180MCG INHALER (PULMICORT FLEXHALER) INH SCH (12:04)
[2023-11-29] MEDS: FUROSEMIDE 40 MG TAB PO SCH (12:47)
[2023-11-29] MEDS: ENOXAPARIN 60MG/0.6ML SYRINGE (J1650 PER 10MG) SC SCH (17:47)
[2023-11-29] MEDS: SODIUM CHLORIDE NASAL 0.65% SPRAY BTL (OCEAN) SCH (20:38)
[2023-11-30] VITALS (13 sets, daily range): BP systolic 134–158; BP diastolic 66–92; TEMP 96.4–98.1; O2SAT 95–100
[2023-11-30 05:19] LABS: BASO # 0.1 10^3/uL (0.0-0.2); BASO % 0.2 % (0.0-1.0); HEMATOCRIT 35.2 % (36.0-47.0); HEMOGLOBIN 10.7 g/dl (12.0-15.5); LYMPH # 0.9 10^3/uL (1.5-5.0); LYMPH % 3.8 % (24.0-44.0); MEAN CORPUSCULAR HEMOGLOBIN 24.1 pg (27.0-33.0); MEAN CORPUSCULAR HGB CONC 30.4 g/dl (32.0-36.5); MEAN CORPUSCULAR VOLUME 79.3 fl (80.0-96.0); MONO # 0.9 10^3/uL (0.0-0.8); MONO % 3.8 % (2.0-8.0); NEUTROPHILS # 20.2 10^3/uL (1.5-8.5); NEUTROPHILS % 90.2 % (36.0-66.0); PLATELET COUNT, AUTOMATED 418 10^3/uL (150-450); RED BLOOD COUNT 4.44 10^6/uL (4.00-5.40); WHITE BLOOD COUNT 22.4 10^3/uL (4.0-10.0)
[2023-11-30 05:45] LABS: CALCIUM LEVEL 9.4 MG/DL (8.3-10.6); CREATININE FOR GFR 1.5 MG/DL (0.55-1.30); GLOMERULAR FILTRATION RATE 37.5 (>45); MAGNESIUM LEVEL 2.3 MG/DL (1.8-2.4); POTASSIUM SERUM 4.1 MMOL/L (3.5-5.1)
[2023-11-30] MEDS: methylPREDNISolone 40MG 1ML VIAL IV SCH (17:18)
[2023-12-01] VITALS (12 sets, daily range): BP systolic 126–163; BP diastolic 58–77; TEMP 97.2–98; O2SAT 94–99
[2023-12-01 05:49] LABS: BASO % 0.2 % (0.0-1.0); HEMATOCRIT 37.4 % (36.0-47.0); HEMOGLOBIN 11.2 g/dl (12.0-15.5); LYMPH % 4.9 % (24.0-44.0); MEAN CORPUSCULAR HEMOGLOBIN 24.1 pg (27.0-33.0); MEAN CORPUSCULAR HGB CONC 29.9 g/dl (32.0-36.5); MEAN CORPUSCULAR VOLUME 80.4 fl (80.0-96.0); MONO # 1.3 10^3/uL (0.0-0.8); MONO % 6.8 % (2.0-8.0); NEUTROPHILS # 16.6 10^3/uL (1.5-8.5); NEUTROPHILS % 85.8 % (36.0-66.0); PLATELET COUNT, AUTOMATED 393 10^3/uL (150-450); RED BLOOD COUNT 4.65 10^6/uL (4.00-5.40); WHITE BLOOD COUNT 19.3 10^3/uL (4.0-10.0)
[2023-12-01 06:17] LABS: CALCIUM LEVEL 9.3 MG/DL (8.3-10.6); CREATININE FOR GFR 1.29 MG/DL (0.55-1.30); GLOMERULAR FILTRATION RATE 44.6 (>45); MAGNESIUM LEVEL 2.3 MG/DL (1.8-2.4); POTASSIUM SERUM 4.1 MMOL/L (3.5-5.1)
[2023-12-01] MEDS: ISOSORBIDE DIN. (ISORDIL) 30 MG TAB PO SCH (14:34)
[2023-12-01] MEDS: predniSONE 20 MG TAB PO SCH (22:00)
[2023-12-02 04:22] VITALS: BP 137/71; TEMP 98; O2SAT 97
[2023-12-02 07:31] VITALS: BP 132/60; TEMP 96.7; O2SAT 95
[2023-12-02 07:41] LABS: BASO % 0.1 % (0.0-1.0); HEMATOCRIT 36.2 % (36.0-47.0); HEMOGLOBIN 10.7 g/dl (12.0-15.5); LYMPH # 0.8 10^3/uL (1.5-5.0); LYMPH % 5.8 % (24.0-44.0); MEAN CORPUSCULAR HEMOGLOBIN 24.2 pg (27.0-33.0); MEAN CORPUSCULAR HGB CONC 29.6 g/dl (32.0-36.5); MEAN CORPUSCULAR VOLUME 81.7 fl (80.0-96.0); MONO # 0.6 10^3/uL (0.0-0.8); MONO % 4.4 % (2.0-8.0); NEUTROPHILS # 12.4 10^3/uL (1.5-8.5); NEUTROPHILS % 86.6 % (36.0-66.0); PLATELET COUNT, AUTOMATED 338 10^3/uL (150-450); RED BLOOD COUNT 4.43 10^6/uL (4.00-5.40); WHITE BLOOD COUNT 14.3 10^3/uL (4.0-10.0)
[2023-12-02 07:55] LABS: CALCIUM LEVEL 9.1 MG/DL (8.3-10.6); CREATININE FOR GFR 1.15 MG/DL (0.55-1.30); GLOMERULAR FILTRATION RATE 50.9 (>45); MAGNESIUM LEVEL 2.1 MG/DL (1.8-2.4); POTASSIUM SERUM 4.8 MMOL/L (3.5-5.1)
[2023-12-02 10:01] VITALS: O2SAT 98
[2023-12-02] MEDS: FUROSEMIDE 40 MG TAB PO SCH (11:06)
[2023-12-02 11:11] VITALS: BP 139/73
[2023-12-02 11:31] VITALS: O2SAT 81
== END 2023-12-02 16:05 | disposition home or self-care (01) | DRG 720 ==
LOC: M ED 22:23 → M ED INP 11-24 08:09 → M PCU 11-24 14:21 → M MSPAV 11-27 17:50 → M PCU 11-28 12:31
PROVIDERS: ADMIT Preventive Medicine Undersea and Hyperbaric Medicine; ATTEND General Practice
PROC: B246ZZZ Ultrasonography of Right and Left Heart (ICD-10-PCS; principal; 2023-11-25)
DX: A41.9 Sepsis, unspecified organism (principal); J96.01 Acute respiratory failure with hypoxia; I50.33 Acute on chronic diastolic (congestive) heart failure; N17.9 Acute kidney failure, unspecified; E87.4 Mixed disorder of acid-base balance; I13.0 Hypertensive heart and chronic kidney disease with heart failure and stage 1 through stage 4 chronic kidney disease, or unspecified chronic kidney disease; J18.9 Pneumonia, unspecified organism; K76.0 Fatty (change of) liver, not elsewhere classified; N18.30 Chronic kidney disease, stage 3 unspecified; E66.01 Morbid (severe) obesity due to excess calories; J44.1 Chronic obstructive pulmonary disease with (acute) exacerbation; J44.0 Chronic obstructive pulmonary disease with (acute) lower respiratory infection; Z68.43 Body mass index [BMI] 50.0-59.9, adult; E87.5 Hyperkalemia; E78.5 Hyperlipidemia, unspecified; D64.9 Anemia, unspecified; E86.0 Dehydration; I35.0 Nonrheumatic aortic (valve) stenosis; Z87.891 Personal history of nicotine dependence; Z90.49 Acquired absence of other specified parts of digestive tract; Z79.899 Other long term (current) drug therapy; Z59.00 Homelessness unspecified; F32.A Depression, unspecified; R91.8 Other nonspecific abnormal finding of lung field; K21.9 Gastro-esophageal reflux disease without esophagitis; I16.0 Hypertensive urgency; I24.89 Other forms of acute ischemic heart disease

== ENCOUNTER → 2025-03-10 | Outpatient (CLI) | payer MEDICAID, OTHER ==
[~2025-03-10] MED LIST changes: +AZIT-12 PO; +BUDE90AE INH; +CEFD300CAP PO; -CYCL5TAB PO; +CYCL5TAB4 PO; +DOXY-440 PO; -FLOM0.4C39 PO; +METO25TA4 PO; +OMEP-173 PO; +PRED20TA PO; -PULM90IN INH; +TAMS-18 PO
[2025-03-10 10:44] LABS: BASO # 0.1 10^3/uL (0.0-0.2); BASO % 0.6 % (0.0-1.0); EOS # 0.2 10^3/uL (0.0-0.5); EOS % 1.4 % (0.0-3.0); LYMPH # 1.9 10^3/uL (1.5-5.0); LYMPH % 17.3 % (24.0-44.0); MONO # 0.6 10^3/uL (0.0-0.8); MONO % 5.9 % (2.0-8.0); NEUTROPHILS # 8.0 10^3/uL (1.5-8.5); NEUTROPHILS % 74.1 % (36.0-66.0)
[2025-03-10 10:59] LABS: ESTIMATED AVERAGE GLUCOSE 111.0 MG/DL (60-110)
[2025-03-10 11:09] LABS: ALT/SGPT 16.0 U/L (7.0-40); AST/SGOT 16.0 U/L (<34); CALCIUM LEVEL 9.1 MG/DL (8.3-10.6); CARBON DIOXIDE LEVEL 26.0 MMOL/L (20-31); CHLORIDE LEVEL 104.0 MMOL/L (98-107); CHOLESTEROL LEVEL 181.0 MG/DL (<200); CHOLESTEROL RISK RATIO 5.7 (<5); CREATININE FOR GFR 1.27 MG/DL (0.55-1.30); GLOMERULAR FILTRATION RATE 47.5 (>45); LDL CHOLESTEROL 107.7 MG/DL (<100); NON-HDL-C 149.3 MG/DL; POTASSIUM SERUM 4.4 MMOL/L (3.5-5.1); SODIUM LEVEL 140.0 MMOL/L (136-145); TRIGLYCERIDES LEVEL 208.0 MG/DL (<150)
[2025-03-10 11:12] LABS: FREE T4 1.05 NG/DL (0.89-1.76)
== END ==
LOC: M PLALAB 08:33
PROVIDERS: ATTEND Registered Nurse
DX: E11.69 Type 2 diabetes mellitus with other specified complication (principal); E78.2 Mixed hyperlipidemia; E66.01 Morbid (severe) obesity due to excess calories

== ENCOUNTER → 2025-03-10 | Outpatient (CLI) | payer MEDICAID, OTHER | LOC: M PLALAB 08:35 | PROVIDERS: ATTEND Physician Assistant | DX: R06.02 Shortness of breath (principal) ==

== ENCOUNTER 2025-04-11 13:11 | Emergency (ER) | payer OTHER ==
[~2025-04-11] VITALS: Ht 162.6 cm; Wt 139.6 kg
[2025-04-11] MEDS: METOPROLOL TART 25 MG TABLET PO ONE (13:55)
[2025-04-11 14:21] LABS: BASO # 0.1 10^3/uL (0.0-0.2); BASO % 0.5 % (0.0-1.0); EOS # 0.3 10^3/uL (0.0-0.5); EOS % 2.3 % (0.0-3.0); LYMPH # 2.3 10^3/uL (1.5-5.0); LYMPH % 19.1 % (24.0-44.0); MONO # 0.6 10^3/uL (0.0-0.8); MONO % 5.3 % (2.0-8.0); NEUTROPHILS # 8.6 10^3/uL (1.5-8.5); NEUTROPHILS % 72.1 % (36.0-66.0); PLATELET COUNT, AUTOMATED 304 10^3/uL (150-450)
[2025-04-11 14:50] LABS: CPK CREATINE PHOSPHOKINASE 75.0 U/L (34-145)
[2025-04-11 14:51] LABS: ALT/SGPT 19.0 U/L (7.0-40); AST/SGOT 20.0 U/L (<34); CALCIUM LEVEL 9.1 MG/DL (8.3-10.6); CARBON DIOXIDE LEVEL 29.0 MMOL/L (20-31); CHLORIDE LEVEL 104.0 MMOL/L (98-107); CK-MB VALUE MASS 1.2 NG/ML (<3.6); CREATININE FOR GFR 1.2 MG/DL (0.55-1.30); GLOMERULAR FILTRATION RATE 50.9 (>45); MB/CK RELATIVE INDEX 1.6 (< OR =4); POTASSIUM SERUM 4.7 MMOL/L (3.5-5.1); SODIUM LEVEL 142.0 MMOL/L (136-145)
[2025-04-11] MEDS ORDERED: ISOVUE-370 76% 100 ML VIAL As Ordered ONE (15:24)
[2025-04-11 16:26] LABS: CK-MB VALUE MASS 1.4 NG/ML (<3.6)
[2025-04-11 16:32] LABS: CPK CREATINE PHOSPHOKINASE 75.0 U/L (34-145); MB/CK RELATIVE INDEX 1.86 (< OR =4)
[2025-04-11] MEDS ORDERED: AZIT-12 PO (17:14)
[2025-04-11 17:25] VITALS: BP 146/88; TEMP 98.1; O2SAT 94
== END 2025-04-11 17:29 | disposition left against medical advice (07) ==
LOC: M ED 13:11
DX: R06.02 Shortness of breath (principal); I49.1 Atrial premature depolarization; I10 Essential (primary) hypertension; N18.30 Chronic kidney disease, stage 3 unspecified; G47.33 Obstructive sleep apnea (adult) (pediatric); E66.9 Obesity, unspecified; F32.A Depression, unspecified; E78.5 Hyperlipidemia, unspecified; I51.7 Cardiomegaly; J44.9 Chronic obstructive pulmonary disease, unspecified; F17.200 Nicotine dependence, unspecified, uncomplicated; Z79.52 Long term (current) use of systemic steroids; Z79.899 Other long term (current) drug therapy; Z79.2 Long term (current) use of antibiotics; Z53.9 Procedure and treatment not carried out, unspecified reason
CPT/HCPCS: 36415; 71046; 71275; 80048; 80076; 82550; 82553; 83880; 84443; 84484; 85025; 87040; 87486; 87581; 87633; 87798; 93005; 93041; 94760; 99285; Q9967